=== PATIENT | female | born 1960 | race Caucasian/White ===

== ENCOUNTER → 2019-07-04 15:53 | Outpatient (BNVA) | payer BC, SELFPAY | PROVIDERS: PCP Family Medicine; Referring Provider Obstetrics & Gynecology; Visit Provider Obstetrics & Gynecology | DX: Z12.11 Encounter for screening for malignant neoplasm of colon (principal) | CPT/HCPCS: G0328 ==

== ENCOUNTER 2019-07-22 11:56 | Outpatient (CLI) | payer BC, SELFPAY ==
[2019-07-22 12:54] LABS: Basophils % 0.6 %; Eosinophils % 0.6 %; Hematocrit 42.5 % (37.0-47.0); Hemoglobin 13.7 g/dL (11.5-15.3); Lymphocytes # 1.5 10^3/uL (0.8-4.8); Lymphocytes % 23.2 %; Mean Corpuscular HGB Conc 32.2 g/dL (30.0-36.0); Mean Corpuscular Hemoglobin 32.9 pg (28.0-34.0); Mean Corpuscular Volume 102.2 fL (81-99); Mean Platelet Volume 10.7 fL (7.4-10.4); Monocytes # 0.6 10^3/uL (0.2-0.9); Monocytes % 9.8 %; Neutrophils # 4.1 10^3/uL (1.8-7.7); Neutrophils % 65.3 %; Nucleated Red Blood Cells % 0 %; Platelet Count 252 10^3/cmm (130-400); Red Blood Count 4.16 10^6/uL (4.1-5.3); Red Cell Distribution Width 13.6 % (12.1-15.1); White Blood Count 6.2 10^3/uL (4.0-10.0)
[2019-07-22 13:00] LABS: Albumin Level 4.6 g/dL (3.5-5.2); Anion Gap 19.2 (5-19); Blood Urea Nitrogen 20 mg/dL (6-20); Calcium 10.4 mg/dL (8.5-10.5); Carbon Dioxide 26 mmol/L (22-29); Chloride 102 mmol/L (98-107); Glomerular Filtration Rate 33.2 mL/min (90-130); Glucose 101 mg/dL (65-115); Phosphorus 3.5 mg/dL (2.5-4.5); Potassium 4.2 mmol/L (3.5-5.1); Sodium 143 mmol/L (136-145)
[2019-07-22 13:18] LABS: Urine Creatinine 296 mg/dL (28-217); Urine Protein Random 18 mg/dL
[2019-07-22 13:19] LABS: 25 Hydroxy Vitamin D 50 ng/mL (30-100)
[2019-07-22 13:24] LABS: UPRO/UCREAT Ratio 0.06 mg/mg CR
[2019-07-22 13:29] LABS: Calcium 10.1 mg/dL (8.5-10.5); Parathyroid Hormone 39.1 pg/mL (15-65)
== END 2019-07-22 11:57 | disposition home or self-care (01) ==
LOC: LAB 12:07
PROVIDERS: PCP Family Medicine; Visit Provider Internal Medicine Nephrology
DX: N18.3 Chronic kidney disease, stage 3 (moderate) (principal)
CPT/HCPCS: 80069; 82306; 82310; 82570; 83970; 84156; 85025

== ENCOUNTER 2019-11-29 16:26 | Outpatient (CLI) | payer BC, SELFPAY ==
[2019-11-29 17:04] LABS: Basophils # 0.1 10^3/uL (0.0-0.1); Basophils % 0.7 %; Eosinophils # 0.1 10^3/uL (0.0-0.8); Eosinophils % 1.3 %; Hematocrit 41.2 % (37.0-47.0); Hemoglobin 13.5 g/dL (11.5-15.3); Lymphocytes # 3.2 10^3/uL (0.8-4.8); Lymphocytes % 42.2 %; Mean Corpuscular HGB Conc 32.8 g/dL (30.0-36.0); Mean Corpuscular Hemoglobin 34.8 pg (28.0-34.0); Mean Corpuscular Volume 106.2 fL (81-99); Mean Platelet Volume 10.4 fL (7.4-10.4); Monocytes # 0.7 10^3/uL (0.2-0.9); Monocytes % 9.3 %; Neutrophils # 3.48 10^3/uL (1.8-7.7); Neutrophils % 45.8 %; Nucleated Red Blood Cells % 0 %; Platelet Count 252 10^3/cmm (130-400); Red Blood Count 3.88 10^6/uL (4.1-5.3); Red Cell Distribution Width 12.9 % (12.1-15.1); White Blood Count 7.6 10^3/uL (4.0-10.0)
[2019-11-29 17:47] LABS: Calcium 9.5 mg/dL (8.5-10.5); Parathyroid Hormone 76.7 pg/mL (15-65)
[2019-11-29 17:50] LABS: 25 Hydroxy Vitamin D 52 ng/mL (30-100); Albumin Level 4.7 g/dL (3.5-5.2); Anion Gap 14.9 (5-19); Blood Urea Nitrogen 28 mg/dL (6-20); Calcium 8.9 mg/dL (8.5-10.5); Carbon Dioxide 27 mmol/L (22-29); Chloride 103 mmol/L (98-107); Glomerular Filtration Rate 33.2 mL/min (90-130); Glucose 123 mg/dL (65-115); Phosphorus 3.9 mg/dL (2.5-4.5); Potassium 3.9 mmol/L (3.5-5.1); Sodium 141 mmol/L (136-145)
[2019-11-29 17:56] LABS: Urine Creatinine 292 mg/dL (28-217); Urine Protein Random 18 mg/dL
[2019-11-29 17:57] LABS: UPRO/UCREAT Ratio 0.06 mg/mg CR
== END 2019-11-29 16:27 | disposition home or self-care (01) ==
PROVIDERS: PCP Family Medicine; Visit Provider Nurse Practitioner
DX: N18.3 Chronic kidney disease, stage 3 (moderate) (principal)
CPT/HCPCS: 36415; 80069; 82306; 82310; 82570; 83970; 84156; 85025

== ENCOUNTER 2020-02-24 09:55 | Outpatient (CLI) | payer BC, SELFPAY ==
--- NOTE | 2020-02-24 10:02 | MM_ITS ---
WS: [id number] Exam: [place] [id number] Date/Time of Exam: 02/24/2020 10:25 AM Reason For Exam: SCREENING VIEWS: MLO and CC views both breasts. Comparison made with prior exam of 01/01/2015. Findings: There was no sign of mass, architectural distortion or suspicious calcification in either breast. He terogeneously dense MM/[id number] Impression: BI-RADS: 2-Benign FOLLOW-UP: 1 Year Follow-up This mammogram was also analyzed by the Computer Aided Detection System R2 Imag e Sap Consultant.
== END 2020-02-24 09:56 | disposition home or self-care (01) ==
LOC: RADSHAW 10:00
PROVIDERS: PCP Family Medicine; Visit Provider Obstetrics & Gynecology
DX: M31.6 Other giant cell arteritis (principal); Z12.31 Encounter for screening mammogram for malignant neoplasm of breast; Z79.899 Other long term (current) drug therapy; Z11.59 Encounter for screening for other viral diseases; Z11.1 Encounter for screening for respiratory tuberculosis; M32.9 Systemic lupus erythematosus, unspecified; D86.9 Sarcoidosis, unspecified; H53.9 Unspecified visual disturbance; Z79.52 Long term (current) use of systemic steroids
CPT/HCPCS: 36415; 77067; 80053; 85025; 85651; 86140; 86431; 86480; 86704; 86803; 87340; 99214

== ENCOUNTER 2020-05-17 09:59 | Inpatient (IN) | payer BC, SELFPAY ==
[2020-05-17] VITALS (24 sets, daily range): BP systolic 102–162; BP diastolic 60–105; PULSE 70–120; RESP 15–21; TEMP 36.5–37; O2SAT 88–99; BMI 38.2; BMI 17.4
--- NOTE | 2020-05-17 | CTR_ITS ---
PROCEDURE INFORMATION: Exam: CT Head Without Contrast Exam date and time: 05/17/2020 10:35 PM Age: 60 years old Clinical indication: Speech disturbance and weakness, extremity; Left; Patient HX: Sudden onset aphasia and lue weakness; Additional info: Stroke alert TECHNIQUE: Imaging protocol: Computed tomography of the head without contrast. Radiation optimization: All CT scans at this facility use at least one of these dose optimization techniques: automated exposure control; mA and/or kV adjustment per patient size (includes targeted exams where dose is matched to clinical indication); or iterative reconstruction. Other technique: STROKE PROTOCOL was implemented. COMPARISON: CT head wo con* [id number] 11/16/2017 3:53 PM RADIATION DOSE METRICS: Total DLP (mGy-cm): 769.39 FINDINGS: Brain: Normal. No hemorrhage. Unremarkable white matter. No mass effect. Cerebral ventricles: No ventriculomegaly. Bones/joints: Unremarkable. No acute fracture. Paranasal sinuses: Visualized sinuses are unremarkable. No fluid levels. Mastoid air cells: Visualized mastoid air cells are well aerated. Soft tissues: Unremarkable. CT/CT head wo con* [id number] IMPRESSION: No acute intracranial abnormality. Stable head CT compared with 11/16/2017. ASSESSMENT: ASPECTS ([place] Stroke Program Early CT Score) is 10. Radiation Dose CTDIVOL = (mGy): DLP = 769.39 (mGy-cm)
--- NOTE | 2020-05-17 | SCC_ITS ---
Procedure Done: 1. Cystoscopy with right ureteral stent placement 9.1 seconds of fluoroscopic guidance, for a cumulative dose of 2.8 mGy, was provided to Dr. Elder by the radiology department. C-arm images of the abdomen were saved for the patient's permanent record. [facility]
--- NOTE | 2020-05-17 10:58 | W.ED.FEMALGU ---
HPI - Female Genitourinary General: Chief complaint: Urogenital-Female Stated complaint: Sick/Back pain Time Seen by Provider: 05/17/20 10:39 History of Present Illness: HPI Narrative: The patient is a 60-year-old female with past medical history of left nephrectomy, chronic kidney disease, and hypertension. She comes to the ER complaining of right flank pain wrapping to her right groin and nausea vomiting since she woke this morning. She has not had this before but says she feels like it is a stone or an infection or something. Denies urinary symptoms. Admits mild diarrhea. MD elicited complaint: flank pain Onset (ago): hour(s) (5) Severity: moderate Severity scale (1-10): 10 Quality of pain: sharp Consistency: constant Associated symptoms: Reports abdominal pain and nausea; Deny headache(s) Review of Systems General: Reports: 10 or more systems reviewed and unremarkable except in HPI and below Const: Denies: fatigue Eyes: Denies: change in vision, blurry vision or eye redness ENMT: Denies: throat pain, swelling of lips/tongue, ear or mastoid pain or nasal congestion Card: Denies: chest pain, palpitations, irregular heart rhythm, edema, dyspnea on exertion or orthopnea Resp: Denies: dyspnea, productive cough or non-productive cough GI: Reports: abdominal pain, nausea, vomiting and diarrhea : Reports: flank pain; Denies: difficulty voiding, urinary frequency or urinary urgency Musc: Denies: neck pain, back pain, extremity pain, joint pain, joint redness, limited range of motion or muscle weakness Skin/Breast: Denies: rash, pruritus, erythema, skin pain or skin tenderness Neuro: Denies: headache(s), numbness in extremities, weakness in extremities, sensory changes, difficulty walking, dizziness, confusion or Slurred speech present Psych: Denies: anxiety or depression Endo: Denies: polyuria All/Imm: Denies: urticaria, throat swelling or tongue swelling PFSH ED PFSH: Medical History (Updated 05/17/20 @ 14:37 by Link Ramírez MD) Asthma Chronic kidney disease, stage 3 Current chronic use of systemic steroids Depression Dermatitis Gastroesophageal reflux History of melanoma Right arm - removed 11/2013. Right forearm - removed 08/2011. 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 08/2011: Removed from right forearm. H/O oral surgery (~2013) Remove growth from mouth - benign. H/O: hysterectomy (12/11/07) LAVH/BSO. Dx: Uterine fibroids, Menorrhagia, Dysmenorrhea. Performed by Dr. Kelly at [facility] in [place], [place]. History of colonoscopy (~03/2015) Dr. Stewart [place] teeth extracted (~2004) Family History Grandfather Stroke Maternal grandfather Mother Hyperlipidemia Hypertension Father Heart disease Grandmother Heart disease Paternal grandmother Diabetes Paternal grandmother Hypertension Maternal grandmother Denies family history of Anesthesia complication Bleeding disorder Social History Smoking and tobacco status: former smoker Quit status (tobacco): has quit using tobacco Year quit tobacco: 1990 Alcohol intake: current Alcohol intake frequency: holidays/special occasions only History of recent travel: No Physical Exam Const: COMMON NORMALS: no acute distress, average body habitus, patient oriented x3, no limitations, healthy appearing, alert and well nourished GENERAL APPEARANCE: cooperative, comfortable, well kempt and well developed ORIENTATION/CONSCIOUSNESS: Yes awake, Yes oriented to person, Yes oriented to place and Yes oriented to time HENMT: COMMON NORMALS: normocephalic, external ears normal and Normal external nose present HEAD & SCALP: normal to inspection and normocephalic NOSE: Normal external nose present EXTERNAL EAR: Yes external ears normal MOUTH: Normal oral and palatal mucosa present THROAT: posterior oropharynx normal Eye: COMMON NORMALS: Equal, round and reactive pupils present and EOMs intact bilaterally GENERAL EYE: appearance normal, both eyes and all related structures PUPIL: Yes Equal, round and reactive pupils present Neck/C-Spine: COMMON NORMALS: full ROM, no lymphadenopathy, no meningeal signs and no JVD GENERAL: Yes normal visual inspection Lymph: LYMPHATIC: no lymphadenopathy noted Chest: COMMONS NORMALS: normal inspection of the chest and normal palpation of entire chest wall Resp: COMMON NORMALS: normal respiratory effort, No retractions, No use of accessory muscles, clear to auscultation bilaterally and percussion normal EFFORT & INSPECTION: Yes able to speak in complete sentences AUSCULTATION: clear to auscultation bilaterally PERCUSSION: percussion normal Cardio: COMMON NORMALS: no JVD, regular rate, regular rhythm, S1 normal heart sound present, S2 normal heart sound present and Peripheral pulses 2+ throughout RATE: regular rate RHYTHM: regular rhythm HEART SOUNDS: S1 normal heart sound present and S2 normal heart sound present PERIPHERAL PULSES: Peripheral pulses 2+ throughout GI: COMMON NORMALS: Normal to inspection, nondistended, normoactive bowel sounds present, Soft to palpation, non-tender and no masses INSPECTION: Yes normal to inspection PALPATION: Yes Soft to palpation OTHER: Positive right flank pain : OTHER: Positive right flank pain Back/Pelvis: COMMON NORMALS: thoracic and lumbar spine normal to inspection, no thoracic nor lumbar tenderness and thoraco-lumbar ROM normal Extremity: COMMON NORMALS: normal to inspection, full ROM, capillary refill normal, no joint enlargement and no pedal edema GENERAL: Yes normal exam except as noted Neuro: COMMON NORMALS: patient oriented x3, CN's II-XII intact bilaterally, moves all extremities, no focal motor deficits, no sensory deficits noted and gait normal SENSORIUM/ORIENTATION: Yes alert, Yes oriented to person, Yes oriented to place and Yes oriented to time MENINGEAL SIGNS: Yes no meningeal signs Psych: COMMON NORMALS: mental status grossly normal, Normal thought process present, cooperative, normal affect and speech normal APPEARANCE: Yes well kempt ATTITUDE: Yes calm SPEECH: Yes normal speech THOUGHT PROCESS: Normal thought process present Skin: COMMON NORMALS: no rashes or lesions noted GENERAL SKIN EXAM: no rashes or lesions noted Course Vital Signs: Vital signs: Vital Signs Temperature 97.7 F 05/17/20 10:02 Pulse Rate 83 05/17/20 10:02 Respiratory Rate 16 05/17/20 10:02 Blood Pressure 159/80 05/17/20 13:23 Pulse Oximetry 99 05/17/20 13:23 MDM - Female MDM Narrative: Medical decision making narrative: The patient has a 7 mm ureteropelvic junction stone. And a UTI. Started on levofloxacin IV. Discussed with Dr. Elder who will admit her and we are calling in the surgical team for a procedure. Lab Data: Labs: Lab Results 05/17/20 05/17/20 05/17/20 Range/Units 10:55 10:55 10:55 WBC 11.3 H (4.0-10.0) 10^3/ uL RBC 3.96 L (4.1-5.3) 10^6/u L Hgb 13.3 (11.5-15.3) g/dL Hct 40.0 (37.0-47.0) % MCV 101.0 H (81-99) fL MCH 33.6 (28.0-34.0) pg MCHC 33.3 (30.0-36.0) g/dL RDW 12.7 (12.1-15.1) % Plt Count 231 (130-400) 10^3/c mm MPV 10.3 (7.4-10.4) fL Neut % (Auto) 77.8 % Lymph % (Auto) 14.1 % Davidson % (Auto) 6.6 % Eos % (Auto) 0.8 % Baso % (Auto) 0.3 % Neut # (Auto) 8.79 H (1.8-7.7) 10^3/u L Lymph # (Auto) 1.6 (0.8-4.8) 10^3/u L Davidson # (Auto) 0.8 (0.2-0.9) 10^3/u L Eos # (Auto) 0.1 (0.0-0.8) 10^3/u L Baso # (Auto) 0.0 (0.0-0.1) 10^3/u L Nucleated RBC % (a uto) 0 % Nucleated RBCs # 0.0 /100WBC Sodium 141 (136-145) mmol/L Potassium 4.2 (3.5-5.1) mmol/L Chloride 104 (98-107) mmol/L Carbon Dioxide 24 (22-29) mmol/L Anion Gap 17.2 (5-19) BUN 23 H (6-20) mg/dL Creatinine 1.7 H (0.5-0.9) mg/dL GFR Calculation 30.9 L (90-130) mL/min Glucose 100 (65-115) mg/dL Calculated Osmolal ity 296 H (285-295) mOsm/k g Lactate 2.0 (0.5-2.2) mmol/L Calcium 9.5 (8.5-10.5) mg/dL Total Bilirubin 0.3 (0.15-1.2) mg/dL AST 25 (0-32) U/L ALT 24 (0-33) U/L Alkaline Phosphata se 76 (35-105) IU/L Total Protein 7.2 (6.6-8.7) g/dL Albumin 4.2 (3.5-5.2) g/dL Globulin 3.0 (1.3-4.6) g/dL Lipase 30 (13-60) U/L Urine Color (Yellow) Urine Appearance (CLEAR) Urine pH (5-7) Ur Specific Gravit y (1.005-1.030) Urine Protein (Negative) Urine Glucose (UA) (Normal) Urine Ketones (Negative) Urine Blood (Negative) Urine Nitrate (Negative) Urine Bilirubin (Negative) Urine Urobilinogen (Negative) mg/dL Ur Leukocyte [place] (Negative) Urine RBC (0-2) /hpf Urine WBC (0-5) /hpf Ur Squamous Epith Cells (0-5) /hpf Amorphous Sediment Urine Bacteria (NONE) /hpf 05/17/20 Range/Units 11:57 WBC (4.0-10.0) 10^3/ uL RBC (4.1-5.3) 10^6/u L Hgb (11.5-15.3) g/dL Hct (37.0-47.0) % MCV (81-99) fL MCH (28.0-34.0) pg MCHC (30.0-36.0) g/dL RDW (12.1-15.1) % Plt Count (130-400) 10^3/c mm MPV (7.4-10.4) fL Neut % (Auto) % Lymph % (Auto) % Davidson % (Auto) % Eos % (Auto) % Baso % (Auto) % Neut # (Auto) (1.8-7.7) 10^3/u L Lymph # (Auto) (0.8-4.8) 10^3/u L Davidson # (Auto) (0.2-0.9) 10^3/u L Eos # (Auto) (0.0-0.8) 10^3/u L Baso # (Auto) (0.0-0.1) 10^3/u L Nucleated RBC % (a uto) % Nucleated RBCs # /100WBC Sodium (136-145) mmol/L Potassium (3.5-5.1) mmol/L Chloride (98-107) mmol/L Carbon Dioxide (22-29) mmol/L Anion Gap (5-19) BUN (6-20) mg/dL Creatinine (0.5-0.9) mg/dL GFR Calculation (90-130) mL/min Glucose (65-115) mg/dL Calculated Osmolal ity (285-295) mOsm/k g Lactate (0.5-2.2) mmol/L Calcium (8.5-10.5) mg/dL Total Bilirubin (0.15-1.2) mg/dL AST (0-32) U/L ALT (0-33) U/L Alkaline Phosphata se (35-105) IU/L Total Protein (6.6-8.7) g/dL Albumin (3.5-5.2) g/dL Globulin (1.3-4.6) g/dL Lipase (13-60) U/L Urine Color Yellow (Yellow) Urine Appearance Cloudy (CLEAR) Urine pH 7 (5-7) Ur Specific Gravit y 1.015 (1.005-1.030) Urine Protein 3+ H (Negative) Urine Glucose (UA) Norm (Normal) Urine Ketones Negative (Negative) Urine Blood 3+ H (Negative) Urine Nitrate Negative (Negative) Urine Bilirubin Neg (Negative) Urine Urobilinogen Norm (Negative) mg/dL Ur Leukocyte [place] 2+ H (Negative) Urine RBC 5-10 H (0-2) /hpf Urine WBC Too numerous to c nt H (0-5) /hpf Ur Squamous Epith Cells None (0-5) /hpf Amorphous Sediment Not Reportable Urine Bacteria 2+ H (NONE) /hpf Discharge Plan Discharge Patient Disposition: Admitted As Inpatient Clinical Impression: Ureterolithiasis, UTI (urinary tract infection), Acute kidney injury Condition: Stable Coding Level of Care Code ED Diamond Sorter for g Fwd Exam Comprehensive
[2020-05-17 11:04] LABS: Basophils % 0.3 %; Eosinophils # 0.1 10^3/uL (0.0-0.8); Eosinophils % 0.8 %; Hemoglobin 13.3 g/dL (11.5-15.3); Lymphocytes # 1.6 10^3/uL (0.8-4.8); Lymphocytes % 14.1 %; Mean Corpuscular HGB Conc 33.3 g/dL (30.0-36.0); Mean Corpuscular Hemoglobin 33.6 pg (28.0-34.0); Mean Platelet Volume 10.3 fL (7.4-10.4); Monocytes # 0.8 10^3/uL (0.2-0.9); Monocytes % 6.6 %; Neutrophils # 8.79 10^3/uL (1.8-7.7); Neutrophils % 77.8 %; Nucleated Red Blood Cells % 0 %; Platelet Count 231 10^3/cmm (130-400); Red Blood Count 3.96 10^6/uL (4.1-5.3); Red Cell Distribution Width 12.7 % (12.1-15.1); White Blood Count 11.3 10^3/uL (4.0-10.0)
[2020-05-17] MEDS: sodium chloride 0.9% 1,000 ML 999 ML IV ×2 (11:04→12:48)
[2020-05-17] MEDS: ketorolac 30 mg/mL INJ 15 MG IVP (11:05)
[2020-05-17] MEDS: ondansetron 2 mg/ML SDV 2 mL 4 MG IVP ×2 (11:05→16:02)
[2020-05-17 11:23] LABS: Alanine Aminotransferase 24 U/L (0-33); Albumin Level 4.2 g/dL (3.5-5.2); Alkaline Phosphatase 76 IU/L (35-105); Anion Gap 17.2 (5-19); Aspartate Amino Transferase 25 U/L (0-32); Blood Urea Nitrogen 23 mg/dL (6-20); Calcium 9.5 mg/dL (8.5-10.5); Carbon Dioxide 24 mmol/L (22-29); Chloride 104 mmol/L (98-107); Glomerular Filtration Rate 30.9 mL/min (90-130); Glucose 100 mg/dL (65-115); Lipase 30 U/L (13-60); Osmolality Calculated 296 mOsm/kg (285-295); Potassium 4.2 mmol/L (3.5-5.1); Sodium 141 mmol/L (136-145); Total Bilirubin 0.3 mg/dL (0.15-1.2); Total Protein 7.2 g/dL (6.6-8.7)
--- NOTE | 2020-05-17 12:39 | CTR_ITS ---
PROCEDURE INFORMATION: Exam: CT Abdomen And Pelvis Without Contrast Exam date and time: 05/17/2020 1:26 PM Age: 60 years old Clinical indication: Abdominal pain; Right; Prior surgery; Surgery date: 6+ months; Surgery type: Hyst, R neph(donation); Patient HX: C/O R flank pain TECHNIQUE: Imaging protocol: Computed tomography of the abdomen and pelvis without contrast. Radiation optimization: All CT scans at this facility use at least one of these dose optimization techniques: automated exposure control; mA and/or kV adjustment per patient size (includes targeted exams where dose is matched to clinical indication); or iterative reconstruction. COMPARISON: CT Abdomen/Pelvis Renal [id number] 12/02/2013 3:44 PM RADIATION DOSE METRICS: Total DLP (mGy-cm): 1741.29 FINDINGS: Lungs: There is bilateral dependent atelectasis. Mediastinal space: A moderate size hiatal hernia is present. Liver: There is heterogeneous low attenuation of the liver, suggestive of fatty infiltration. In segment IVb, there is a new hypodense lesion with irregular margin measuring 2.8 x 2.2 x 4.4 cm. Gallbladder and bile ducts: Normal. No calcified stones. No ductal dilation. Pancreas: Normal. No ductal dilation. Spleen: A small accessory splenule is noted in the left upper quadrant. The spleen is unremarkable. Adrenal glands: Normal. No mass. Kidneys and ureters: The left kidney is absent. There is a 0.7 cm obstructing stone in the left UPJ/proximal ureter, resulting in mild hydronephrosis and stranding of the perirenal fat. Additional nonobstructing stones measuring 1.4 cm and 0.2 cm are noted in the right lower kidney. Stomach and bowel: Unremarkable. No obstruction. No mucosal thickening. Appendix: No evidence of appendicitis. Intraperitoneal space: Unremarkable. No free air. No significant fluid collection. Vasculature: Unremarkable. No abdominal aortic aneurysm. Lymph nodes: Unchanged prominent lymph node measuring 2.0 cm in the right pericardiophrenic fat/angle. Urinary bladder: Unremarkable as visualized. Reproductive: Unremarkable as visualized. Bones/joints: Unremarkable. No acute fracture. Soft tissues: Unremarkable. CT/CT kidney stone [id number] IMPRESSION: 1. Obstructing stone in the right UPJ/proximal ureter, resulting in mild hydronephrosis. Additional nonobstructing stones in the right lower kidney. 2. New hypodense lesion in segment IVb of the liver. Further evaluation with contrast enhanced abdomen MRI in a non emergent basis is recommended. Radiation Dose CTDIVOL = (mGy): DLP = 1741.29 (mGy-cm)
[2020-05-17 13:13] LABS: Bilirubin Urine Neg (Negative); Blood Urine 3+ (Negative); Glucose Urine UA Norm (Normal); Ketones Urine Negative (Negative); Leukocyte Esterase Urine 2+ (Negative); Nitrate Urine Negative (Negative); Protein Urine 3+ (Negative); Specific Gravity, Urine 1.015 (1.005-1.030); Urine Appearance Cloudy (CLEAR); Urine Color Yellow (Yellow); Urobilinogen Urine Norm (Negative); pH Urine 7 (5-7)
[2020-05-17] MEDS: levofloxacin-dextrose 5% 250 MG/50 ML PREMIX 50 MG IV ×2 (13:13→16:25)
[2020-05-17 13:14] LABS: Add Urine Culture? Yes; Add Urine Microscopic? YES; Bacteria Urine 2+ /hpf; WBC Urine TOO NUMEROUS TO CNT /hpf (0-5)
--- NOTE | 2020-05-17 15:10 | PM.HP ---
Providers/Chief Complaint Primary Care Provider: Maira Gilbert MD Chief Complaint: Sick/Back pain History of Present Illness Zeina Sawant is a 60 year old female who presented to the emergency department today with evidence of right flank pain suspicious for renal calculus. No prior history of stones. Work-up: 1. Urinalysis showed too numerous to count white cells, 2+ bacteria, nitrite negative. 2. White count was elevated 11,000. 3. Creatinine was 1.[address] scan showed a 7 mm right proximal ureteral stone with significant obstructive changes. She denies any significant UTI preceding symptoms but does admit to a chronic history of urgency and frequency. Denies fever or chills. Has had nausea and vomiting. In addition she is on chronic steroids for temporal artery arteritis. No contraindications to surgical intervention. I reviewed with her the risks associated with infection and obstruction. I have recommended emergency right ureteral stent placement. Also reviewed the possibility of ureteroscopy if the wire is not easily able to pass the stone. Discussed percutaneous nephrostomy if inability to gain access in a retrograde fashion. She has been treated with antibiotics. Informed consent was obtained. Review of Systems Const: Denies: fever(s), chills or body aches Eyes: Denies: change in vision or blurry vision ENMT: Denies: throat pain or hoarseness Card: Denies: chest pain or palpitations Resp: Denies: dyspnea, productive cough or wheezing GI: Reports: abdominal pain, nausea and vomiting : Reports: flank pain, urinary frequency and urinary urgency; Denies: difficulty voiding or dysuria Musc: Denies: joint swelling, joint redness or joint warmth Skin/Breast: Denies: rash or changing lesions Neuro: Denies: headache(s), confusion, Slurred speech present or seizure-like activity Psych: Denies: anxiety or memory loss Endo: Denies: polyuria or flushing Devon/Lymph: Denies: easy bruising or easy bleeding All/Imm: Denies: urticaria or acute wheezing Medications/Allergies Home Medications Medication Instructions Recorded Confirmed Last Taken Type albuterol sulfate 90 mcg/actuation 1 puff INHALATION Q4H PRN gm 04/09/19 05/17/20 Unknown History aerosol inhaler cetirizine 10 mg capsule 10 mg PO DAILY@0600 cap 04/09/19 05/17/20 05/16/20 History fluticasone propionate 110 2 puff INHALATION DAILY PRN gm 04/09/19 05/17/20 Unknown History mcg/actuation HFA aerosol inhaler fluticasone propionate 50 2 spray INTRANASAL DAILY@0600 ml 04/09/19 05/17/20 05/16/20 History mcg/actuation nasal spray,suspension cholecalciferol (vitamin D3) 100 2,000 unit PO BID@0600,2300 cap 06/24/19 05/17/20 05/16/20 History mcg (4,000 unit) capsule lisinopril 5 mg tablet 10 mg PO DAILY@0600 tab 09/03/19 05/17/20 05/16/20 History Pepcid 20 mg PO BID@0600,2300 05/17/20 05/17/20 05/16/20 History Zoloft 150 mg PO DAILY@0600 05/17/20 05/17/20 05/16/20 History estradiol 0.5 mg PO BID@0600,2300 05/17/20 05/17/20 05/16/20 History afyxjfkcwhfl-hbqhrxbr-tsmjle 1 tab PO DAILY@0600 05/17/20 05/17/20 05/16/20 History [Multivitamin 50 Plus] prednisone 2 mg PO BID@0600,2300 05/17/20 05/17/20 05/16/20 History tocilizumab [Actemra] 162 mg SUBCUT Q7D 05/17/20 05/17/20 05/11/20 History Allergies Allergy/AdvReac Type Severity Reaction Status Date / Time No Known Allergies Allergy Verified 02/24/20 11:33 PFSH Acute PFSH: Medical History (Updated 05/17/20 @ 15:19 by Carlton Elder MD) Asthma Chronic kidney disease, stage 3 Current chronic use of systemic steroids Depression Dermatitis Gastroesophageal reflux History of melanoma Right arm - removed 11/2013. Right forearm - removed 08/2011. 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 08/2011: Removed from right forearm. H/O oral surgery (~2013) Remove growth from mouth - benign. H/O: hysterectomy (12/11/07) LAVH/BSO. Dx: Uterine fibroids, Menorrhagia, Dysmenorrhea. Performed by Dr. Kelly at [facility] in [place], [place]. History of colonoscopy (~03/2015) Dr. Stewart [place] teeth extracted (~2004) Family History Grandfather Stroke Maternal grandfather Mother Hyperlipidemia Hypertension Father Heart disease Grandmother Heart disease Paternal grandmother Diabetes Paternal grandmother Hypertension Maternal grandmother Denies family history of Anesthesia complication Bleeding disorder Social History Smoking and tobacco status: former smoker Quit status (tobacco): has quit using tobacco Year quit tobacco: 1990 Alcohol intake: current Alcohol intake frequency: holidays/special occasions only History of recent travel: No Vitals/I&O/Wt Last Vital Signs Temp 97.7 F 05/17/20 10:02 Pulse 83 05/17/20 10:02 Resp 16 05/17/20 10:02 BP 159/80 05/17/20 13:23 Pulse Ox 99 05/17/20 13:23 05/17/20 05/17/20 05/17/20 06:59 14:59 22:59 Intake Total 2049 Balance 2049 Weight last 48 hrs Weight 230 lb Physical Exam Const: COMMON NORMALS: no acute distress, alert and well nourished GENERAL APPEARANCE: well kempt and well developed ORIENTATION/CONSCIOUSNESS: not confused HENMT: HEAD & SCALP: normocephalic and atraumatic Eye: COMMON NORMALS: conjunctivae normal and no scleral icterus Neck/C-Spine: COMMON NORMALS: full ROM GENERAL: Yes normal visual inspection Lymph: LYMPHATIC: no lymphadenopathy noted and no lymphedema noted Resp: COMMON NORMALS: normal respiratory effort EFFORT & INSPECTION: No labored and No Actively coughing AUSCULTATION: clear to auscultation bilaterally Cardio: COMMON NORMALS: regular rate, regular rhythm and No murmurs present (Cardio) RATE: regular rate RHYTHM: regular rhythm BRUITS: no carotid bruits GI: COMMON NORMALS: Soft to palpation INSPECTION: Yes normal to inspection PALPATION: Yes Tenderness to palpation present (GI) Details: RLQ and RUQ : COMMON NORMALS: No no CVA tenderness and Yes normal external appearance BLADDER/KIDNEY EXAM: Yes bladder normal to palpation EXTERNAL FEMALE EXAM: Yes normal appearance of the urethra Back/Pelvis: GENERAL BACK: Yes CVA tenderness CVA tenderness: right Extremity: COMMON NORMALS: no clubbing, cyanosis or edema Neuro: COMMON NORMALS: no focal motor deficits SENSORIUM/ORIENTATION: Yes alert Psych: COMMON NORMALS: mental status grossly normal APPEARANCE: Yes grossly normal and Yes well kempt ATTITUDE: Yes calm and Yes engaged Skin: COMMON NORMALS: no rashes or lesions noted and no jaundice GENERAL SKIN EXAM: no rashes or lesions noted, turgor normal and no mottling Data : 05/17/20 10:55 05/17/20 10:55 A&P Assessment and plan (1) Ureterolithiasis: 7 mm right UPJ stone with obstruction, complicated by UTI Status: Acute (2) UTI (urinary tract infection): Too numerous to count white blood cells. Elevated white count. No clear evidence of sepsis. Status: Acute Qualifiers: Urinary tract infection type: site unspecified (3) Acute kidney injury: Creatinine 1.7. Status: Acute (4) Temporal giant cell arteritis: On chronic steroids Status: Acute (5) Chronic kidney disease, stage 3: Status: Acute (6) Current chronic use of systemic steroids: Status: Acute Attestations Medical Necessity Statement*: Evidence of obstructive pyelonephritis. Plan for emergency stent placement, IV antibiotics, delayed treatment of the stone until infection improved. Coding Level of Care Code Acute Traffic Sign Supervisor for [facility] Fwd Exam Comprehensive Diagnoses Ureterolithiasis N20.1 UTI (urinary tract infection) N39.0 Urinary tract infection type: site unspecified Acute kidney injury N17.9 Temporal giant cell arteritis M31.6 Chronic kidney disease, stage 3 N18.3 Current chronic use of systemic steroids Z79.52
--- NOTE | 2020-05-17 15:40 | SC_ITS ---
WS: [id number] INTRAOPERATIVE TECHNIQUE: 2 Spot fluoroscopic images for intraoperative purposes. FLUOROSCOPY TIME: 9.1 seconds CLINICAL INFORMATION: ureter stone COMPARISON: None. FINDINGS: Partially visualized right ureteral stent SC/C-arm [place] for Urology IMPRESSION: Images obtained for intraoperative purposes.
--- NOTE | 2020-05-17 15:57 | P.ANESASSM_ITS ---
Pre-Anesthetic Assessment Pre-Anesthetic Assessment: Height/Weight: Height 1.65 m Weight 104.326 kg Temp Pulse Resp BP Pulse Ox 97.7 F 83 16 159/80 99 05/17/20 10:02 05/17/20 10:02 05/17/20 10:02 05/17/20 13:23 05/17/20 13:23 Preop Diagnosis: Ureteral stone Proposed Procedure: Operation Date: 05/17/20 15:35 Proposed Procedures p Cystoscopy(Not Applicable) - Carlton Elder MD s Ureteral Stent Placement(Not Applicable) - Carlton Elder MD Familial anesthetic complications: None Was Beta Ronn taken within 24 hours: N/A Last intake: NPO > 8 hrs Social: Comment: former smoker Exam: Pre-Anes Outpt Exam: alert, oriented x 3, clear to auscultation b ilaterally and regular rate & rhythm Airway: Cervical ROM: WNL MP: 3 Dentition: Other (1 missing tooth) Pulmonary: Pulmonary: Asthma CV/HEM: CV/HEM: HTN : : Chronic renal Insufficiency (Donated L kidney) Musc/skel: Comments: giant cell arteritis on steroids Anesthetic Plan: ASA status: 3E Anesthesia: General Risk of > 500 ml blood loss (7ml/kg in children): No PFSH Anesthesia PFSH: Medical History (Updated 05/17/20 @ 15:19 by Carlton Elder MD) Asthma Chronic kidney disease, stage 3 Current chronic use of systemic steroids Depression Dermatitis Gastroesophageal reflux History of melanoma Right arm - removed 11/2013. Right forearm - removed 08/2011. 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 08/2011: Removed from right forearm. H/O oral surgery (~2013) Remove growth from mouth - benign. H/O: hysterectomy (12/11/07) LAVH/BSO. Dx: Uterine fibroids, Menorrhagia, Dysmenorrhea. Performed by Dr. Kelly at [facility] in [place], [place]. History of colonoscopy (~03/2015) Dr. Giurgius Harrod teeth extracted (~2004) Family History Grandfather Stroke Maternal grandfather Mother Hyperlipidemia Hypertension Father Heart disease Grandmother Heart disease Paternal grandmother Diabetes Paternal grandmother Hypertension Maternal grandmother Denies family history of Anesthesia complication Bleeding disorder Social History Smoking and tobacco status: former smoker Quit status (tobacco): has quit using tobacco Year quit tobacco: 1990 Alcohol intake: current Alcohol intake frequency: holidays/special occasions only History of recent travel: No Data Anesthesia CBC & Chem 7: 05/17/20 10:55 05/17/20 10:55 Other Labs: Laboratory Results - last 48 hr 05/17/20 05/17/20 05/17/20 10:55 10:55 10:55 WBC 11.3 H RBC 3.96 L Hgb 13.3 Hct 40.0 MCV 101.0 H MCH 33.6 MCHC 33.3 RDW 12.7 Plt Count 231 MPV 10.3 Neut % (Auto) 77.8 Lymph % (Auto) 14.1 Kershaw % (Auto) 6.6 Eos % (Auto) 0.8 Baso % (Auto) 0.3 Neut # (Auto) 8.79 H Lymph # (Auto) 1.6 Kershaw # (Auto) 0.8 Eos # (Auto) 0.1 Baso # (Auto) 0.0 Nucleated RBC % (auto) 0 Nucleated RBCs # 0.0 Sodium 141 Potassium 4.2 Chloride 104 Carbon Dioxide 24 Anion Gap 17.2 BUN 23 H Creatinine 1.7 H GFR Calculation 30.9 L Glucose 100 Calculated Osmolality 296 H Lactate 2.0 Calcium 9.5 Total Bilirubin 0.3 AST 25 ALT 24 Alkaline Phosphatase 76 Total Protein 7.2 Albumin 4.2 Globulin 3.0 Lipase 30 Urine Color Urine Appearance Urine pH Ur Specific Kinsley Urine Protein Urine Glucose (UA) Urine Ketones Urine Blood Urine Nitrate Urine Bilirubin Urine Urobilinogen Ur Leukocyte Esterase Urine RBC Urine WBC Ur Squamous Epith Cells Amorphous Sediment Urine Bacteria 05/17/20 11:57 WBC RBC Hgb Hct MCV MCH MCHC RDW Plt Count MPV Neut % (Auto) Lymph % (Auto) Kershaw % (Auto) Eos % (Auto) Baso % (Auto) Neut # (Auto) Lymph # (Auto) Kershaw # (Auto) Eos # (Auto) Baso # (Auto) Nucleated RBC % (auto) Nucleated RBCs # Sodium Potassium Chloride Carbon Dioxide Anion Gap BUN Creatinine GFR Calculation Glucose Calculated Osmolality Lactate Calcium Total Bilirubin AST ALT Alkaline Phosphatase Total Protein Albumin Globulin Lipase Urine Color Yellow Urine Appearance Cloudy Urine pH 7 Ur Specific Kinsley 1.015 Urine Protein 3+ H Urine Glucose (UA) Norm Urine Ketones Negative Urine Blood 3+ H Urine Nitrate Negative Urine Bilirubin Neg Urine Urobilinogen Norm Ur Leukocyte Esterase 2+ H Urine RBC 5-10 H Urine WBC Too numerous to cnt H Ur Squamous Epith Cells None Amorphous Sediment Not Reportable Urine Bacteria 2+ H Cardiac Studies: No Data to Display
[2020-05-17] MEDS: morphine 4 mg/mL SDV 1 mL 2 MG IVP (16:01)
[2020-05-17] MEDS: sodium chloride 0.9% 1,000 ML 30 ML IV (16:12)
[2020-05-17] MEDS: scopolamine 1.5 Patch 1 PATCH TRANSDERMA (16:15)
--- NOTE | 2020-05-17 16:16 | PM.OP ---
Operative Report Date of procedure: May 17, 2020 Pre-op Diagnosis: Obstructive pyelonephritis, right proximal ureteral stone Post-op diagnosis: same Procedure Done: 1. Cystoscopy with right ureteral stent placement Implants: 7 Fr by 26 cm double-pigtail stent no string Pathology: none sent Surgeon: Jael Anesthesia: General Estimated blood loss: Minimal Urine output: Not measured Complications: None Findings: Stent placed without difficulty. Condition: stable Disposition: PACU Brief History: Mrs. Sawant is a 60-year-old white female who I evaluated for the first time tonight at the request of the emergency department for evidence of obstructive pyelonephritis related to a 7 mm proximal ureteral stone, pyuria, elevated white count, and history of lower urinary tract symptoms suspicious for possible chronic cystitis. It was recommended based on these findings to take her to the operating room for ureteral stent placement with anticipation of antibiotic therapy to clear the infection before dealing with the stone definitively Procedure: After emergent evaluation examination and obtaining of informed consent she was taken to the operating suite on 05/17/2020 where general anesthesia was administered without difficulty after appropriate timeout was performed, SCDs confirmed to be functioning, preoperative antibiotics administered, beta-bo protocol confirmed, preoperative steroids bolused. Prepped and draped in usual sterile fashion in dorsolithotomy position paying careful attention to avoiding pressure points. 21 Albanian cystoscope with 30 degree lens was introduced into the urethral meatus and advanced into the bladder under videoscopy. The bladder was systematically examined with 30 and 70 degree lenses. No stones were seen. The bladder showed evidence of infection. The urine was cloudy. A flexible tip guidewire was then advanced up the right ureter bypassing the stone curling in the area of the upper pole calyx. A significant amount of high-pressure urine drained which was cloudy. A seven Albanian by 26 cm double-pigtail stent was advanced over the guidewire through the cystoscope into appropriate position as confirmed via fluoroscopy and cystoscopy. Bladder was drained. Procedure completed. She tolerated the procedure well without complications and was awakened in the operating room and returned to the recovery in stable condition.
--- NOTE | 2020-05-17 17:01 | P.PCN_ITS ---
PACU note PACU note: VSS, Good respiratory effort, report to PEDIATRICIAN Post-Anesthesia Exam: awake
--- NOTE | 2020-05-17 17:01 | PM.PACU ---
PACU note PACU note: VSS, Good respiratory effort, report to AUTOMOTIVE TECHNICIAN Post-Anesthesia Exam: awake
--- NOTE | 2020-05-17 17:05 | SUR.PHASEI ---
1710- ORAL AIRWAY REMOVED, SIMPLE MASK IN PLACE AT 6LPM SAT 97%
--- NOTE | 2020-05-17 19:00 | ANE.PACU2 ---
Inpatient post-anesthesia follow up: Airway intact: Yes Vital signs: Temperature 98.6 F Pulse Rate [Monito r] 83 Pulse Rate 101 Respiratory Rate 16 Blood Pressure [Le ft Arm] 162/105 Blood Pressure 148/71 Pulse Oximetry 90 Oxygen Delivery Me thod Nasal Cannula Oxygen Flow Rate 1.5 Fraction of Inspir ed Oxygen Hydration adequate: Yes Nausea and vomiting: No Pain level: 3 Mental status: Baseline
[2020-05-17] MEDS: estradiol 1 mg Tablet 0.5 MG PO (22:07)
[2020-05-17] MEDS: predniSONE 1 mg Tablet 2 MG PO (22:08)
[2020-05-17] MEDS: famotidine 20 mg Tablet PO (22:11)
[2020-05-17 22:32] LABS: Glucose Point of Care 159 mg/dL (70-110)
--- NOTE | 2020-05-17 22:33 | PC.RESP ---
Stroke Alert called on pt. Rt went to pt's room to assess any change in the pt's respiratory or oxygenation status. Pt's o2 saturation was 88% on 3lpm. Rt increased pt's o2 to 4lpm to achieve an o2 saturation of 93-94%. Pt is being transported to CT STAT. Rt will continue to monitor the pt's oxygenation.
--- NOTE | 2020-05-17 23:37 | P.CONIM_ITS ---
Providers/Reason For Consult Consulting Physican/Specialty*: Hospitalist Reason for Consult*: Acute CVA Attending Physician: Carlton Elder MD Primary Care Provider: Maira Gilbert MD History of Present Illness History of Present Illness Zeina Sawant is a 60 year old female admitted under urology service for right ureteral obstruction. Patient underwent cystoscopy and placement of right ureteral stent today around 4 PM and then transferred to the floor. Nurse report patient was last seen normal at 8:30 pm. Nursing staff called and informed me patient has developed left facial droop. Stroke alert was called, patient was seen and examined and noted to have left sided hemiparesis and mild dysarthria. Her NIH scale noted to be 8. [facility] neurology was contacted, and stat head CT obtained. Head CT was reported as no acute infarct. Upon further discussion with Dr. Reese, he recommended TPA as patient still falls within the window. Multiple attempts was made for Dr. Reese to conduct a Neuro Tele examinations but he could not be connected. Patient transferred to the ICU and TPA initiated for stroke protocol. Review of Systems Narrative: Except as documented, all other systems reviewed and negative. Meds/Allergies Home Medications and Allergies Home Medications Medication Instructions Recorded Confirmed Last Taken Type albuterol sulfate 90 mcg/actuation 1 puff INHALATION Q4H PRN gm 04/09/19 05/17/20 Unknown History aerosol inhaler cetirizine 10 mg capsule 10 mg PO DAILY@0600 cap 04/09/19 05/17/20 05/16/20 History fluticasone propionate 110 2 puff INHALATION DAILY PRN gm 04/09/19 05/17/20 Unknown History mcg/actuation HFA aerosol inhaler fluticasone propionate 50 2 spray INTRANASAL DAILY@0600 ml 04/09/19 05/17/20 05/16/20 History mcg/actuation nasal spray,suspension cholecalciferol (vitamin D3) 100 2,000 unit PO BID@0600,2300 cap 06/24/19 05/17/20 05/16/20 History mcg (4,000 unit) capsule lisinopril 5 mg tablet 10 mg PO DAILY@0600 tab 09/03/19 05/17/20 05/16/20 History Pepcid 20 mg PO BID@0600,2300 05/17/20 05/17/20 05/16/20 History Zoloft 150 mg PO DAILY@0600 05/17/20 05/17/20 05/16/20 History estradiol 0.5 mg PO BID@0600,2300 05/17/20 05/17/20 05/16/20 History urzjoetxnblk-dxvlxzmy-qzxadc 1 tab PO DAILY@0600 05/17/20 05/17/20 05/16/20 History [Multivitamin 50 Plus] prednisone 2 mg PO BID@0600,2300 05/17/20 05/17/20 05/16/20 History tocilizumab [Actemra] 162 mg SUBCUT Q7D 05/17/20 05/17/20 05/11/20 History Allergies Allergy/AdvReac Type Severity Reaction Status Date / Time No Known Allergies Allergy Verified 02/24/20 11:33 Current Medications Current Medications Generic Name Dose Route Start Last Admin Trade Name Freq PRN Reason Stop Dose Admin Estradiol 0.5 mg 05/17/20 23:00 05/17/20 22:07 Estradiol 1 Mg Tablet PO 0.5 mg BID@0600,2300 FRANCISCO Administration Famotidine 20 mg 05/17/20 23:00 05/17/20 22:11 Famotidine 20 Mg Tablet PO 20 mg BID@0600,2300 FRANCISCO Administration Non-Formulary Medication 162 mg 05/17/20 17:39 05/17/20 17:53 Tocilizumab [Actemra] SUBCUT Not Given Q7D FRANCISCO Prednisone 2 mg 05/17/20 23:00 05/17/20 22:08 Prednisone 1 Mg Tablet PO 2 mg BID@0600,2300 FRANCISCO Administration PFSH Acute PFSH: Medical History (Updated 05/18/20 @ 07:25 by Von Wells MD) Asthma Chronic kidney disease, stage 3 Current chronic use of systemic steroids Depression Dermatitis Gastroesophageal reflux History of melanoma Right arm - removed 11/2013. Right forearm - removed 08/2011. 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 08/2011: Removed from right forearm. H/O oral surgery (~2013) Remove growth from mouth - benign. H/O: hysterectomy (12/11/07) LAVH/BSO. Dx: Uterine fibroids, Menorrhagia, Dysmenorrhea. Performed [place] Dr. Kelly at [facility] [place], [place]. History of colonoscopy (~03/2015) Dr. Stewart Ephraim teeth extracted (~2004) Family History Grandfather Stroke Maternal grandfather Mother Hyperlipidemia Hypertension Father Heart disease Grandmother Heart disease Paternal grandmother Diabetes Paternal grandmother Hypertension Maternal grandmother Denies family history of Anesthesia complication Bleeding disorder Social History Smoking and tobacco status: former smoker Quit status (tobacco): has quit using tobacco Year quit tobacco: 1990 Alcohol intake: current Alcohol intake frequency: holidays/special occasions only History of recent travel: No Vitals/I&O/Wt Last Vital Signs Temp 98.6 F 05/17/20 19:35 Pulse 100 05/17/20 22:35 Resp 17 05/17/20 22:35 BP 126/80 05/17/20 19:35 Pulse Ox 88 L 05/17/20 22:35 05/17/20 05/17/20 05/18/20 14:59 22:59 06:59 Intake Total 2049 1050 / 3100 Output Total 0 / 0 Balance 2049 1050 / 3100 Weight last 48 hrs Weight 104.326 kg Physical Exam Const: COMMON NORMALS: no acute distress and patient oriented x3 NUTRITIONAL APPEARANCE: obese HENMT: COMMON NORMALS: normocephalic and moist oral mucous membranes HEAD & SCALP: normocephalic Eye: COMMON NORMALS: Equal, round and reactive pupils present, EOMs intact bilaterally, conjunctivae normal and no scleral icterus CONJUNCTIVA: Yes conjunctivae normal PUPIL: Yes Equal, round and reactive pupils present Neck/C-Spine: COMMON NORMALS: no lymphadenopathy, supple, no meningeal signs, no JVD, Thyroid normal and No carotid bruits THYROID: Thyroid normal Lymph: LYMPHATIC: no lymphadenopathy noted Chest: COMMONS NORMALS: normal inspection of the chest and normal palpation of entire chest wall Resp: COMMON NORMALS: normal respiratory effort, No retractions, No use of accessory muscles and clear to auscultation bilaterally AUSCULTATION: clear to auscultation bilaterally Cardio: COMMON NORMALS: no JVD, regular rate, regular rhythm, S1 normal heart sound present, S2 normal heart sound present and No murmurs present (Cardio) RATE: regular rate RHYTHM: regular rhythm HEART SOUNDS: S1 normal heart sound present and S2 normal heart sound present GI: COMMON NORMALS: Normal to inspection, nondistended, normoactive bowel sounds present, Soft to palpation, non-tender, No hepatosplenomegaly present and no bruits PALPATION: Yes Soft to palpation and Yes No hepatosplenomegaly present : COMMON NORMALS: Yes no CVA tenderness BLADDER/KIDNEY EXAM: Yes no CVA tenderness Back/Pelvis: COMMON NORMALS: no CVA tenderness and thoraco-lumbar ROM normal Extremity: COMMON NORMALS: full ROM, capillary refill normal, no clubbing, cyanosis or edema and no pedal edema Neuro: COMMON NORMALS: patient oriented x3 and CN's II-XII intact bilaterally (Left facial paralysis) MENINGEAL SIGNS: Yes no meningeal signs SPEECH: abnormal speech Details: slurred MOTOR EXAM: Abnormal motor strength present (Power 3/5 in both left upper and left lower extremities) and Pronator motor function present pronator drift of left upper extremity Psych: COMMON NORMALS: mental status grossly normal, cooperative and normal affect Skin: COMMON NORMALS: no rashes or lesions noted, turgor normal and no jaundice GENERAL SKIN EXAM: no rashes or lesions noted and turgor normal A&P Assessment and plan (1) Acute CVA (cerebrovascular accident): Status: Acute (2) UTI (urinary tract infection): Status: Acute Qualifiers: Urinary tract infection type: site unspecified (3) Ureterolithiasis: Status: Acute (4) Status post cystoscopy with ureteral stent placement: Status: Acute (5) Sepsis: Status: Acute (6) Acute on chronic renal failure: Status: Acute Additional A&P Information Patient admitted to the ICU. She started on TPA protocol. Hemodynamic monitoring, blood chemistry, CBC and coagulation profile monitoring. tPA protocol. MRA of head and neck, MRI of the brain ordered to assess for major artery t hrombosis in which case patient will need thrombectomy. Consult to neurology-Dr. Durand. Discontinue oral Levaquin. Treat UTI with sepsis with IV cefepime and vancomycin. Aggressive IV hydration Monitor renal function Obtain blood cultures. Follow urine culture. Monitor CBC. Swallow evaluation. Speech therapy consult. PT consult. Consult Attestations Medical Necessity Statement: Patient with acute CVA but is post TPA. She will need continued hospitalization for further monitoring and management. She is expected to spend more than 2 midnights. Time Spent in Patient Care: 85 Critical Care Time: Critical care time spent managing acute CVA with TPA was about 54 minutes. Critical Care Time (min): 54 Coding Level of Care Code Acute Director Regulatory Compliance for g Fwd Exam Comprehensive Diagnoses Acute CVA (cerebrovascular accident) I63.9 UTI (urinary tract infection) N39.0 Urinary tract infection type: site unspecified Ureterolithiasis N20.1 Status post cystoscopy with ureteral stent placement Z96.0 Sepsis A41.9 Acute on chronic renal failure N17.9; N18.9
[2020-05-17 23:53] LABS: INR 1.03 (0.8-1.2)
--- NOTE | 2020-05-17 23:57 | MRR_ITS ---
PROCEDURE INFORMATION: Exam: MR Angiogram Head Without Contrast, Arteries Exam date and time: 05/17/2020 3:18 AM Age: 60 years old Clinical indication: Patient HX: Left side weakness with left sided facial drooping; Additional info: Acute CVA TECHNIQUE: Imaging protocol: MR angiogram head without contrast. Exam focused on the arteries. COMPARISON: CT head wo con* [id number] 05/17/2020 10:41 PM FINDINGS: ANTERIOR CIRCULATION: Right internal carotid artery: Intracranial segment is patent with no significant stenosis. No aneurysm. Right middle cerebral artery: No occlusion or significant stenosis. No aneurysm. Right anterior cerebral artery: No occlusion or significant stenosis. No aneurysm. Left internal carotid artery: Intracranial segment is patent with no significant stenosis. No aneurysm. Left middle cerebral artery: No occlusion or significant stenosis. No aneurysm. Left anterior cerebral artery: No occlusion or significant stenosis. No aneurysm. POSTERIOR CIRCULATION: Right vertebral artery: No occlusion or significant stenosis. No aneurysm. Left vertebral artery: No occlusion or significant stenosis. No aneurysm. Basilar artery: No occlusion or significant stenosis. No aneurysm. Right posterior cerebral artery: No occlusion or significant stenosis. No aneurysm. Left posterior cerebral artery: No occlusion or significant stenosis. No aneurysm. MR/MR angio head wo con [id number] IMPRESSION: No stenosis or occlusion.
[2020-05-18] VITALS (142 sets, daily range): BP systolic 64–196; BP diastolic 39–95; PULSE 78–115; RESP 14–96; TEMP 36.8–37.4; O2SAT 73–99
[2020-05-18] MEDS: atorvastatin 40 mg Tablet 20 MG PO (00:23)
[2020-05-18 00:53] LABS: Basophils # 0.1 10^3/uL (0.0-0.1); Basophils % 0.3 %; Hematocrit 37.1 % (37.0-47.0); Hemoglobin 12.1 g/dL (11.5-15.3); Lymphocytes # 0.3 10^3/uL (0.8-4.8); Mean Corpuscular HGB Conc 32.6 g/dL (30.0-36.0); Mean Corpuscular Hemoglobin 34.2 pg (28.0-34.0); Mean Corpuscular Volume 104.8 fL (81-99); Mean Platelet Volume 10.3 fL (7.4-10.4); Monocytes # 0.3 10^3/uL (0.2-0.9); Monocytes % 1.1 %; Neutrophils # 29.17 10^3/uL (1.8-7.7); Neutrophils % 96.9 %; Nucleated Red Blood Cells % 0 %; Platelet Count 201 10^3/cmm (130-400); Red Blood Count 3.54 10^6/uL (4.1-5.3); Red Cell Distribution Width 13.2 % (12.1-15.1); White Blood Count 30.1 10^3/uL (4.0-10.0)
[2020-05-18 01:08] LABS: Anion Gap 16.8 (5-19); Blood Urea Nitrogen 26 mg/dL (6-20); Calcium 8.4 mg/dL (8.5-10.5); Carbon Dioxide 21 mmol/L (22-29); Chloride 108 mmol/L (98-107); Glomerular Filtration Rate 20.7 mL/min (90-130); Glucose 164 mg/dL (65-115); LDL Cholesterol Direct 182 mg/dL (0-100); Osmolality Calculated 300 mOsm/kg (285-295); Potassium 4.8 mmol/L (3.5-5.1); Sodium 141 mmol/L (136-145)
--- NOTE | 2020-05-18 02:00 | PC.NURSE ---
Stroke symptoms Nurse arrived to patients room at approximately 2214 for assessment and rounding. While patient was answering health assessment questions, nurse noted left sided facial drooping. Patient denied having a history of facial asymmetry. She states, It feels funny when I talk. CAESAR, Vital signs as follows: Temp 97.9 BP 127/73 HR 120 O2 92% on 4L NC Neuro assessment performed. Upper extremity trucker hand equal, but drifting present in LUE. Unable to perform hbzzxz-am-[id number] test with left arm. Able to perform LLE heel to mora maneuver, but cannot hold LLE up against gravity. A&O x 3, speech slurred. Last known well time 2034. Notified Dr. Wells of change in patient condition at 2222. Stroke alert called at 2222. Patient taken to CT per stroke alert protocol.
[2020-05-18] MEDS: cefepime 1,000 MG in sodium chloride 0.9% (plus) 50 ML 100 MG IV ×2 (02:47→13:54)
[2020-05-18] MEDS: sodium chloride 0.9% 1,000 ML 999 ML IV (02:48)
[2020-05-18] MEDS: sodium chloride 0.9% 1,000 ML 125 ML IV ×3 (02:48→21:57)
[2020-05-18] MEDS: vancomycin 1,000 MG in sodium chloride 0.9% 250 ML 250 MG IV (02:49)
--- NOTE | 2020-05-18 04:26 | PC.NURSE ---
0300 Pt taken by ambulance to MRI Dr. Wells aware VS stable prior to MRI 0355 Pt c/o SOB unable to remain in MRI tube. Reassured Pt offered support Pt declined with to return to ICU. Refused to continue testing. 0400 Pt taken by ambulance back to room ICU 9 placed on bedside monitor VSS no changes in conditon
[2020-05-18 04:46] LABS: Basophils # 0.1 10^3/uL (0.0-0.1); Basophils % 0.3 %; Hematocrit 37.8 % (37.0-47.0); Hemoglobin 12.1 g/dL (11.5-15.3); Lymphocytes # 0.4 10^3/uL (0.8-4.8); Lymphocytes % 1.2 %; Mean Corpuscular Hemoglobin 34.1 pg (28.0-34.0); Mean Corpuscular Volume 106.5 fL (81-99); Mean Platelet Volume 10.4 fL (7.4-10.4); Monocytes # 0.6 10^3/uL (0.2-0.9); Monocytes % 1.8 %; Neutrophils % 96.1 %; Nucleated Red Blood Cells % 0 %; Platelet Count 200 10^3/cmm (130-400); Red Blood Count 3.55 10^6/uL (4.1-5.3); Red Cell Distribution Width 13.2 % (12.1-15.1)
[2020-05-18 05:17] LABS: Anion Gap 18.7 (5-19); Blood Urea Nitrogen 28 mg/dL (6-20); Carbon Dioxide 21 mmol/L (22-29); Chloride 107 mmol/L (98-107); Glomerular Filtration Rate 21.8 mL/min (90-130); Potassium 4.7 mmol/L (3.5-5.1); Sodium 142 mmol/L (136-145)
[2020-05-18 05:18] LABS: Calcium 8.6 mg/dL (8.5-10.5); Chol HDL Ratio 3.79 mg/dL (0.0-4.40); Cholesterol 265 mg/dL (0-200); Glucose 150 mg/dL (65-115); HDL Cholesterol 70 mg/dL (60-100); LDL Cholesterol Calculated 123 mg/dL (50-129); LDL HDL Ratio 1.76 RATIO (0.00-3.22); Osmolality Calculated 302 mOsm/kg (285-295); Triglycerides 362 mg/dL (0-150)
--- NOTE | 2020-05-18 06:00 | USCV_ITS ---
Zeina Sawnat Age: 60 Gender: F : 1960 Exam Date: 05/18/2020 07:26 Ordering Phys: Von Wells MD Technologist: Alivia Ayala Exam Location: [facility] [place] Indication: CVA BP: 150 / 71 HR: 80 Rhythm: Sinus Technical Quality: Adequate MEASUREMENTS (Male / Female) Normal Values 2D ECHO LV Diastolic Diameter PLAX 4.6 cm 4.2 - 5.9 / 3.9 - 5.3 cm LV Systolic Diameter PLAX 2.7 cm LV Chamber Size 3.0 cm IVS Diastolic Thickness 1.2 cm 0.6 - 1.0 / 0.6 - 0.9 cm IVS Systolic Thickness 1.9 cm LVPW Diastolic Thickness 1.5 cm 0.6 - 1.0 / 0.6 - 0.9 cm LVPW Systolic Thickness 1.3 cm RV Chamber Size 2.7 cm LVOT Diameter 2.1 cm LV Ejection Fraction 2D Teich 72.9 % LV Ejection Fraction MOD 2C 54.6 % LV Ejection Fraction 2C AL 56.7 % LA Diameter 3.2 cm LA Width 3.5 cm LA Height 4.5 cm RA Width 3.3 cm RA Height 4.2 cm Aorta at Sinotubular Diameter 2.9 cm M-MODE LV Diastolic Diameter MM 4.4 cm 4.2 - 5.9 / 3.9 - 5.3 cm LV Systolic Diameter MM 2.8 cm LV Ejection Fraction MM Teich 65.3 % IVS Diastolic Thickness MM 1.0 cm 0.6 - 1.0 / 0.6 - 0.9 cm IVS Systolic Thickness MM 1.6 cm LVPW Diastolic Thickness MM 1.1 cm 0.6 - 1.0 / 0.6 - 0.9 cm LVPW Systolic Thickness MM 1.7 cm RV Diastolic Diameter MM 1.4 cm Aortic Annulus Diameter 3.2 cm LA Ao Ratio MM 1.2 MV E Point Septal Separation 0.5 cm DOPPLER AV Peak Velocity 176.0 cm/s LVOT Peak Velocity 89.0 cm/s AV Area Cont Eq vti 1.9 cm squared AV Area Cont Eq pk 1.7 cm squared MV Area PHT 6.5 cm squared Mitral E to A Ratio 1.3 MV E' Velocity 56.5 cm/s Mitral E to MV E' Ratio 8.7 Mitral E to LV E' Lateral Ratio 8.2 Mitral E to LV E' Septal Ratio 9.2 TR Peak Velocity 247.9 cm/s TR Peak Gradient 24.6 mmHg TR Mean Velocity 185.9 cm/s TR Mean Gradient 15.9 mmHg TR Velocity Time Integral 81.5 cm TV Peak E Velocity 75.0 cm/s Right Atrial Pressure 3.0 mmHg Pulmonary Artery Systolic Pressu 27.6 mmHg PV Peak Velocity 72.0 cm/s RV Acceleration Time 0.2 s RV Ejection Time 0.4 s RV AcT/ET 0.5 FINDINGS Left Ventricle Normal left ventricular size and systolic function, EF 57 %. No regional wall motion abnormalities. Right Ventricle The right ventricle is normal in size and function. Right Atrium The right atrium is normal in size. Left Atrium The left atrium is normal in size. Mitral Valve Trace mitral valve regurgitation. Aortic Valve No gross abnormalities noted. Tricuspid Valve Moderate tricuspid valve regurgitation. Pulmonic Valve No gross abnormalities noted Pericardium Normal pericardium without effusion. Aorta Normal ascending aorta dimension. CONCLUSIONS Normal left ventricular size and systolic function, EF 57 %. No regional wall motion abnormalities. Moderate tricuspid valve regurgitation. Trace mitral valve regurgitation. There is no pericardial effusion. There are no intracardiac masses. No previous study is available for comparison. Dr Vinicisu Diaz MD FAC (Electronically Signed) Final Date: 18 May 2020 19:16 S
--- NOTE | 2020-05-18 06:00 | USCV_ITS ---
Zeina Sawant Age: 60 Gender: F : 1960 Exam Date: 05/18/2020 07:03 Ordering Phys: Von Wells MD Technologist: Alivia Ayala [place] [facility] [place]: ACUTE CVA Risk Factors: Unknown Previous Vascular Surgery: None Right Brachial BP: / Left Brachial BP: / Right Left Velocity (cm/s) Spectral Plaque Velocity (cm/s) Spectral Plaque Syst/Diast Broadening Syst/Diast Broadening 90.40/ 22.10 Prox CCA 91.00 / 26.80 42.10/ 13.40 Mid CCA 89.90 / 31.00 85.50/ 23.00 Distal CCA 92.10 / 32.10 100.60/30.00 Prox ICA 87.80 / 27.80 91.00/ 25.70 Mid ICA 88.85 / 30.00 123.10/43.90 Distal ICA 82.40 / 36.40 64.40 ECA 63.20 2.92 ICA/CCA 0.98 Antegrade Vertebral Antegrade 66.40/ 25.70 cm/s 61.00/ 18.20 cm/s Tri Subclavian Bi 109.2 174.6 0 0 CONCLUSIONS Right ICA stenosis <50%. Mild atheromatous plaque right carotid bulb/ICA. Left ICA stenosis <50%. Mild atheromatous plaque left carotid bulb/ICA. Normal antegrade Doppler flow noted in the right vertebral artery. Normal antegrade Doppler flow noted in the left vertebral artery. Kodi Arredondo MD (Electronically Signed) Final Date: 18 May 2020 09:47 S
[2020-05-18 06:14] LABS: White Blood Count 31.2 10^3/uL (4.0-10.0)
[2020-05-18 06:53] LABS: Estmated Average Glucose 114; Hemoglobin A1C 5.6 % (4.0-6.0)
--- NOTE | 2020-05-18 07:03 | PM.PN ---
Subjective Subjective: Interval history: Postoperative day #1 emergency stent placement for obstructive pyelonephritis Events of the night reviewed. Clinical evidence of acute CVA. Received TPA. Doing better this morning. Alert and oriented. Reviewed findings intraoperatively with her this morning. She expressed good understanding. Neurology consultation pending. Abdomen soft. This morning: WBC 31.2. Severe spike following admission white count 11.3 yesterday. Creatinine 2.3. Increased from 1.7 yesterday. We will need to watch creatinine closely. Would expect significant decline after stent placement and solitary kidney. Most likely represents acute kidney injury. We will consider follow-up ultrasound to confirm adequate drainage of the right kidney with stent placed yesterday if continues to rise. Vitals/I&O/Wt Last Vital Signs Temp 98.8 F 05/18/20 02:58 Pulse 89 05/18/20 06:00 Resp 16 05/18/20 06:00 BP 138/71 05/18/20 06:00 Pulse Ox 97 05/18/20 06:00 05/17/20 05/18/20 05/18/20 22:59 06:59 14:59 Intake Total 1050 / 3100 1382.35 / 4482.35 Output Total 0 / 0 625 / 625 Balance 1050 / 3100 757.35 / 3857.35 Weight last 48 hrs Weight 105 lb Weight 230 lb Physical Exam Const: COMMON NORMALS: no acute distress and alert GENERAL APPEARANCE: well kempt and well developed Resp: COMMON NORMALS: normal respiratory effort EFFORT & INSPECTION: No labored and No Actively coughing Neuro: SENSORIUM/ORIENTATION: Yes alert OTHER: Still with some facial droop. Improved though per nursing staff Psych: COMMON NORMALS: mental status grossly normal, Normal thought process present and cooperative APPEARANCE: Yes well kempt ATTITUDE: Yes calm and Yes engaged THOUGHT PROCESS: Normal thought process present Data : 05/18/20 04:13 05/18/20 04:13 A&P Assessment and plan (1) Status post cystoscopy with ureteral stent placement: Went well. Surprising creatinine has increased. May be reflective of acute kidney injury associated with obstructive pyelonephritis. We will need to watch closely. Consider repeat ultrasound if continues to increase to confirm adequate drainage via stent. Status: Acute (2) Acute CVA (cerebrovascular accident): Status: Acute (3) Sepsis: Large spike in white count postoperatively. Status: Acute (4) Current chronic use of systemic steroids: Status: Acute Attestations Medical Necessity Statement*: Critically ill in ICU Coding Level of Care Code Acute Horizontal Boring Mill Operator for [facility] Nyla Diagnoses Status post cystoscopy with ureteral stent placement Z96.0 Acute CVA (cerebrovascular accident) I63.9 Sepsis A41.9 Current chronic use of systemic steroids Z79.52
--- NOTE | 2020-05-18 07:14 | PM.MISC ---
Miscellaneous Note Purpose of Documentation: Patient reassessed after TPA administration. No loss of consciousness. Patient denies any headache, no visual disturbance, no nausea or vomiting. Patient stable her left arm weakness is improving. MRA of head and neck and MRI of the brain ordered. Patient only do the MRA of the head. She could not complete MRI of the brain because of claustrophobia. Patient has elevated creatinine. She has only one kidney and considered not a candidate for CTA head and neck due to risk of worsening renal insufficiency. MRA of head shows no significant arterial occlusion. NIH score: 6/10. Vitals stable Pupils equal and reactive to light. EOMI Left facial droop. Plan: Neurology consult placed. Continue cardiac monitoring. Will need MRI of the brain with some sedation.
--- NOTE | 2020-05-18 07:26 | PC.OT ---
OT EVALUATION ORDERS RECEIVED. HOLD UNTIL 05/19 SECONDARY TO TPA ADMINISTRATION.
--- NOTE | 2020-05-18 09:13 | P.PN_ITS ---
Subjective Subjective: Interval history: Hospital course, labs and vitals noted. Postoperative day #1 emergency stent placement for obstructive pyelonephritis Events of the night reviewed with clinical evidence of acute CVA, post TPA. Today morning examination lying comfortably in bed, AO x3, no slurred speech, able to drink well with full liquid diet. Blood pressures have remained stable. NIH score 4 Vitals/I&O/Wt Last Vital Signs Temp 98.2 F 05/18/20 08:00 Pulse 89 05/18/20 08:00 Resp 19 H 05/18/20 08:00 BP 132/93 05/18/20 08:00 Pulse Ox 97 05/18/20 08:00 05/17/20 05/18/20 05/18/20 22:59 06:59 14:59 Intake Total 1050 / 3100 1382.35 / 4482.35 Output Total 0 / 0 625 / 625 Balance 1050 / 3100 757.35 / 3857.35 Weight last 48 hrs Weight 47.627 kg Weight 104.326 kg Physical Exam Narrative: EXAM NARRATIVE: General: No acute distress, AO x3, no pallor no icterus HEENT: PERRLA, pupils bilaterally equal and reactive, 4 x 5 in left Chest: Normal vesicular breath sounds, no added sounds, equal good air entry elida aterally CVS: S1-S2 regular, no murmurs, no tachycardia, no gallops, no rubs Abdomen: Soft, nontender, no organomegaly, bowel sounds present Neuro: No focal deficits, no facial deformity, AO x3, power upper limb and lower limb, dysarthria present, NIH 4 Data : 05/18/20 04:13 05/18/20 04:13 Micro: Microbiology 05/17/20 11:57 Urine Culture - Preliminary Urine,Clean Catch Gram Negative Rods A&P Assessment and plan (1) Acute CVA (cerebrovascular accident): Status: Acute (2) UTI (urinary tract infection): Status: Acute Qualifiers: Urinary tract infection type: site unspecified (3) Ureterolithiasis: Status: Acute (4) Status post cystoscopy with ureteral stent placement: Status: Acute (5) Sepsis: Status: Acute (6) Acute on chronic renal failure: Status: Acute Additional A&P Information Acute CVA post TPA: Episode of rapid rate. Physical therapy, Occupational Therapy. Advance diet. Check lipid panel, A1c. Start patient on full dose high intensity statin, aspirin 81 mg daily. MRI results appreciated. Carotid Doppler results appreciated. CT head and neck could not be done because of ERIC on single kidney. Goal blood pressures between systolic 140 to 160 mmHg. Sepsis secondary to UTI/urolithiasis post cystoscopy and ureteral stent placement: Postoperative day 1. Patient has persistent leukocytosis with worsening of creatinine today. Case discussed with Dr. Elder will do abdominal ultrasound to confirm stent placement. Monitor urine output. Check blood culture, procalcitonin. Continue patient on vancomycin and cefepime both renally dosed. Continue other chronic medications including prednisone 2 mg twice daily, sertraline. Full code. Soft mechanical cardiac diet. Hold off on any pharmacological DVT prophylaxis because of TPA last night. Patient continues to do well and remained stable with plan to transfer to floor tomorrow. Attestations Medical Necessity Statement*: Patient requires further hospitalization for management of acute CVA post TPA, sepsis secondary to complicated UTI and post ureteral stent replacement Time Spent in Patient Care: Greater than 35 minutes (>than 50% of time spent in counselling and/or direct pt care on unit) . Coding Level of Care Code Acute Red Hat Linux Administrator for Chg Fwd Diagnoses Acute CVA (cerebrovascular accident) I63.9 UTI (urinary tract infection) N39.0 Urinary tract infection type: site unspecified Ureterolithiasis N20.1 Status post cystoscopy with ureteral stent placement Z96.0 Sepsis A41.9 Acute on chronic renal failure N17.9; N18.9
--- NOTE | 2020-05-18 09:25 | PC.CHAP ---
Pastoral Care Encounter/Spiritual Assessment Type of Contact [] Declined manager android visit [] Patient/Family/Request visit [] Outpatient visit [] Follow-up visit [] Physician referral [] Code/Alert [x] Routine visit [] Staff referral [] Actively dying [] Patient sleeping [] Family support [] [] Out of room [] Palliative care [] [] Receiving care in room [] Pre-surgical visit [] Trauma [] Long length of stay [x] ICU visit [] Other: Relational/Emotional Strength [] Patient feels connected with others/family/visitors/staff [] Distress [] Loneliness/isolation [] Abandonment Spirituality of Patient [] Person of Gisell [] Attends Mu-Ism of their Gisell [] Believes in Prayer [] Reads Bible or Buddhist materials [] There are Spiritual issues to be addressed Quarantine Inspector Interventions [x] Prayer [] Active listening [] Non-anxious presence [] Spiritual/emotional support [] Crisis/trauma care [] Spiritual counseling [] Bereavement support [] Provided bereavement packet [] Provided Bible/devotional materials [] Provided toy/stuffed animal, coloring book to patient or family member [] Provided Communion [] Anointing/[place] [] Salvation [x] Completed spiritual assessment [] Other: Impact on Illness or Injury [] Angry [] Fearful [] Anxious [] Often cries [] Exhaustion [] Unable to work [] Unable to attend zoroastrian [] Unable to walk/stand [] Unable to read [] Unable to drive [] Unable to eat/drink [] Unable to sleep [] Unable to be with family [] Patient intubated [] Other: Summary Time spent with patient
--- NOTE | 2020-05-18 09:25 | PM.PN ---
Subjective Subjective: Interval history: 60-year-old woman with hypertension came with a kidney stone. She was last known normal around 8:30 PM. She received TPA for an NIH stroke scale score of 8. Presumably there is a note from [facility] neurology, it may be pending. This morning the patient is aware that something is wrong because her tongue feels thick. Vitals/I&O/Wt Last Vital Signs Temp 98.2 F 05/18/20 08:00 Pulse 89 05/18/20 08:00 Resp 19 H 05/18/20 08:00 BP 132/93 05/18/20 08:00 Pulse Ox 97 05/18/20 08:00 05/17/20 05/18/20 05/18/20 22:59 06:59 14:59 Intake Total 1050 / 3100 1382.35 / 4482.35 Output Total 0 / 0 625 / 625 Balance 1050 / 3100 757.35 / 3857.35 Weight last 48 hrs Weight 105 lb Weight 230 lb Physical Exam Narrative: EXAM NARRATIVE: LEVEL OF CONCIOUSNESS 0 0 = alert 1= drowsy 2 = stuporous 3 = coma LOC Questions, what is the Month? What is your age? 0 0 = both correct 1 = 1 correct 2 = neither correct] LOC Commands Close Eyes, Make Fist 0 0 = both correct 1 = one correct 2 = neither correct GAZE 0 0 = normal 1 = partial horizontal gaze paresis 2 = forced horizontal gaze deviation VISUAL HILL 0 0 = Normal 1 = partial hemianopia 2 = complete hemianopia 3 = bilateral hemianopia 4 = mind from stroke FACE 1 0 = normal 1 = minor 2 = partial upper motor neuron 3 = complete MOTOR ARM RUE 0 0 = no drift 1 = drift 2 = some effort against gravity 3 = no effort against gravity 4 = no movement LUE 1 0 = no drift] 1 = drift 2 = some effort against gravity 3 = no effort against gravity 4 = no movement MOTOR LEG RLE 0 0 = no drift 1 = drift 2 = some effort against gravity 3 = no effort against gravity 4 = no movement LLE 1 0 = no drift 1 = drift 2 = some effort against gravity 3 = no effort against gravity 4 = no movement LIMB ATAXIA 0 0 = absent 1 = unilateral in one limb 2 = unilateral in 2 limbs bilateral SENSORY 0 0= Normal 1=Mild to mod 3= severe APHASIA 0 0 = normal 1 = mild/moderate aphasia 2 = Severe Aphasia 3 = mute; global aphasia DYSARTHRIA 1 0 = normal 1 = mild to moderate 2 = near unintelligible NEGLECT 1 (visual) 0 = normal 1 = one modality 2 = sensory and visual TOTAL = 4 Data : 05/18/20 04:13 05/18/20 04:13 Micro: Microbiology 05/17/20 11:57 Urine Culture - Preliminary Urine,Clean Catch Gram Negative Rods CT Head: My impression: CT head was normal. MR angiogram shows no large vessel stenosis or occlusion A&P Assessment and plan (1) Temporal giant cell arteritis: She is on chronic steroid therapy with a diagnosis of temporal arteritis. She went to see Dr. Barba in November 2017 complaining of a new headache in the left parieto-occipital region with scalp tenderness. ESR was 102. He started her on prednisone and ordered a temporal artery biopsy. A month later she was seen by Dr. Madison who was concerned that she had been on prednisone 60 mg a day for a month and he doubted that a biopsy would be productive.. She has been on gradual steroid taper for the last 2-1/2 years. Status: Acute (2) Acute right arterial ischemic stroke, middle cerebral artery (MCA): 60-year-old woman with risk factors including hypertension and chronic immunosuppression who presented with a right middle cerebral artery stroke complicating stent for nephrolithiasis. She has only one kidney and is experiencing some acute kidney injury. She received TPA in a timely fashion after onset of symptoms and her prognosis is good. She still has mild left-sided weakness and will need evaluation by physical therapy determine whether she can walk. Bedside swallowing evaluation was done by sitting the patient up to 90 degrees and administering 10 mL of water which she managed well without aspiration. Formal swallowing evaluation may be done by speech later but I told Dr. Avila I think it is okay to feed her breakfast. Plan on discharging her on aspirin and Lipitor and she should be seen in neurology within 2 weeks. Status: Acute Attestations Medical Necessity Statement*: Acute stroke in the right middle cerebral artery distribution with persistent left hemiparesis Time Spent in Patient Care: 16 - 35 minutes Coding Level of Care Code Acute Etl Manager for [facility] Nyla Diagnoses Temporal giant cell arteritis M31.6 Acute right arterial ischemic stroke, middle cerebral artery (MCA) I63.511
[2020-05-18 11:59] LABS: Procalcitonin 6.07 ng/mL (0-0.5)
[2020-05-18 12:19] LABS: Iron 32 ug/dL (37-145); Percent Saturation 10.6 % (20-50); Total Iron Binding Capacity 301 mcg/dl; Unsaturated Iron Binding 269 ug/dL (112-347)
[2020-05-18 12:38] LABS: Thyroid Stimulating Hormone 0.76 uIU/mL (0.27-4.20)
--- NOTE | 2020-05-18 14:00 | US_ITS ---
NOTE: Report was unsigned for reason: Order was edited. Original Signature date and time was: 05/18/20 @ 1624 WS: [id number] ULTRASOUND RENAL TECHNIQUE: Ultrasound examination of both kidneys. CLINICAL INFORMATION: post uretral stent, ? stent placement COMPARISON: None. FINDINGS: RIGHT: Right kidney is normal in size and appearance. Echogenicity: Normal. Cortical thickness: 1.4 cm; Normal. Hydronephrosis: None. Perinephric fluid: None. Right kidney measures: 12.3 cm x 4.4 cm x 5.5 cm. LEFT: Left nephrectomy Normal visualized aorta. Patient voided just prior to procedure. [facility] renal BI with PV bladder IMPRESSION: 1. No hydronephrosis within the right kidney. 2. Left kidney has been removed. 3. Patient voided just prior to procedure. Bladder is decompressed.
--- NOTE | 2020-05-18 20:31 | PC.NURSE ---
Received report from off going nurse. Pt's plan of care reviewed. Pt is resting in bed. Respirations are even and unlabored. No s/sx of distress noted. Pt is alert and oriented and able to make her own decisions. Pt denies any pains or concerns at this time. Left facial droop noted with left side weakness. Pt denies any changes in her mental or physical status. Bed in lowest and locked position, call light and water within reach, x's 2 rails up. Will continue to monitor pt.
[2020-05-18] MEDS: atorvastatin 40 mg Tablet PO (21:21)
[2020-05-18] MEDS: estradiol 1 mg Tablet 0.5 MG PO (21:56)
[2020-05-18] MEDS: famotidine 20 mg Tablet PO (22:00)
[2020-05-19] VITALS (51 sets, daily range): BP systolic 133–203; BP diastolic 74–107; PULSE 72–107; RESP 13–90; TEMP 36.4–37.1; O2SAT 87–96
[2020-05-19] MEDS: cefepime 1,000 MG in sodium chloride 0.9% (plus) 50 ML 100 MG IV (01:47)
[2020-05-19] MEDS: vancomycin 1,000 MG in sodium chloride 0.9% 250 ML 250 MG IV (02:37)
[2020-05-19 03:58] LABS: Basophils % 0.2 %; Eosinophils # 0.1 10^3/uL (0.0-0.8); Eosinophils % 0.7 %; Hematocrit 33.4 % (37.0-47.0); Hemoglobin 10.5 g/dL (11.5-15.3); Lymphocytes # 1.7 10^3/uL (0.8-4.8); Lymphocytes % 12.6 %; Mean Corpuscular HGB Conc 31.4 g/dL (30.0-36.0); Mean Corpuscular Hemoglobin 33.3 pg (28.0-34.0); Mean Platelet Volume 10.6 fL (7.4-10.4); Monocytes # 0.8 10^3/uL (0.2-0.9); Monocytes % 6.3 %; Neutrophils # 10.48 10^3/uL (1.8-7.7); Neutrophils % 79.9 %; Nucleated Red Blood Cells % 0 %; Platelet Count 166 10^3/cmm (130-400); Red Blood Count 3.15 10^6/uL (4.1-5.3); Red Cell Distribution Width 13.4 % (12.1-15.1); White Blood Count 13.1 10^3/uL (4.0-10.0)
[2020-05-19 04:27] LABS: Alanine Aminotransferase 17 U/L (0-33); Albumin Level 3.4 g/dL (3.5-5.2); Alkaline Phosphatase 69 IU/L (35-105); Anion Gap 12.2 (5-19); Aspartate Amino Transferase 21 U/L (0-32); Blood Urea Nitrogen 22 mg/dL (6-20); Calcium 8.1 mg/dL (8.5-10.5); Carbon Dioxide 23 mmol/L (22-29); Chloride 112 mmol/L (98-107); Globulin 2.5 g/dL (1.3-4.6); Glomerular Filtration Rate 38.6 mL/min (90-130); Glucose 105 mg/dL (65-115); Osmolality Calculated 300 mOsm/kg (285-295); Potassium 4.2 mmol/L (3.5-5.1); Sodium 143 mmol/L (136-145); Total Bilirubin 0.2 mg/dL (0.15-1.2); Total Protein 5.9 g/dL (6.6-8.7)
[2020-05-19] MEDS: estradiol 1 mg Tablet 0.5 MG PO ×2 (06:30→23:30)
[2020-05-19] MEDS: predniSONE 1 mg Tablet 2 MG PO ×3 (06:31→23:30)
[2020-05-19] MEDS: fluticasone nasal spray 16gm Btl 2 SPRAY INTRANASAL (06:31)
[2020-05-19] MEDS: cetirizine 10 mg Tablet PO (06:31)
[2020-05-19] MEDS: famotidine 20 mg Tablet PO ×2 (06:32→23:30)
[2020-05-19] MEDS: sertraline 100 mg Tablet 150 MG PO (06:33)
[2020-05-19] MEDS: ondansetron 2 mg/ML SDV 2 mL 4 MG IVP (08:12)
[2020-05-19] MEDS: sodium chloride 0.9% 1,000 ML 125 ML IV (08:13)
[2020-05-19] MEDS: amlodipine 10 mg Tablet PO (08:57)
[2020-05-19] MEDS: metoprolol tartrate 25 mg Tablet PO ×2 (08:57→21:53)
[2020-05-19] MEDS: aspirin 81 mg EC Tablet PO (08:57)
--- NOTE | 2020-05-19 08:58 | PC.OT ---
OT EVALUATION ORDERS RECEIVED. OT SCREEN COMPLETED. PATIENT DEMONSTRATES NO DEFICITS IN ADL/MRADL, UB MX STRENGTH IS 4/5 B. NO FURTHER SKILLED OT REQUIRED.
--- NOTE | 2020-05-19 09:35 | PC.CHAP ---
Pastoral Care Encounter/Spiritual Assessment Type of Contact [] Declined sap bw developer visit [] Patient/Family/Request visit [] Outpatient visit [] Follow-up visit [] Physician referral [] Code/Alert [x] Routine visit [] Staff referral [] Actively dying [] Patient sleeping [] Family support [] [] Out of room [] Palliative care [] [] Receiving care in room [] Pre-surgical visit [] Trauma [] Long length of stay [x] ICU visit [x] Other: patient of the JW gisell... prayer not needed Relational/Emotional Strength [] Patient feels connected with others/family/visitors/staff [] Distress [] Loneliness/isolation [] Abandonment Spirituality of Patient [] Person of Gisell [] Attends Uatsdin of their [place] [] Believes in Prayer [] Reads Bible or Catholic materials [] There are Spiritual issues to be addressed Supervisor Typesetting Interventions [] Prayer [] Active listening [] Non-anxious presence [] Spiritual/emotional support [] Crisis/trauma care [] Spiritual counseling [] Bereavement support [] Provided bereavement packet [] Provided Bible/devotional materials [] Provided toy/stuffed animal, coloring book to patient or family member [] Provided Communion [] Anointing/[place] [] Salvation [x] Completed spiritual assessment [] Other: Impact on Illness or Injury [] Angry [] Fearful [] Anxious [] Often cries [] Exhaustion [] Unable to work [] Unable to attend hindu [] Unable to walk/stand [] Unable to read [] Unable to drive [] Unable to eat/drink [] Unable to sleep [] Unable to be with family [] Patient intubated [] Other: Summary Time spent with patient
--- NOTE | 2020-05-19 10:48 | PC.NURSE ---
Report called to DWAYNE Saavedra on [facility]. Pt to be transferred by wheelchair to [facility].
--- NOTE | 2020-05-19 12:46 | PM.PN ---
Subjective Subjective: Interval history: Urology follow-up: Postoperative day #2 emergency right ureteral stent placement and solitary kidney with obstructing stone and evidence of UTI. Ultrasound yesterday in the face of rising creatinine showed no evidence of hydronephrosis implying stent appropriately positioned. Creatinine this morning has responded as well with 1.4 down from 2.3. White count has dramatically reduced to 13.1. No additional complaints. She is feeling better. Reviewed and consider the above information for this visit Dr. Durand's information regarding stroke. Vitals/I&O/Wt Last Vital Signs Temp 98.3 F 05/19/20 09:15 Pulse 88 05/19/20 11:00 Resp 16 05/19/20 11:00 BP 170/94 05/19/20 09:15 Pulse Ox 94 05/19/20 09:41 05/18/20 05/19/20 05/19/20 22:59 06:59 14:59 Intake Total 1290 / 2890 1300 / 4190 340 / 340 Output Total 300 / 550 1250 / 1800 Balance 990 / 2340 50 / 2390 340 / 340 Weight last 48 hrs Weight 105 lb Physical Exam Const: COMMON NORMALS: no acute distress, alert and well nourished GENERAL APPEARANCE: well kempt and well developed ORIENTATION/CONSCIOUSNESS: not confused HENMT: COMMON NORMALS: normocephalic and atraumatic HEAD & SCALP: normocephalic and atraumatic Eye: COMMON NORMALS: conjunctivae normal and no scleral icterus CONJUNCTIVA: Yes conjunctivae normal Resp: COMMON NORMALS: normal respiratory effort EFFORT & INSPECTION: No labored and No Actively coughing Neuro: SENSORIUM/ORIENTATION: Yes alert Psych: COMMON NORMALS: mental status grossly normal APPEARANCE: Yes grossly normal and Yes well kempt ATTITUDE: Yes calm and Yes engaged Data : 05/19/20 03:22 05/19/20 03:22 Micro: Microbiology 05/17/20 11:57 Urine Culture - Final Urine,Clean Catch Proteus mirabilis 05/18/20 12:41 Blood Culture - Preliminary Blood SPECIMEN COLLECTED 05/18/20 12:37 Blood Culture - Preliminary Blood SPECIMEN COLLECTED A&P Assessment and plan (1) UTI (urinary tract infection): Status: Acute Qualifiers: Urinary tract infection type: site unspecified (2) Ureterolithiasis: Status: Acute Attestations Medical Necessity Statement*: see attending Coding Level of Care Code Acute Catapult And Arresting Gear Officer for Chg Fwd Diagnoses UTI (urinary tract infection) N39.0 Urinary tract infection type: site unspecified Ureterolithiasis N20.1
--- NOTE | 2020-05-19 14:20 | PM.PN ---
Subjective Subjective: Interval history: No complaints overnight. Today morning patient seen sitting in chair having her breakfast. Patient has remained hemodynamically stable afebrile overnight. Urine output documented 2200. Patient states she was up most of the night and she had to urinate every 45 minutes. Denies any dysuria. Working well with physical therapy. CVA continues to improve. As per the nurse patient seemed depressed yesterday and was tearful. On review of most today patient seems a lot more jovial though has mild flat affect. She denies any depression, homicidal or suicidal ideations. Vitals/I&O/Wt Last Vital Signs Temp 98.1 F 05/19/20 12:00 Pulse 80 05/19/20 12:00 Resp 18 05/19/20 12:00 BP 158/87 05/19/20 12:00 Pulse Ox 90 05/19/20 12:00 05/18/20 05/19/20 05/19/20 22:59 06:59 14:59 Intake Total 1290 / 2890 1300 / 4190 340 / 340 Output Total 300 / 550 1250 / 1800 Balance 990 / 2340 50 / 2390 340 / 340 Weight last 48 hrs Weight 47.627 kg Physical Exam Narrative: EXAM NARRATIVE: General: No acute distress, AO x3, no pallor no icterus HEENT: PERRLA, pupils bilaterally equal and reactive, 4 x 5 in left Chest: Normal vesicular breath sounds, no added sounds, equal good air entry bilaterally CVS: S1-S2 regular, no murmurs, no tachycardia, no gallops, no rubs Abdomen: Soft, nontender, no organomegaly, bowel sounds present Neuro: No focal deficits, no facial deformity, AO x3, power upper limb and lower limb, dysarthria present, NIH 4 Data : 05/19/20 03:22 05/19/20 03:22 Micro: Microbiology 05/18/20 12:41 Blood Culture - Preliminary Blood NEGATIVE TO DATE 05/18/20 12:37 Blood Culture - Preliminary Blood NEGATIVE TO DATE 05/17/20 11:57 Urine Culture - Final Urine,Clean Catch Proteus mirabilis A&P Assessment and plan (1) Acute CVA (cerebrovascular accident): Status: Acute (2) UTI (urinary tract infection): Status: Acute Qualifiers: Urinary tract infection type: site unspecified (3) Ureterolithiasis: Status: Acute (4) Status post cystoscopy with ureteral stent placement: Status: Acute (5) Sepsis: Status: Acute (6) Acute on chronic renal failure: Status: Acute Additional A&P Information Acute CVA post TPA: Episode of rapid rate. Physical therapy, Occupational Therapy. Continue with statin, aspirin. MRI, carotid Doppler, echocardiogram results appreciated. Patient to follow-up with Dr. Durand in her office in 2 weeks post discharge. Sepsis secondary to UTI/urolithiasis post cystoscopy and ureteral stent placement: Postoperative day 2. Leukocytosis and creatinine improving. Renal ultrasound results appreciated. Urine cultures growing Proteus mirabilis. Stop vancomycin and cefepime and changed to oral ciprofloxacin 500 twice daily as per the culture sensitivities. Patient will most likely need a treatment for overall 10 days. Hypertension: Goal blood pressure of less than 140/90 mmHg. Stop lisinopril. Start patient on amlodipine 10 mg and metoprolol 25 twice daily. Given the solitary kidney it would be best if COLETTE inhibitors are avoided in the patient. Continue other chronic medications including prednisone 2 mg twice daily, sertraline. Full code. Soft mechanical cardiac diet. Hold off on any pharmacological DVT prophylaxis because of TPA last night. Transfer to floor. Discharge planning: If patient continues to improve can plan to discharge tomorrow on oral antibiotics for 10 days. Will await physical therapy evaluation. Most likely patient will require home health. Case management informed. Attestations Medical Necessity Statement*: Patient requires further hospitalization for management of sepsis secondary to complicated UTI, post cystoscopy and ureteral stent placement, acute CVA post TPA. Time Spent in Patient Care: Greater than 35 minutes (>than 50% of time spent in counselling and/or direct pt care on unit). Coding Level of Care Code Acute Reflexologist for [facility] Fwd Diagnoses Acute CVA (cerebrovascular accident) I63.9 UTI (urinary tract infection) N39.0 Urinary tract infection type: site unspecified Ureterolithiasis N20.1 Status post cystoscopy with ureteral stent placement Z96.0 Sepsis A41.9 Acute on chronic renal failure N17.9; N18.9
[2020-05-19] MEDS: ciprofloxacin 500 mg Tablet PO (21:52)
[2020-05-19] MEDS: atorvastatin 40 mg Tablet PO (21:53)
[2020-05-20] VITALS (10 sets, daily range): BP systolic 138–170; BP diastolic 80–90; PULSE 72–78; RESP 16–18; TEMP 36.8–36.9; O2SAT 91–95
[2020-05-20 01:50] LABS: Vancomycin Trough 9.2 ug/mL (10-15)
[2020-05-20] MEDS: fluticasone nasal spray 16gm Btl 2 SPRAY INTRANASAL (07:04)
[2020-05-20] MEDS: estradiol 1 mg Tablet 0.5 MG PO (07:05)
[2020-05-20] MEDS: cetirizine 10 mg Tablet PO (07:05)
[2020-05-20] MEDS: sertraline 100 mg Tablet 150 MG PO (07:05)
[2020-05-20] MEDS: predniSONE 1 mg Tablet 2 MG PO (07:05)
[2020-05-20] MEDS: famotidine 20 mg Tablet PO (07:06)
[2020-05-20] MEDS: ciprofloxacin 500 mg Tablet PO (08:20)
[2020-05-20] MEDS: amlodipine 10 mg Tablet PO (08:20)
[2020-05-20] MEDS: aspirin 81 mg EC Tablet PO (08:20)
[2020-05-20] MEDS: metoprolol tartrate 25 mg Tablet PO (08:20)
--- NOTE | 2020-05-20 09:56 | PM.PN ---
Subjective Subjective: Interval history: No events overnight. Patient seen today morning. During examination patient was lying down in bed, in jovial mood. Denies any nausea vomiting, headache. Working well with physical therapy. Has been hemodynamically stable in last 24 hours. Vitals/I&O/Wt Last Vital Signs Temp 98.3 F 05/20/20 08:00 Pulse 72 05/20/20 08:00 Resp 18 05/20/20 08:00 BP 141/83 05/20/20 08:00 Pulse Ox 95 05/20/20 08:00 05/19/20 05/20/20 05/20/20 22:59 06:59 14:59 Intake Total 120 / 580 400 / 980 120 / 120 Output Total 480 / 480 Balance -360 / 100 400 / 500 120 / 120 Physical Exam Narrative: EXAM NARRATIVE: General: No acute distress, AO x3, no pallor no icterus HEENT: PERRLA, pupils bilaterally equal and reactive, 4 x 5 in left Chest: Normal vesicular breath sounds, no added sounds, equal good air entry bilaterally CVS: S1-S2 regular, no murmurs, no tachycardia, no gallops, no rubs Abdomen: Soft, nontender, no organomegaly, bowel sounds present Neuro: No focal deficits, no facial deformity, AO x3, power upper limb and lower limb, dysarthria present, NIH 4 Data : 05/19/20 03:22 05/19/20 03:22 Micro: Microbiology 05/18/20 12:41 Blood Culture - Preliminary Blood NEGATIVE TO DATE 05/18/20 12:37 Blood Culture - Preliminary Blood NEGATIVE TO DATE 05/17/20 11:57 Urine Culture - Final Urine,Clean Catch Proteus mirabilis A&P Assessment and plan (1) Acute CVA (cerebrovascular accident): Status: Acute (2) UTI (urinary tract infection): Status: Acute Qualifiers: Urinary tract infection type: site unspecified (3) Ureterolithiasis: Status: Acute (4) Status post cystoscopy with ureteral stent placement: Status: Acute (5) Sepsis: Status: Acute (6) Acute on chronic renal failure: Status: Acute Additional A&P Information Acute CVA post TPA: Episode of rapid rate. Physical therapy, Occupational Therapy. Continue with statin, aspirin. MRI, carotid Doppler, echocardiogram results appreciated. Patient to follow-up with Dr. Durand in her office in 2 weeks post discharge. Sepsis secondary to UTI/urolithiasis post cystoscopy and ureteral stent placement: Postoperative day 2. Leukocytosis and creatinine improving. Renal ultrasound results appreciated. Urine cultures growing Proteus mirabilis. Stop vancomycin and cefepime and changed to oral ciprofloxacin 500 twice daily as per the culture sensitivities. Patient will most likely need a treatment for overall 10 days. Hypertension: Goal blood pressure of less than 140/90 mmHg. Stop lisinopril. Start patient on amlodipine 10 mg and metoprolol 25 twice daily. Given the solitary kidney it would be best if COLETTE inhibitors are avoided in the patient. Continue other chronic medications including prednisone 2 mg twice daily, sertraline. Full code. Soft mechanical cardiac diet. Hold off on any pharmacological DVT prophylaxis because of TPA last night. Discharge planning: Case discussed with Dr. Elder. Patient stable enough from medical point of view to be discharged home today. Patient to be discharged on ciprofloxacin 500 mg twice daily as per culture sensitivity for 10 more days to finish a 14-day course of antibiotics post stent placement. Her antihypertensives have been changed from lisinopril to amlodipine 10 mg and metoprolol succinate 25 mg daily. Patient to avoid COLETTE inhibitors going forward given solitary kidney. Patient to take aspirin, statin for CVA. Patient to follow-up with Dr. Durand in [address] Elder as per set appointments. Patient to advance diet to regular cardiac diet as tolerated. Continue other chronic oral medications. Attestations Medical Necessity Statement*: As per primary team. Time Spent in Patient Care: Greater than 35 minutes (>than 50% of time spent in counselling and/or direct pt care on unit). Coding Level of Care Code Acute Briefcase Sewer for [facility] Diagnoses Acute CVA (cerebrovascular accident) I63.9 UTI (urinary tract infection) N39.0 Urinary tract infection type: site unspecified Ureterolithiasis N20.1 Status post cystoscopy with ureteral stent placement Z96.0 Sepsis A41.9 Acute on chronic renal failure N17.9; N18.9
--- NOTE | 2020-06-05 11:25 | PM.DCS ---
Discharge Providers Date of Admission: 05/17/20 17:39 Date of Discharge: June 05, 2020 Attending Provider at Admission: Carlton Elder MD Attending Provider at Discharge: Carlton Elder MD Primary Care Provider: Maira Gilbert MD Diagnoses at Discharge Discharge Diagnosis (1) Ureterolithiasis: Status: Acute Permanent problem details: Obstructing left proximal ureteral stone May 2020 leftComplication of associated pyelonephritis. Emergency stenting. (2) UTI (urinary tract infection): Status: Acute Qualifiers: Urinary tract infection type: acute pyelonephritis Qualified Code(s): N10 - Acute pyelonephritis (3) Acute right arterial ischemic stroke, middle cerebral artery (MCA): Status: Acute Permanent problem details: Recurred on evening of emergency stent placement for obstructive pyelonephritis. Treated with TPA with good recovery. Reason for Visit Reason for Visit: Sick/Back pain Hospital Course Hospital Course Admitted on 05/17/2020 with obstructive pyelonephritis. Emergency right ureteral stenting which went well. On the evening of her surgery she acutely developed symptoms of left facial droop and stroke alert was called. Was transferred to the ICU and TPA initiated per stroke protocol. She did very well from that perspective. Was seen by Dr. Durand the following day for the acute right arterial ischemic stroke, middle cerebral artery. Was felt to have a good long-term prognosis. After appropriate interval surveillance she was felt to be a good candidate for further convalescence at home and was discharged on 05/20/2020. Stent was left indwelling in discharge and she was planned for endoscopic treatment of the stone on follow-up. Physical Exam Const: COMMON NORMALS: no acute distress, alert and well nourished GENERAL APPEARANCE: well kempt and well developed ORIENTATION/CONSCIOUSNESS: not confused HENMT: COMMON NORMALS: normocephalic and atraumatic HEAD & SCALP: normocephalic and atraumatic Eye: COMMON NORMALS: conjunctivae normal CONJUNCTIVA: Yes conjunctivae normal Neck/C-Spine: COMMON NORMALS: full ROM GENERAL: Yes normal visual inspection Resp: COMMON NORMALS: normal respiratory effort EFFORT & INSPECTION: No labored and No Actively coughing Neuro: SENSORIUM/ORIENTATION: Yes alert Psych: COMMON NORMALS: mental status grossly normal APPEARANCE: Yes grossly normal and Yes well kempt ATTITUDE: Yes calm and Yes engaged Skin: COMMON NORMALS: no rashes or lesions noted and no jaundice GENERAL SKIN EXAM: no rashes or lesions noted Discharge Data Data Completed and Pending: Completed Studies During Hospitalization Category Date Time Status CT head wo con* 7 0450 Stat Cat Scan 05/17/[address] kidney stone 7 5596 Stat Cat Scan 05/17/20 12:39 Completed MR angio head wo con [id number] Stat MRI 05/17/20 23:57 Completed CV carotid duplex BI* [id number] Routine Ultrasound 05/18/20 06:00 Completed CV echo complete* [id number] Routine Ultrasound 05/18/20 06:00 Completed US renal BI* [id number] 0 Routine Ultrasound 05/18/20 14:00 Completed Vitals: Last Vital Signs Temp 98.3 F 05/20/20 14:09 Pulse 73 05/20/20 14:09 Resp 18 05/20/20 14:09 BP 170/90 05/20/20 14:09 Pulse Ox 91 05/20/20 12:00 Discharge Plan Discharge Patient Disposition: Home Condition: Stable Prescriptions: New atorvastatin 40 mg Tablet 40 mg PO BEDTIME Qty: 30 RF: 0 aspirin 81 mg Tablet,Delayed Release (Dr/Ec) 81 mg PO DAILY Qty: 30 RF: 0 amlodipine 10 mg Tablet 10 mg PO DAILY 30 Days Qty: 30 RF: 0 Continued albuterol sulfate [ProAir HFA] 90 mcg/actuation HFA aerosol inhaler 1 puff INHALATION Q4H PRN (Reason: Shortness Of Breath) RF: 0 Flovent HFA 110 mcg/actuation HFA aerosol inhaler 2 puff INHALATION DAILY PRN (Reason: Shortness Of Breath) RF: 0 fluticasone propionate [Allergy Relief (fluticasone)] 50 mcg/actuation spray,suspension 2 spray INTRANASAL DAILY RF: 0 Zyrtec 10 mg capsule 10 mg PO DAILY RF: 0 cholecalciferol (vitamin D3) 4,000 unit capsule 2,000 unit PO BID RF: 0 Multivitamin 50 Plus Tablet 1 tab PO DAILY RF: 0 famotidine [Pepcid] 20 mg tablet 20 mg PO BID RF: 0 estradiol 1 mg tablet 0.5 mg PO BID RF: 0 Discontinued lisinopril 5 mg tablet 10 mg PO DAILY@0600 RF: 0 No Action ciprofloxacin HCl 500 mg tablet 500 mg PO BID Qty: 60 RF: 1 Actemra 162 mg/0.9 mL syringe 162 mg SUBCUT Q7D Qty: 3.6 RF: 5 Zoloft 100 mg tablet 150 mg PO DAILY RF: 0 prednisone 1 mg tablet 2 mg PO BID RF: 0 metoprolol succinate 25 mg tablet extended release 24 hr 25 mg PO BEDTIME RF: 0 Discharge Orders: Discharge Order (Routine); Ordered 05/20/20 Ordered By: Carlton Elder Referrals: Chloe Durand MD [Physician] - 06/03/20 9:30 am Carlton Elder MD [Physician] - 06/03/20 7:00 am (kub 1st APPOINTMENT AT [facility] [place] [facility]UB THEN TO [place] [facility]) Maira Gilbert MD [Primary Care Provider] - 05/25/20 11:00 am Discharge Diet: Usual diet Discharge Activity: Resume usual activity Patient Instructions: Ciprofloxacin (By mouth), Metoprolol (By mouth), Aspirin (By mouth), Amlodipine (By mouth), Atorvastatin (By mouth), Ischemic Stroke (GEN), Self Care Measures After a Stroke (DC), Ureteral Stent Placement (DC), Stroke Stoplight Discharge Attestations Time Spent in Discharge Care*: greater than 30 min Quality Metrics Clinical Quality Measures During this hospital stay, did patient experience: Stroke Contraindication to Antithrombotic: Antithrombotic prescribed Contraindication to Anticoagulation: Anticoagulation prescribed Contraindication to Statin: Statin prescribed Coding Level of Care Code Acute Political Science Chair for g Fwd Exam Detailed Diagnoses Ureterolithiasis N20.1 UTI (urinary tract infection) N10 Urinary tract infection type: acute pyelonephritis Acute right arterial ischemic stroke, middle cerebral artery (MCA) I63.511
== END 2020-05-20 13:45 | disposition home or self-care (01) | DRG 853 ==
LOC: ER 14:37 → OR 15:07 → ICU 05-18 06:38 → MEDSURG 05-18 06:38 → ICU 05-19 09:02 → MEDSURG 05-19 11:07
PROVIDERS: Internal Medicine; Student in an Organized Health Care Education/Training Program; Admitting Provider Urology; Emergency Provider Family Medicine; PCP Family Medicine; Visit Provider Urology
PROC: 0TJB8ZZ Inspection of Bladder, Via Natural or Artificial Opening Endoscopic (ICD-10-PCS; CPT 52000; principal; 2020-05-17 15:35)
PROC: (CPT 50605; 2020-05-17 15:35)
DX: A41.9 Sepsis, unspecified organism (principal); I60.11 Nontraumatic subarachnoid hemorrhage from right middle cerebral artery; N13.2 Hydronephrosis with renal and ureteral calculous obstruction; N39.0 Urinary tract infection, site not specified; N17.9 Acute kidney failure, unspecified; N10 Acute pyelonephritis; G81.94 Hemiplegia, unspecified affecting left nondominant side; Z90.5 Acquired absence of kidney; Z79.52 Long term (current) use of systemic steroids; M31.6 Other giant cell arteritis; J45.909 Unspecified asthma, uncomplicated; I12.9 Hypertensive chronic kidney disease with stage 1 through stage 4 chronic kidney disease, or unspecified chronic kidney disease; N18.30 Chronic kidney disease, stage 3 unspecified; F32.9 Major depressive disorder, single episode, unspecified; K21.9 Gastro-esophageal reflux disease without esophagitis; Z85.820 Personal history of malignant melanoma of skin; Z87.891 Personal history of nicotine dependence; R29.810 Facial weakness; R47.1 Dysarthria and anarthria; R29.708 NIHSS score 8; F40.240 Claustrophobia; B96.4 Proteus (mirabilis) (morganii) as the cause of diseases classified elsewhere
CPT/HCPCS: 12345; 36415; 36416; 70450; 70544; 74176; 76000; 76770; 76857; 80048; 80053; 80061; 80202; 81001; 82962; 83036; 83540; 83550; 83605; 83690; 83721; 84145; 84443; 85025; 85610; 87040; 87077; 87086; 87186; 92507; 92523; 92610; 93306; 93880; 97110; 97116; 97162; 99282; C2625; J0330; J0692; J1885; J1956; J2270; J2370; J2405; J2704; J2710; J2930; J2997; J3010; J3370; J3490; J3535; J7030; J7050; J7512; J8499

== ENCOUNTER 2020-06-03 07:06 | Outpatient (CLI) | payer BC, SELFPAY ==
--- NOTE | 2020-06-03 07:23 | XR_ITS ---
WS: [id number] Exam: XR KUB [id number] Date/Time of Exam: 06/03/2020 7:23 AM Reason For Exam: stones A right-sided pigtail ureteral catheter is in place appearing to be in appropriate location without c hange since previous study 05/17/2020. No bowel obstruction or free air. Surgical clips seen in the lef t abdomen. Visualized organ margins are intact. Small nonspecific pelvic calcifications are noted. Sm all calcifications along the left paraspinal region at the level of the L2-3 disc which are nonspecif ic. XR/XR KUB [id number] IMPRESSION: 1. Right-sided ureteral catheter appearing to be in appropriate location. 2. No acute abdominal finding. 3. Surgical clips in the left abdomen apparently secondary to left nephrectomy.
[2020-06-03 12:02] LABS: Basophils # 0.1 10^3/uL (0.0-0.1); Eosinophils # 0.1 10^3/uL (0.0-0.8); Hematocrit 40.4 % (37.0-47.0); Hemoglobin 13.1 g/dL (11.5-15.3); Lymphocytes # 1.5 10^3/uL (0.8-4.8); Lymphocytes % 21.2 %; Mean Corpuscular HGB Conc 32.4 g/dL (30.0-36.0); Mean Corpuscular Hemoglobin 32.7 pg (28.0-34.0); Mean Corpuscular Volume 100.7 fL (81-99); Mean Platelet Volume 10.3 fL (7.4-10.4); Monocytes # 0.5 10^3/uL (0.2-0.9); Monocytes % 7.3 %; Neutrophils # 4.74 10^3/uL (1.8-7.7); Neutrophils % 68.9 %; Nucleated Red Blood Cells % 0 %; Platelet Count 344 10^3/cmm (130-400); Red Blood Count 4.01 10^6/uL (4.1-5.3); Red Cell Distribution Width 12.7 % (12.1-15.1); White Blood Count 6.9 10^3/uL (4.0-10.0)
[2020-06-03 12:34] LABS: UPRO/UCREAT Ratio 0.55 mg/mg CR; Urine Creatinine 186 mg/dL (28-217); Urine Protein Random 102 mg/dL
[2020-06-03 12:38] LABS: 25 Hydroxy Vitamin D 65 ng/mL (30-100); Albumin Level 4.5 g/dL (3.5-5.2); Anion Gap 13.7 (5-19); Blood Urea Nitrogen 19 mg/dL (6-20); Calcium 9.4 mg/dL (8.5-10.5); Carbon Dioxide 27 mmol/L (22-29); Chloride 103 mmol/L (98-107); Glomerular Filtration Rate 46.1 mL/min (90-130); Glucose 102 mg/dL (65-115); Phosphorus 3.7 mg/dL (2.5-4.5); Potassium 3.7 mmol/L (3.5-5.1); Sodium 140 mmol/L (136-145)
[2020-06-03 12:40] LABS: Calcium 9.7 mg/dL (8.5-10.5); Parathyroid Hormone 54.2 pg/mL (15-65)
== END 2020-06-03 07:07 | disposition home or self-care (01) ==
PROVIDERS: PCP Family Medicine; Referring Provider Nurse Practitioner; Visit Provider Urology
DX: N20.1 Calculus of ureter (principal); R00.2 Palpitations; G47.30 Sleep apnea, unspecified; Z86.73 Personal history of transient ischemic attack (TIA), and cerebral infarction without residual deficits; Z87.891 Personal history of nicotine dependence; Z20.822 Contact with and (suspected) exposure to COVID-19
CPT/HCPCS: 36415; 74018; 80069; 81003; 82306; 82310; 82570; 83970; 84156; 85025; 87635; 99205

== ENCOUNTER → 2020-06-05 08:59 | Outpatient (BNVA) | payer BC, SELFPAY | PROVIDERS: PCP Family Medicine; Visit Provider Internal Medicine | DX: M31.6 Other giant cell arteritis (principal); H53.9 Unspecified visual disturbance; R51.9 Headache, unspecified; Z86.73 Personal history of transient ischemic attack (TIA), and cerebral infarction without residual deficits; Z87.891 Personal history of nicotine dependence | CPT/HCPCS: 99213 ==

== ENCOUNTER 2020-06-08 13:56 | Day surgery (SDC) | payer BC, SELFPAY ==
[2020-06-05 11:01] VITALS: BMI 36.8
--- NOTE | 2020-06-05 11:32 | P.ANESASSM_ITS ---
Pre-Anesthetic Assessment Pre-Anesthetic Assessment: Height/Weight: Height 1.65 m Weight 100.244 kg Preop Diagnosis: Right proximal ureteral calculus Proposed Procedure: Operation Date: 06/08/20 15:55 Proposed Procedures p Cystoscopy 22851 [id number] 73976 N20.1(Right) - MD dinesh Lopez Retrograde Pyelogram(Right) - MD dinesh Lopez Ureteroscopy(Right) - MD dinesh Lopez Laser Lithotripsy(Not Applicable) - MD dinesh Lopez Ureteral Stent Exchange(Not Applicable) - Carlton Elder MD Was Beta Ronn taken within 24 hours: Yes Social: Social History: No alcohol and No tobacco Exam: Pre-Anes Outpt Exam: alert, oriented x 3, clear to auscultation bilaterally and regular rate & rhythm Airway: Submandibular: WNL Cervical ROM: WNL MP: 2 Dentition: Full Pulmonary: Pulmonary: Asthma : Comments: kidney stones GI: GI: GERD Neuropsych: Neuropsych: CVA and Deficit (Left sided facial droop and weakness) Comments: CVA happened after last surgery...?related to temporal arteritis Anesthetic Plan: ASA status: 3 Anesthesia: General Other: Denominational Risk of > 500 ml blood loss (7ml/kg in children): No PFSH Anesthesia PFSH: Medical History Acute CVA (cerebrovascular accident) Asthma Chronic kidney disease, stage 3 Current chronic use of systemic steroids Depression Dermatitis Gastroesophageal reflux History of melanoma Right arm - removed 11/2013. Right forearm - removed 08/2011. 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 08/2011: Removed from right forearm. H/O oral surgery (~2013) Remove growth from mouth - benign. H/O: hysterectomy (12/11/07) LAVH/BSO. Dx: Uterine fibroids, Menorrhagia, Dysmenorrhea. Performed by Dr. Kelly at [facility] in [place], [place]. History of colonoscopy (~03/2015) Dr. Stewart Status post cystoscopy with ureteral stent placement Fenton teeth extracted (~2004) Family History Grandfather Stroke Maternal grandfather Mother Hyperlipidemia Hypertension Father Heart disease Grandmother Heart disease Paternal grandmother Diabetes Paternal grandmother Hypertension Maternal grandmother Denies family history of Anesthesia complication Bleeding disorder Social History Smoking and tobacco status: former smoker Quit status (tobacco): has quit using tobacco Year quit tobacco: 1990 Alcohol intake: current Alcohol intake frequency: holidays/special occasions only History of recent travel: No Data Anesthesia Cardiac Studies: No Data to Display
[2020-06-08] VITALS (7 sets, daily range): BP systolic 128–145; BP diastolic 70–81; PULSE 74–95; RESP 16–18; TEMP 36.3–36.8; O2SAT 92–98
--- NOTE | 2020-06-08 13:33 | SCC_ITS ---
Procedure Done: 1. Cystoscopy, removal of right ureteral stent 2. Right flexible ureterorenoscopy with laser lithotripsy 3. Right ureteral stent placement 41.5 seconds of fluoroscopic guidance, for a cumulative dose of 6.08 mGy, was provided to Dr. Elder by the radiology department. C-arm images of the abdomen were saved for the patient's permanent record. [facility]
--- NOTE | 2020-06-08 13:59 | FLR_ITS ---
PROCEDURE INFORMATION: Exam: KUB Exam date and time: 06/08/2020 2:10 PM Age: 60 years old Clinical indication: Screening exam; Prior surgery; Surgery type: RT stent, left nephrectomy, hyst; Additional info: Preop right ureteroscopy TECHNIQUE: Imaging protocol: KUB. COMPARISON: CR XR KUB [id number] 06/03/2020 7:29 AM FINDINGS: The bowel gas pattern is within normal limits. A double-J ureteral stent is in place on the right side in good position. A there is an 8 mm caliceal stone in the lower pole collecting system of the right kidney metallic malcolm are seen in the left upper quadrant and left lower quadrant comparison to prior examination similar findings are seen XR/XR KUB [id number] IMPRESSION: 1. Negative for acute abnormality. 2. Stable double-J ureteral stent right side. 3. Caliceal stone lower pole right kidney. 4. Metallic surgical clips in the left abdomen
--- NOTE | 2020-06-08 13:59 | SC_ITS ---
WS: [id number] C-ARM RADIOGRAPHS ABDOMEN; 2 IMAGES HISTORY: Right ureteroscopy COMPARISON: None available. Intraoperative imaging during RIGHT ureteroscopy. Single image demonstrates the proximal pigtail cath eter. SC/C-arm FL for Urology IMPRESSION: Intraoperative imaging during RIGHT ureteroscopy.
--- NOTE | 2020-06-08 16:22 | P.ANESUD_ITS ---
Pre-Anesthetic Update Pre-Anesthetic Assessment: Date of Surgery/Procedure: 06/08/20 Preop Darcy gnosis: Right proximal ureteral calculus Proposed Procedure: Operation Date: 06/08/20 15:55 Proposed Procedures p Cystoscopy 55016 [id number] 89661 N20.1(Right) - MD dinesh Lopez Retrograde Pyelogram(Right) - MD dinesh Lopez Ureteroscopy(Right) - MD dinesh Lopez Laser Lithotripsy(Not Applicable) - MD dinesh Lopez Ureteral Stent Exchange(Not Applicable) - Carlton Elder MD Any changes to Pre-Anesthetic Assessment?: No Last Intake: Intake Last Liquid Date 06/07/20 Last Solid Date 06/07/20 Vitals: Temperature 97.4 F L 06/08/20 14:24 Temperature Source Temporal Artery S can 06/08/20 14:24 Pulse Rate 74 06/08/20 14:24 Pulse Rhythm 06/08/20 15:41 Pulse Strength 3+ Normal 06/08/20 15:41 Respiratory Rate 18 06/08/20 14:24 Blood Pressure 145/80 06/08/20 14:24 Blood Pressure Nancy n 101 06/08/20 14:24 Pulse Oximetry 98 06/08/20 14:24 Oxygen Delivery Me thod 06/08/20 15:41 Exam: Pre-Anes Outpt Exam: alert, oriented x 3, clear to auscultation bilaterally and regular rate & rhythm Other Pertinent Information: Other Pertinent Information: Patient has guardian who can monitor her for development of any stroke symptoms, she continues to use her aspirin that was perscribed afterwards Cardiac Studies: No Data to Display
--- NOTE | 2020-06-08 17:53 | P.HPUD_ITS ---
Surgery/Procedure H&P Update DATE OF PROCEDURE: June 08, 2020 DATE H&P PERFORMED: 06/03/20 H&P UPDATE INFORMATION: I have reviewed H&P completed within last 30 days, I have examined patient prior to procedure, No changes to prior documentation and H&P is in [facility] EMR on date indicated PREOP DIAGNOSIS: Right proximal ureteral calculus PLANNED PROCEDURE: Operation Date: 06/08/20 15:55 Proposed Procedures p Cystoscopy 54912 [id number] 73091 N20.1(Right) - Carlton Elder MD s Retrograde Pyelogram(Right) - MD dinesh Lopez Ureteroscopy(Right) - MD dinesh Lopez Laser Lithotripsy(Not Applicable) - MD dinesh Lopez Ureteral Stent Exchange(Not Applicable) - Carlton Elder MD
--- NOTE | 2020-06-08 17:54 | P.OP_ITS ---
Operative Report Date of procedure: June 08, 2020 Pre-op Diagnosis: Right proximal ureteral calculus Procedure Done: 1. Cystoscopy, removal of right ureteral stent 2. Right flexible ureterorenoscopy with laser lithotripsy 3. Right ureteral stent placement Implants: Right ureteral stent Pathology: Stone fragments Surgeon: Jael Anesthesia: General Estimated blood loss: Minimal Urine output: Not measured Complications: None Condition: stable Disposition: PACU Brief History: Ms. Sawant is a very pleasant 60-year-old white female who I first evaluated in May for obstructive pyelonephritis secondary to what appeared to be a stone in the right proximal ureter with proximal dilation. She also is known to have another stone in the right lower pole infundibulum. The right lower pole stone could be easily seen on the topography images but the ureteral stone could not. She underwent emergency stenting for septic complications related to this process. Her postoperative course was further complicated by CVA but she recovered well with TPA administered by the hospitalist service with neurology consultation. She was seen in follow-up in the clinic and KUB failed to show the ureteral stone but did show easily the right lower pole stone. Since she had recovered well from the infection perspective she is being admitted now for attempt at definitive therapy for the stones via endoscopic approach retrograde fashion. Procedure: After routine preoperative evaluation examination and obtaining of informed consent she was taken to the operating suite on 06/08/2020 where general anesthesia was administered without difficulty after appropriate timeout was performed, SCDs confirmed to be functioning, preoperative antibiotics administered, beta-bo protocol confirmed. Prepped and draped in the usual sterile fashion in dorsolithotomy position paying careful attention to avoiding pressure points. 21 Armenian cystoscope with 30 degree lens was introduced into the urethra meatus and advanced into the bladder under videoscopy. The bladder was systematically examined. The stent was in the expected position. A flexible stent was then passed without difficulty next to the stent up into the renal pelvis. The stent was grasped with grasping forceps and withdrawn under fluoroscopic monitoring with easy uncurling of the proximal end. Prior to complete withdrawal a second guidewire was passed up the stent and then the stent was removed. The flexible ureteroscope was then advanced over the second wire (the first wire was secured to the drapes as a safety wire) up the ureter to the kidney. The ureter was carefully inspected both as it was being advanced and then again after the wire was removed. There was no stone or sediment within the ureter. All calyces were carefully inspected with easy access. There was only 1 stone and that was the larger stone seen on the CT scan and the follow-up KUBs. No other stone could be identified. The stone was treated with a 365 ?m thulium superpulse laser fiber. Had the consistency of the stone plus matrix and was easily broken up. The scope was removed after placing another guidewire and a 38 cm ureteral access sheath was advanced up the second guidewire into the renal pelvis without difficulty. The wire was removed and the flexible ureteroscope was then again advanced up to the kidney through this sheath this time and a 2.2 Armenian X catch basket was utilized to remove the bulk of the stone fragments. On final inspection there were no large stone fragments. There was some small ketan type material and the bulk of the matrix type material was removed as well. Multiple passages were utilized to remove this material. The ureteral access sheath was removed and then the cystoscope was backloaded over the safety wire and a 7 Armenian by 26 cm double-pigtail stent was advanced over the guidewire through the cystoscope into appropriate position as confirmed via fluoroscopy and cystoscopy The bladder was drained and the procedure was completed. She tolerated the procedure well without complications and was awakened in the operating room and returned to recovery in stable condition. PLANS: 1. Anticipate discharge from outpatient surgery 2. Follow-up in roughly 1 week with KUB and likely cystoscopy with stent removal.
[2020-06-08] MEDS: sodium chloride 0.9% 1,000 ML 30 ML IV (17:56)
[2020-06-08] MEDS: levofloxacin-dextrose 5 % 500 MG/100 ML PREMIX 100 MG IV (18:30)
[2020-06-08] MEDS: iohexol 300 mg/mL 50 mL Btl (OR ONLY) XX (18:53)
--- NOTE | 2020-06-08 19:50 | ANE.PACU2 ---
Inpatient post-anesthesia follow up: Airway intact: Yes Vital signs: Temperature 98.3 F Pulse Rate 76 Respiratory Rate 18 Blood Pressure 132/72 Pulse Oximetry 93 Oxygen Delivery Me thod Room Air Oxygen Flow Rate 3 Fraction of Inspir ed Oxygen Hydration adequate: Yes Nausea and vomiting: No Pain level: 1 Mental status: Baseline
--- NOTE | 2020-06-08 20:05 | SUR.PHASEI ---
1999 PT AWAKE ALERT VERBALIZED APPROPRIATELY BUT SLOWLY SOME DEFICIT TO LEFT SIDE OF FACE , PT RECENTLY HAD A STROKE AND HAS LEFT SIDED WEAKNESS, PT SPEECH IS CLEAR BUT SLOW, PT TAKING OCC ICE CHIPS WITHOUT DIFFICULTY AND PT DENIES PAIN OR NAUSEA PT REQUESTED APPLE JUICE TO SIP ON. PT TO OPS HANDOFF TO NURSE AT BEDSIDE WITH PT SISTER AT BEDSIDE WELL.
== END 2020-06-08 20:36 | disposition home or self-care (01) ==
PROVIDERS: PCP Family Medicine; Visit Provider Urology
PROC: 0TJB8ZZ Inspection of Bladder, Via Natural or Artificial Opening Endoscopic (ICD-10-PCS; CPT 52000; principal; 2020-06-08 15:55)
PROC: (CPT 74420; 2020-06-08 15:55)
PROC: 0TJ98ZZ Inspection of Ureter, Via Natural or Artificial Opening Endoscopic (ICD-10-PCS; CPT 52351; 2020-06-08 15:55)
PROC: (CPT 52356; 2020-06-08 15:55)
PROC: (CPT 52356; 2020-06-08 15:55)
DX: N20.1 Calculus of ureter (principal); J45.909 Unspecified asthma, uncomplicated; K21.9 Gastro-esophageal reflux disease without esophagitis; I69.992 Facial weakness following unspecified cerebrovascular disease; N18.30 Chronic kidney disease, stage 3 unspecified; Z87.891 Personal history of nicotine dependence
CPT/HCPCS: 52356; 74018; 76000; 82365; 88300; C2625; J1100; J1956; J2250; J2405; J2704; J2710; J3010; J3490; J7030

== ENCOUNTER 2020-06-17 09:54 | Outpatient (CLI) | payer BC, SELFPAY ==
--- NOTE | 2020-06-17 09:30 | XR_ITS ---
WS: [id number] KUB, AP view, 06/17/2020 Clinical Data: STONE Comparison: KUB, 06/08/2020. Findings: No abnormal intraabdominal masses or calcifications are seen. There is no dilatated small bowel or ev idence of obstruction. The calcification that was noted on the lower pole right kidney is not seen. A right ureteral stent r emains in good position. There are surgical clips on the left side of the abdomen. XR/XR KUB [id number] Impression: 1. No change in right ureteral stent. 2. Inferior pole right renal calculus not seen.
== END 2020-06-17 09:55 | disposition home or self-care (01) ==
PROVIDERS: PCP Family Medicine; Visit Provider Urology
DX: N20.1 Calculus of ureter (principal); Z96.0 Presence of urogenital implants
CPT/HCPCS: 74018; 81003

== ENCOUNTER 2020-06-25 20:00 | Outpatient (CLI) | payer BC, SELFPAY | END 2020-06-25 20:01 | disposition home or self-care (01) | LOC: SLEEP 06-26 09:37 | PROVIDERS: PCP Family Medicine; Visit Provider Nurse Practitioner | DX: G47.30 Sleep apnea, unspecified (principal) | CPT/HCPCS: 95810 ==

== ENCOUNTER 2020-07-01 06:57 | Outpatient (CLI) | payer BC, SELFPAY ==
--- NOTE | 2020-07-01 07:15 | MR_ITS ---
WS: [id number] MRI BRAIN WITHOUT CONTRAST HISTORY: I63.9 - Cerebral infarction, unspecified COMPARISON: CT head 05/17/2020 TECHNIQUE: Diffusion imaging, multiplanar T1, T2 and FLAIR imaging obtained. There is a small acute infarct in the RIGHT louie radiata that extends inferiorly along the white ma tter tracts of the posterior limb internal capsule. This infarct is bright on T2 and the diffusion-we ighted images but normal intensity on the ADC mapping suggesting this is at least 7 days old but les s than 30 days. Very mild chronic microvascular ischemic disease otherwise. Ventricles and extra-axial spaces are normal. No inferior displacement of cerebellar tonsils. The sella turcica and pituitary gland are unremarkabl e. Posterior fossa is also unremarkable. Dural venous sinuses and [place] of [place] demonstrate no abnormality on this unenhanced studies. Paranasal sinuses: Clear. Mastoid air cells: Normal. Calvarium and scalp: Intact. MR/MR head wo con* [id number] IMPRESSION: 1. Subacute infarct in the RIGHT louie radiata with extension along the white matter tract of the internal capsule. Infarct is probably greater than 7 days old but less than 30 days old. 2. Mild microvascular ischemic disease otherwise.
== END 2020-07-01 06:58 | disposition home or self-care (01) ==
PROVIDERS: PCP Family Medicine; Visit Provider Nurse Practitioner
DX: I63.9 Cerebral infarction, unspecified (principal); I67.82 Cerebral ischemia
CPT/HCPCS: 70551

== ENCOUNTER → 2020-10-08 13:07 | Outpatient (BNVA) | payer OTHER, SELFPAY | PROVIDERS: PCP Internal Medicine; Visit Provider Internal Medicine | DX: H53.9 Unspecified visual disturbance (principal); M31.6 Other giant cell arteritis; Z79.899 Other long term (current) drug therapy | CPT/HCPCS: 36415; 80053; 85025; 85651; 86140 ==

== ENCOUNTER → 2020-10-13 13:06 | Outpatient (BNVA) | payer OTHER, SELFPAY | PROVIDERS: PCP Internal Medicine; Visit Provider Internal Medicine | DX: M31.6 Other giant cell arteritis (principal); N18.9 Chronic kidney disease, unspecified; Z90.5 Acquired absence of kidney; Z79.52 Long term (current) use of systemic steroids | CPT/HCPCS: 99214 ==

== ENCOUNTER 2020-10-13 14:34 | Outpatient (CLI) | payer OTHER, SELFPAY ==
--- NOTE | 2020-10-13 14:47 | XRR_ITS ---
PROCEDURE INFORMATION: Exam: XR Bilateral Hips Exam date and time: 10/13/2020 2:47 PM Age: 60 years old Clinical indication: Hip pain and pelvic pain; Bilateral; Additional info: M31.6 - other giant cell arteritis, include pelvis TECHNIQUE: Imaging protocol: XR bilateral hips. Views: 2 views of hips with pelvis when performed. COMPARISON: CT kidney stone [id number] 05/17/2020 1:32 PM FINDINGS: Tubes, catheters and devices: Surgical clips noted in the lower abdomen just left of midline. Bones/joints: No evidence of fracture. No radiographic evidence of AVN of the hips. Mild periarticular sclerosis/DJD at the pubic symphysis. 1 cm bone island at the superior left acetabulum. Soft tissues: Unremarkable. XR/XR hip BI m 5V wo/w pel* [id number] IMPRESSION: No acute osseous abnormalities of the hips/pelvis.
--- NOTE | 2020-10-13 14:47 | XRR_ITS ---
PROCEDURE INFORMATION: Exam: XR Left Foot Exam date and time: 10/13/2020 2:47 PM Age: 60 years old Clinical indication: Pain; Foot; Left; Additional info: M25.50 - pain in unspecified joint TECHNIQUE: Imaging protocol: XR Left foot. Views: 1 or 2 views. COMPARISON: No relevant prior studies available. FINDINGS: Bones/joints: Normal. Soft tissues: Normal. Vasculature: Vascular calcifications within the distal ankle and foot noted. XR/XR foot LT 2V [id number] IMPRESSION: No acute osseous abnormalities of the left foot.
[2020-10-13 15:50] LABS: Add Urine Microscopic? NO; Charge for UA Resulting for Rev
[2020-10-13 16:05] LABS: C Reactive Protein 46.3 mg/L (0.0-4.9); Creatine Phosphokinase 62 U/L (26-192)
[2020-10-13 16:27] LABS: Bilirubin Urine Neg (Negative); Blood Urine Neg (Negative); Glucose Urine UA Norm (Normal); Ketones Urine Negative (Negative); Leukocyte Esterase Urine Negative (Negative); Nitrate Urine Negative (Negative); Protein Urine Neg (Negative); Urine Appearance Clear (CLEAR); Urine Color Yellow (Yellow); Urobilinogen Urine Norm (Negative); pH Urine 5 (5-7)
[2020-10-13 16:53] LABS: Erythrocyte Sedimentation Rate 85 mm/hr (0-15)
[2020-10-15 09:22] LABS: ANA SCREEN, IFA NEGATIVE (NEGATIVE); CENTROMERE B ANTIBODY <1.0 NEG AI (<1.0 NEG); COMPLEMENT COMPONENT C3C 186 mg/dL (83-193); COMPLEMENT COMPONENT C4C 42 mg/dL (15-57); COMPLEMENT, TOTAL (CH50) >60 U/mL (31-60); Cyclic Citrullinated Peptide <16 UNITS; JO-1 ANTIBODY <1.0 NEG AI (<1.0 NEG); RNP ANTIBODY <1.0 NEG AI (<1.0 NEG); SCL-70 ANTIBODY <1.0 NEG AI (<1.0 NEG); SJOGREN'S ANTIBODY (SS-A) <1.0 NEG AI (<1.0 NEG); SM ANTIBODY <1.0 NEG AI (<1.0 NEG); SS-B <1.0 NEG AI (<1.0 NEG); THYROID PEROXIDASE ANTIBODIES 1 IU/mL (<9)
[2020-10-16 12:04] LABS: ANCA Interp Negative (Negative)
[2020-10-18 23:37] LABS: DNA AB (DS) CRITHIDIA,IFA NEGATIVE (NEGATIVE)
== END 2020-10-13 14:35 | disposition home or self-care (01) ==
LOC: RAD 14:45
PROVIDERS: PCP Internal Medicine; Visit Provider Internal Medicine
DX: M31.6 Other giant cell arteritis (principal); E78.2 Mixed hyperlipidemia; K21.9 Gastro-esophageal reflux disease without esophagitis; M25.50 Pain in unspecified joint; N20.9 Urinary calculus, unspecified
CPT/HCPCS: 36415; 73523; 73620; 81003; 82550; 83516; 85651; 86140; 86160; 86162; 86235; 86255; 86376

== ENCOUNTER → 2020-11-25 13:21 | Outpatient (BNVA) | payer OTHER, SELFPAY | PROVIDERS: PCP Internal Medicine; Visit Provider Internal Medicine | DX: M31.6 Other giant cell arteritis (principal); N18.9 Chronic kidney disease, unspecified; Z79.52 Long term (current) use of systemic steroids; Z87.891 Personal history of nicotine dependence | CPT/HCPCS: 99213; 99214 ==

== ENCOUNTER → 2021-01-13 10:49 | Outpatient (BNVA) | payer OTHER, SELFPAY | PROVIDERS: PCP Internal Medicine; Visit Provider Family Medicine | DX: E78.2 Mixed hyperlipidemia (principal); I10 Essential (primary) hypertension; K21.9 Gastro-esophageal reflux disease without esophagitis; Z23 Encounter for immunization | CPT/HCPCS: 80053; 80061; 84443; 85025 ==

== ENCOUNTER → 2021-02-23 14:41 | Outpatient (BNVA) | payer OTHER, SELFPAY | PROVIDERS: PCP Family Medicine; Visit Provider Internal Medicine | DX: M31.6 Other giant cell arteritis (principal); Z79.899 Other long term (current) drug therapy; Z79.52 Long term (current) use of systemic steroids; N18.9 Chronic kidney disease, unspecified; Z90.5 Acquired absence of kidney; Z87.891 Personal history of nicotine dependence | CPT/HCPCS: 36415; 80053; 85025; 85651; 86140; 99214 ==

== ENCOUNTER 2021-02-24 13:08 | Outpatient (CLI) | payer OTHER, SELFPAY ==
--- NOTE | 2021-02-24 13:00 | XR_ITS ---
WS: [id number] Exam: XR KUB [id number] Date/Time of Exam: 02/24/2021 1:17 PM Reason For Exam: UROLITHIASIS Comparison 06/17/2020. No bowel obstruction or free air. Previously noted right ureteral stent catheter has been removed. Nu merous surgical clips and sutures in the left abdomen. Several tiny calcification superimpose right r enal silhouette. The left kidney is surgically absent as per prior imaging studies. Nonspecific small pelvic calcifications. No sign of organ enlargement. Moderate amount retained stool in the colon. XR/XR KUB [id number] IMPRESSION: 1. Several tiny calcifications superimposing the right kidney that may represen t renal stones. Status post left nephrectomy. 2. No acute finding. Other minor findings as above.
== END 2021-02-24 13:09 | disposition home or self-care (01) ==
LOC: RAD 13:10
PROVIDERS: PCP Family Medicine; Visit Provider Urology
DX: N20.9 Urinary calculus, unspecified (principal); Z90.5 Acquired absence of kidney
CPT/HCPCS: 74018; 81003

== ENCOUNTER 2021-03-25 13:49 | Outpatient (CLI) | payer OTHER, SELFPAY ==
--- NOTE | 2021-03-25 13:52 | CT_ITS ---
WS: [id number] CT ABDOMEN AND PELVIS NONCONTRAST HISTORY: UROLITHIASIS TECHNIQUE: Imaging performed through the abdomen and pelvis. Coronal and sagittal reformats are submi tted. All CT scans at [facility] use at least one of these dose optimization techniques: auto mated exposure control; mA and/or kV adjustment per patient size (includes targeted exams where dose is matched to clinical indication); or iterative reconstruction. DLP: 1873.38 mGy.cm COMPARISON: 05/17/2020 Lower thorax: Subsegmental areas of atelectasis in the lingula and in the lower lung chan. No pneum onia. Heart is normal. Small hiatal hernia. Liver: Normal size liver. No bile duct dilatation. There is an exophytic well-circumscribed nodule wi th low attenuation and low Hounsfield units extending into the pericardiac fat from the LEFT lobe of the liver. This nodule measures 15 mm and is unchanged in size since 05/17/2020 but slightly increased since 12/01/2013. Probably representing a small exophytic hepatic cyst. Gallbladder: Normal gallbladder. Pancreas: Normal size and attenuation. Normal pancreatic duct. No pancreatitis or mass. Spleen: Normal. Adrenal glands: Calcifications associated with the LEFT adrenal gland may be from prior granulomatous disease or hemorrhage. No change. Right kidney: Resolved renal enlargement and perinephric hemorrhage and hydronephrosis. No residual r enal calcifications or ureteral calcifications are identified. Left kidney: Prior nephrectomy. No recurrent mass at the renal bed. Aorta: Normal abdominal aorta, no aneurysm or atherosclerosis. No free fluid, intraperitoneal air or significant lymphadenopathy. GI tract: The appendix is not definitely visualized. No inflammatory changes in the RIGHT lower quadr ant. No obstructive pattern. Abdominal wall: Small umbilical hernia contains fat only. Pelvis: Prior hysterectomy. Neither uterus or ovaries are identified. Osseous structures: Unremarkable. CT/CT kidney stone [id number] IMPRESSION: 1. Resolved RIGHT hydronephrosis. No residual renal calcifications. 2. Stable exophytic cyst from the LEFT lobe of the liver extending into the pe ricardial fat. 3. No acute abdominal or pelvic abnormalities.
== END 2021-03-25 13:50 | disposition home or self-care (01) ==
LOC: RAD 13:51
PROVIDERS: PCP Family Medicine; Visit Provider Urology
DX: N20.9 Urinary calculus, unspecified (principal); N18.9 Chronic kidney disease, unspecified
CPT/HCPCS: 74176; 81003

== ENCOUNTER 2021-05-11 20:00 | Outpatient (CLI) | payer OTHER, SELFPAY | END 2021-05-11 20:01 | disposition home or self-care (01) | LOC: SLEEP 05-12 07:38 | PROVIDERS: PCP Family Medicine; Visit Provider Family Medicine | DX: G47.33 Obstructive sleep apnea (adult) (pediatric) (principal) | CPT/HCPCS: 95811 ==

== ENCOUNTER 2021-06-16 15:51 | Outpatient (CLI) | payer OTHER, SELFPAY ==
[2021-06-16 17:12] LABS: Erythrocyte Sedimentation Rate 19 mm/hr (0-15)
[2021-06-16 17:54] LABS: Alanine Aminotransferase 18 U/L (0-33); Alkaline Phosphatase 98 IU/L (35-105); Anion Gap 15.9 (5-19); Aspartate Amino Transferase 18 U/L (0-32); Blood Urea Nitrogen 20 mg/dL (6-20); C Reactive Protein 7.7 mg/L (0.0-4.9); Calcium 9.5 mg/dL (8.5-10.5); Carbon Dioxide 25 mmol/L (22-29); Chloride 99 mmol/L (98-107); Globulin 3.5 g/dL (1.3-4.6); Glomerular Filtration Rate 56.7 mL/min (90-130); Glucose 88 mg/dL (65-115); Osmolality Calculated 284 mOsm/kg (285-295); Potassium 3.9 mmol/L (3.5-5.1); Sodium 136 mmol/L (136-145); Total Bilirubin 0.3 mg/dL (0.15-1.2); Total Protein 7.5 g/dL (6.6-8.7)
== END 2021-06-16 15:52 | disposition home or self-care (01) ==
LOC: LAB 15:55
PROVIDERS: PCP Family Medicine; Visit Provider Internal Medicine
DX: M31.6 Other giant cell arteritis (principal); Z79.899 Other long term (current) drug therapy
CPT/HCPCS: 80053; 85651; 86140

== ENCOUNTER 2021-09-20 12:55 | Outpatient (CLI) | payer OTHER, SELFPAY ==
[2021-09-20 14:11] LABS: Basophils # 0.1 10^3/uL (0.0-0.1); Basophils % 0.6 %; Eosinophils # 0.1 10^3/uL (0.0-0.8); Eosinophils % 0.8 %; Hematocrit 35.5 % (37.0-47.0); Hemoglobin 11.6 g/dL (11.5-15.3); Lymphocytes % 25.5 %; Mean Corpuscular HGB Conc 32.7 g/dL (30.0-36.0); Mean Corpuscular Hemoglobin 32.8 pg (28.0-34.0); Mean Corpuscular Volume 100.3 fl (81-99); Mean Platelet Volume 11.3 fL (7.4-10.4); Monocytes # 0.6 10^3/uL (0.2-0.9); Monocytes % 6.9 %; Neutrophils # 5.23 10^3/uL (1.8-7.7); Neutrophils % 65.4 %; Nucleated Red Blood Cells % 0 %; Platelet Count 371 10^3/cmm (130-400); Red Blood Count 3.54 10^6/uL (4.1-5.3)
[2021-09-20 14:31] LABS: Alanine Aminotransferase 15 U/L (0-33); Albumin Level 3.9 g/dL (3.5-5.2); Alkaline Phosphatase 80 IU/L (35-105); Aspartate Amino Transferase 18 U/L (0-32); Blood Urea Nitrogen 24 mg/dL (6-20); Calcium 9.1 mg/dL (8.5-10.5); Carbon Dioxide 25 mmol/L (22-29); Chloride 105 mmol/L (98-107); Globulin 3.2 g/dL (1.3-4.6); Glomerular Filtration Rate 50.8 mL/min (90-130); Glucose 82 mg/dL (65-115); Osmolality Calculated 295 mOsm/kg (285-295); Sodium 141 mmol/L (136-145); Total Bilirubin 0.2 mg/dL (0.15-1.2); Total Protein 7.1 g/dL (6.6-8.7)
[2021-09-20 14:37] LABS: Anion Gap 15.9 (5-19); Potassium 4.9 mmol/L (3.5-5.1)
[2021-09-20 15:47] LABS: Erythrocyte Sedimentation Rate 22 mm/hr (0-15)
== END 2021-09-20 12:56 | disposition home or self-care (01) ==
PROVIDERS: PCP Family Medicine; Visit Provider Internal Medicine
DX: M31.6 Other giant cell arteritis (principal); Z79.899 Other long term (current) drug therapy
CPT/HCPCS: 36415; 80053; 85025; 85651; 86140

== ENCOUNTER → 2021-09-21 14:53 | Outpatient (BNVA) | payer OTHER, SELFPAY | PROVIDERS: PCP Family Medicine; Visit Provider Internal Medicine | DX: M25.552 Pain in left hip (principal) | CPT/HCPCS: 73502 ==

== ENCOUNTER 2021-12-20 14:06 | Outpatient (CLI) | payer OTHER, SELFPAY ==
[2021-12-20 15:16] LABS: Basophils % 0.5 %; Eosinophils # 0.1 10^3/uL (0.0-0.8); Eosinophils % 1.8 %; Hematocrit 39.3 % (37.0-47.0); Hemoglobin 12.7 g/dL (11.5-15.3); Lymphocytes # 2.3 10^3/uL (0.8-4.8); Lymphocytes % 29.2 %; Mean Corpuscular HGB Conc 32.3 g/dL (30.0-36.0); Mean Corpuscular Hemoglobin 33.2 pg (28.0-34.0); Mean Corpuscular Volume 102.6 fl (81-99); Mean Platelet Volume 10.5 fL (7.4-10.4); Monocytes # 0.7 10^3/uL (0.2-0.9); Monocytes % 8.5 %; Neutrophils # 4.66 10^3/uL (1.8-7.7); Neutrophils % 59.2 %; Nucleated Red Blood Cells % 0 %; Platelet Count 364 10^3/cmm (130-400); Red Blood Count 3.83 10^6/uL (4.1-5.3); Red Cell Distribution Width 15.9 % (12.1-15.1); White Blood Count 7.9 10^3/uL (4.0-10.0)
[2021-12-20 15:31] LABS: Albumin Level 3.8 g/dL (3.5-5.2); Alkaline Phosphatase 100 U/L (35-105); Blood Urea Nitrogen 22 mg/dL (6-20); C Reactive Protein 20.4 mg/L (0.0-4.9); Carbon Dioxide 27 mmol/L (22-29); Chloride 103 mmol/L (98-107); Creatine Phosphokinase 41 U/L (26-192); Glucose 85 mg/dL (65-115); Osmolality Calculated 297 mOsm/kg (285-295); Sodium 142 mmol/L (136-145); Total Bilirubin 0.2 mg/dL (0.15-1.2); Total Protein 7.8 g/dL (6.6-8.7)
[2021-12-20 15:34] LABS: Anion Gap 16.8 (5-19); Aspartate Amino Transferase 25 U/L (0-32); Potassium 4.8 mmol/L (3.5-5.1)
[2021-12-20 15:35] LABS: Alanine Aminotransferase 20 U/L (0-33)
[2021-12-20 15:38] LABS: Add Urine Microscopic? YES; Bilirubin Urine Neg (Negative); Blood Urine 2+ (Negative); Glucose Urine UA Norm (Normal); Ketones Urine Negative (Negative); Leukocyte Esterase Urine 2+ (Negative); Nitrate Urine Negative (Negative); Protein Urine Trace (Negative); Specific Gravity, Urine 1.025 (1.005-1.030); Urine Appearance SL Hazy (CLEAR); Urine Color Yellow (Yellow); Urobilinogen Urine Norm (Negative); pH Urine 5 (5-7)
[2021-12-20 15:39] LABS: Add Urine Culture? Yes; Bacteria Urine 1+ /hpf; WBC Urine 25-40 /hpf (0-5)
[2021-12-20 15:54] LABS: Erythrocyte Sedimentation Rate 21 mm/hr (0-15)
[2021-12-21 15:03] LABS: Cyclic Citrullinated Peptide <16 UNITS
[2021-12-23 15:19] LABS: ANCA Screen NEGATIVE (NEGATIVE)
== END 2021-12-20 14:07 | disposition home or self-care (01) ==
PROVIDERS: PCP Family Medicine; Visit Provider Internal Medicine
DX: M25.559 Pain in unspecified hip (principal); M31.6 Other giant cell arteritis
CPT/HCPCS: 80053; 81001; 82550; 85025; 85651; 86036; 86140; 86200; 87077; 87086; 87186

== ENCOUNTER → 2022-01-05 10:04 | Outpatient (BNVA) | payer OTHER, SELFPAY | PROVIDERS: PCP Family Medicine; Visit Provider Family Medicine | DX: D64.9 Anemia, unspecified (principal); E78.2 Mixed hyperlipidemia; I10 Essential (primary) hypertension; Z79.890 Hormone replacement therapy | CPT/HCPCS: 80061; 82607; 84443 ==

== ENCOUNTER 2022-04-07 12:18 | Outpatient (CLI) | payer OTHER, SELFPAY ==
--- NOTE | 2022-04-07 13:03 | MM_ITS ---
WS: [id number] Bilateral screening 3D tomosynthesis digital mammogram, 04/07/2022 Clinical Data: screen Comparison: 02/24/2020, 07/02/2018, 01/01/2015, 03/04/2013, 02/29/2012, 12/05/2006. Findings: The breast parenchymal pattern shows heterogeneous density. No spiculated masses or clustered calcifi cations are seen. There are no secondary signs of carcinoma. There are calcifications in the [place] of small vessels. There are mole markers on both breasts. MM/[place] [id number] Impression: 1. Negative bilateral mammogram unchanged. 2. Recommend annual screening mammograms. BIRADS: 1-Negative FOLLOW UP: 1 Year Follow-up The CAD box car checker was used.
== END 2022-04-07 12:19 | disposition home or self-care (01) ==
LOC: RAD 12:18
PROVIDERS: PCP Family Medicine; Visit Provider Family Medicine
DX: Z12.31 Encounter for screening mammogram for malignant neoplasm of breast (principal)
CPT/HCPCS: 77063; 77067

== ENCOUNTER → 2022-05-02 11:30 | Outpatient (BNVA) | payer OTHER, SELFPAY | PROVIDERS: PCP Family Medicine; Visit Provider Internal Medicine | DX: M31.6 Other giant cell arteritis (principal); R32 Unspecified urinary incontinence; N18.9 Chronic kidney disease, unspecified; M79.641 Pain in right hand | CPT/HCPCS: 36415; 73120; 80053; 81001; 85025; 85651; 86140 ==

== ENCOUNTER → 2022-05-26 11:37 | Outpatient (BNVA) | payer OTHER, SELFPAY | PROVIDERS: PCP Family Medicine; Visit Provider Family Medicine | DX: E78.2 Mixed hyperlipidemia (principal); K21.9 Gastro-esophageal reflux disease without esophagitis; I10 Essential (primary) hypertension; E55.9 Vitamin D deficiency, unspecified; E53.8 Deficiency of other specified B group vitamins | CPT/HCPCS: 80053; 80061; 82306; 82607; 84443; 85025 ==

== ENCOUNTER → 2022-08-17 10:21 | Outpatient (BNVA) | payer OTHER, SELFPAY | PROVIDERS: PCP Family Medicine; Visit Provider Internal Medicine | DX: M25.50 Pain in unspecified joint (principal); M31.6 Other giant cell arteritis | CPT/HCPCS: 73620; 80053; 85025; 85651; 86140 ==

== ENCOUNTER 2022-09-21 18:55 | Inpatient (IN) | payer OTHER, SELFPAY ==
[2022-09-21] VITALS (11 sets, daily range): BP systolic 128–164; BP diastolic 76–91; PULSE 70–78; RESP 12–24; TEMP 36.7–36.8; O2SAT 92–96; BMI 38.2
--- NOTE | 2022-09-21 19:11 | W.ED.ABDPA2 ---
HPI - Abdominal Pain General: Chief Complaint: Abdominal Pain Stated Complaint: ABD Pain Time Seen by Provider: 09/21/22 19:10 History of Present Illness: 62-year-old female comes in today for complaints of right flank pain radiating to the right inguinal area. Patient reports having some diarrhea this morning and then this afternoon started having increasing pain and nausea and vomiting. Patient has a history of renal stones and this is similar to that pain. Patient has had a kidney removed in the past for donation. Patient denies any fever. Patient has a history of hypertension, asthma, depression and arthritis. Associated Symptoms: Reports diarrhea, nausea and vomiting Review of Systems General: Reports: 10 or more systems reviewed and unremarkable except in HPI and below Card: Denies: chest pain GI: Reports: abdominal pain, nausea, vomiting and diarrhea : Reports: flank pain Musc: Denies: neck pain or back pain PFSH ED PFSH: Medical History Acute CVA (cerebrovascular accident) Asthma Chronic kidney disease, stage 3 Current chronic use of systemic steroids Depression Dermatitis Gastroesophageal reflux History of melanoma Right arm - removed 11/2013. Right forearm - removed 08/2011. Temporal giant cell arteritis Ureterolithiasis Obstructing left proximal ureteral stone May 2020 leftComplication of associated pyelonephritis. Emergency stenting. 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 08/2011: Removed from right forearm. H/O oral surgery (~2013) Remove growth from mouth - benign. H/O: hysterectomy (12/11/07) LAVH/BSO. Dx: Uterine fibroids, Menorrhagia, Dysmenorrhea. Performed by Dr. Kelly at [facility] in [place], [place]. History of colonoscopy (~03/2015) Dr. Stewart Status post cystoscopy with ureteral stent placement [place] teeth extracted (~2004) Family History Grandfather Stroke Maternal grandfather Mother Hyperlipidemia Hypertension Father Heart disease Grandmother Heart disease Paternal grandmother Diabetes Paternal grandmother Hypertension Maternal grandmother Denies family history of Anesthesia complication Bleeding disorder Social History Smoking and tobacco status: never smoked Quit status (tobacco): has quit using tobacco Year quit tobacco: 1990 Second hand smoke exposure: No Alcohol intake: current Alcohol intake frequency: holidays/special occasions only Alcohol type: wine Substance/Drug Use: never Caregiver/support person: Yes Lives independently: Yes Marital status: service: No Current occupational status: employed Current gender identity: Female Special carmen needs: No Physical Exam Const: COMMON NORMALS: alert HENMT: COMMON NORMALS: normocephalic HEAD & SCALP: normocephalic MOUTH: Normal oral and palatal mucosa present Neck/C-Spine: COMMON NORMALS: full ROM Resp: COMMON NORMALS: normal respiratory effort and clear to auscultation bilaterally AUSCULTATION: clear to auscultation bilaterally Cardio: COMMON NORMALS: regular rate and regular rhythm RATE: regular rate RHYTHM: regular rhythm GI: COMMON NORMALS: Soft to palpation PALPATION: Yes Soft to palpation and Yes Tenderness to palpation present (GI) Details: RLQ and RUQ Back/Pelvis: COMMON NORMALS: thoracic and lumbar spine normal to inspection Extremity: COMMON NORMALS: normal to inspection and no pedal edema Neuro: SENSORIUM/ORIENTATION: Yes alert Skin: COMMON NORMALS: turgor normal GENERAL SKIN EXAM: turgor normal Course Vital Signs: Vital signs: Vital Signs Temperature 98.0 F 09/21/22 19:03 Pulse Rate 70 09/21/22 19:57 Respiratory Rate 12 09/21/22 19:57 Blood Pressure 164/91 09/21/22 19:57 Pulse Oximetry 92 09/21/22 19:57 Oxygen Delivery Me thod Room Air 09/21/22 19:03 MDM - Abdominal Pain Medical Decision Making 62-year-old female comes in today for complaints of right flank pain radiating to the right groin. Patient has a history of renal stone. Patient also reports history of kidney donation. Patient appears nontoxic, and in moderate pain. Vital signs are normal. Differential diagnosis includes but not limited to gastroenteritis, appendicitis, gallbladder disease, renal calculi, pyelonephritis. CBC noted mild elevation white count at 12,000. CMP had a creatinine 1.5. CT of the abdomen and pelvis noted mild right hydronephrosis with a 6 mm obstructing proximal right ureteral calculus. Patient appears nontoxic. Reviewed this patient with Dr. Elder, urologist. He agreed to admit patient with plans for treatment of obstructing ureteral stone in the morning. Discussed with Dr. Vasquez, attending ER physician who agreed to write for admission orders. Lab Data 09/21/22 19:44 09/21/22 19:44 Labs/Radiology: Radiology Impressions Abdomen/Pelvis CT 09/21/22 19:16 IMPRESSION: 1. Mild right hydronephrosis. 6 mm obstructing proximal right ureteral calculus, series 5, image 66. Findings are consistent with right obstructive uropathy. This is new when compared to CT abdomen and pelvis dated 03/25/2021. 2. Absent left kidney. Laboratory Results WBC 12.9 10^3/uL (4.0-10.0) H 09/21/22 19:44 RBC 4.20 10^6/uL (4.1-5.3) 09/21/22 19:44 Hgb 14.0 g/dL (11.5-15.3) 09/21/22 19:44 Hct 42.5 % (37.0-47.0) 09/21/22 19:44 MCV 101.2 fl (81-99) H 09/21/22 19:44 MCH 33.3 pg (28.0-34.0) 09/21/22 19:44 MCHC 32.9 g/dL (30.0-36.0) 09/21/22 19:44 RDW 13.2 % (12.1-15.1) 09/21/22 19:44 Plt Count 275 10^3/cmm (130-400) 09/21/22 19:44 MPV 10.5 fL (7.4-10.4) H 09/21/22 19:44 Neut % (Auto) 79.5 % 09/21/22 19:44 Lymph % (Auto) 13.1 % 09/21/22 19:44 [place] % (Auto) 6.2 % 09/21/22 19:44 Eos % (Auto) 0.3 % 09/21/22 19:44 Baso % (Auto) 0.4 % 09/21/22 19:44 Neut # (Auto) 10.26 10^3/uL (1.8-7.7) H 09/21/22 19:44 Lymph # (Auto) 1.7 10^3/uL (0.8-4.8) 09/21/22 19:44 [place] # (Auto) 0.8 10^3/uL (0.2-0.9) 09/21/22 19:44 Eos # (Auto) 0.0 10^3/uL (0.0-0.8) 09/21/22 19:44 Baso # (Auto) 0.1 10^3/uL (0.0-0.1) 09/21/22 19:44 Nucleated RBC % (auto) 0 % 09/21/22 19:44 Nucleated RBCs # 0.0 /100WBC 09/21/22 19:44 Sodium 138 mmol/L (136-145) 09/21/22 19:44 Potassium 4.3 mmol/L (3.5-5.1) 09/21/22 19:44 Chloride 100 mmol/L (98-107) 09/21/22 19:44 Carbon Dioxide 25 mmol/L (22-29) 09/21/22 19:44 Anion Gap 17.3 (5-19) 09/21/22 19:44 BUN 20 mg/dL (8-23) 09/21/22 19:44 Creatinine 1.5 mg/dL (0.5-0.9) H 09/21/22 19:44 GFR Calculation 35.4 mL/min (90-130) L 09/21/22 19:44 Glucose 112 mg/dL (65-115) 09/21/22 19:44 Calculated Osmolality 289 mOsm/kg (285-295) 09/21/22 19:44 Calcium 9.4 mg/dL (8.5-10.5) 09/21/22 19:44 Total Bilirubin 0.4 mg/dL (0.15-1.2) 09/21/22 19:44 AST 18 U/L (0-32) 09/21/22 19:44 ALT 13 U/L (0-33) 09/21/22 19:44 Alkaline Phosphatase 85 U/L (35-105) 09/21/22 19:44 Troponin T Baseline 8 ng/L (0-10) 09/21/22 19:44 Total Protein 7.8 g/dL (6.6-8.7) 09/21/22 19:44 Albumin 4.4 g/dL (3.5-5.2) 09/21/22 19:44 Globulin 3.4 g/dL (1.3-4.6) 09/21/22 19:44 Lipase 47 U/L (13-60) 09/21/22 19:44 EKG Data EKG 1: EKG interpretation date: 09/21/22 EKG interpretation time: 20:10 Interpretation: EKG shows a normal sinus rhythm with a regular rate at [address] elevation or ectopy is noted. No prior exam was available for comparison. Discharge Plan Discharge Patient Disposition: Admitted As Inpatient Clinical Impression: Right ureteral calculus Condition: Stable Coding Level of Care Code ED Post Graduate Intern for Michelle Redmond
--- NOTE | 2022-09-21 19:12 | ECG_ITS ---
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 Measurements Intervals [place] Rate: 66 P: 54 DC: 163 QRS: 32 QRSD: 83 T: 43 QT: 415 QTc: 435 Interpretive Statements SINUS RHYTHM No previous ECG available for comparison Electronically Signed On 09-22-2022 13:01:18 CDT by Mimi Conteh M.D. [id number]
--- NOTE | 2022-09-21 19:16 | CTR_ITS ---
PROCEDURE INFORMATION: Exam: CT Abdomen And Pelvis Without Contrast Exam date and time: 09/21/2022 8:14 PM Age: 62 years old Clinical indication: Abdominal pain; Right; Prior surgery; Surgery date: 6+ months; Surgery type: Left nephrectomy; Patient HX: C/O RT flank pain. ; Additional info: Right flank pain radiating rlq, HX of renal stones TECHNIQUE: Imaging protocol: Computed tomography of the abdomen and pelvis without contrast. Radiation optimization: All CT scans at this facility use at least one of these dose optimization techniques: automated exposure control; mA and/or kV adjustment per patient size (includes targeted exams where dose is matched to clinical indication); or iterative reconstruction. REPORTING DATA: Count of CT and Cardiac NM exams in prior 12 months: This patient has received 0 known CTs and 0 known cardiac nuclear medicine studies in the 12 months prior to the current study. COMPARISON: CT kidney stone [id number] 03/25/2021 2:01 PM RADIATION DOSE METRICS: Total DLP (mGy-cm): 934.23 FINDINGS: Lungs: Mild atelectasis versus fibrosis noted at the lung bases. Heart: 1.8 cm right pericardial cyst, unchanged. Diaphragm: There is a hiatal hernia noted. Liver: The liver is unremarkable in appearance. Gallbladder and bile ducts: No calcified gallstones in the gallbladder. No gallbladder wall thickening. No pericholecystic fluid. No biliary dilatation. Pancreas: Unremarkable. No ductal dilation. Spleen: No focal splenic lesion. No splenomegaly. Adrenal glands: The adrenal glands appear within normal limits. Kidneys and ureters: Mild right hydronephrosis. 6 mm obstructing proximal right ureteral calculus, series 5, image 66. Findings are consistent with right obstructive uropathy. Distal right ureter is unremarkable. Absent left kidney. Stomach and bowel: No acute gastric abnormality demonstrated. The small bowel is unremarkable as demonstrated. No acute abnormality/inflammatory change of the colon. Appendix: No evidence of appendicitis. Intraperitoneal space: No pneumoperitoneum. No significant fluid collection. Vasculature: The aorta is atherosclerotic. No aortic aneurysm. Lymph nodes: No pathologically enlarged lymph nodes. Urinary bladder: Unremarkable as visualized. Reproductive: Status post hysterectomy. Bones/joints: Unremarkable. No acute osseous abnormality. Soft tissues: The abdominal wall demonstrates a small umbilical hernia, containing only fat. CT/CT kidney stone [id number] IMPRESSION: 1. Mild right hydronephrosis. 6 mm obstructing proximal right ureteral calculus, series 5, image 66. Findings are consistent with right obstructive uropathy. This is new when compared to CT abdomen and pelvis dated 03/25/2021. 2. Absent left kidney.
[2022-09-21] MEDS: sodium chloride 0.9% 500 ML 999 ML IV (19:50)
[2022-09-21] MEDS: ondansetron 2 mg/ML SDV 2 mL 4 MG IVP (19:51)
[2022-09-21] MEDS: fentaNYL 50 mcg/mL INJ 2mL 100 MCG IVP (19:51)
[2022-09-21 20:00] LABS: Basophils # 0.1 10^3/uL (0.0-0.1); Basophils % 0.4 %; Eosinophils % 0.3 %; Hematocrit 42.5 % (37.0-47.0); Lymphocytes # 1.7 10^3/uL (0.8-4.8); Lymphocytes % 13.1 %; Mean Corpuscular HGB Conc 32.9 g/dL (30.0-36.0); Mean Corpuscular Hemoglobin 33.3 pg (28.0-34.0); Mean Corpuscular Volume 101.2 fl (81-99); Mean Platelet Volume 10.5 fL (7.4-10.4); Monocytes # 0.8 10^3/uL (0.2-0.9); Monocytes % 6.2 %; Neutrophils # 10.26 10^3/uL (1.8-7.7); Neutrophils % 79.5 %; Nucleated Red Blood Cells % 0 %; Platelet Count 275 10^3/cmm (130-400); Red Cell Distribution Width 13.2 % (12.1-15.1); White Blood Count 12.9 10^3/uL (4.0-10.0)
[2022-09-21 20:18] LABS: Alanine Aminotransferase 13 U/L (0-33); Albumin Level 4.4 g/dL (3.5-5.2); Alkaline Phosphatase 85 U/L (35-105); Anion Gap 17.3 (5-19); Aspartate Amino Transferase 18 U/L (0-32); Blood Urea Nitrogen 20 mg/dL (8-23); Calcium 9.4 mg/dL (8.5-10.5); Carbon Dioxide 25 mmol/L (22-29); Chloride 100 mmol/L (98-107); Globulin 3.4 g/dL (1.3-4.6); Glomerular Filtration Rate 35.4 mL/min (90-130); Glucose 112 mg/dL (65-115); Lipase 47 U/L (13-60); Osmolality Calculated 289 mOsm/kg (285-295); Potassium 4.3 mmol/L (3.5-5.1); Sodium 138 mmol/L (136-145); Total Bilirubin 0.4 mg/dL (0.15-1.2); Total Protein 7.8 g/dL (6.6-8.7)
[2022-09-21 20:20] LABS: Troponin(5th) Baseline 8 ng/L (0-10)
[2022-09-21] MEDS: morphine 4 mg/mL SDV 1 mL IVP ×2 (21:11→23:38)
--- NOTE | 2022-09-21 21:16 | ECG_ITS ---
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 Measurements Intervals [place] Rate: 72 P: 49 [place]: 155 QRS: 22 QRSD: 87 T: 44 QT: 399 QTc: 437 Interpretive Statements SINUS RHYTHM Compared to ECG 09/21/2022 20:01:46 No significant changes Electronically Signed On 09-22-2022 13:02:11 CDT by Mimi Conteh M.D. [email or web address]
--- NOTE | 2022-09-21 21:34 | PM.HP ---
Providers/Chief Complaint Admitting Physician: Jael Primary Care Provider: Maira Gilbert MD Chief Complaint: ABD Pain History of Present Illness Zeina Sawant is a 62 year old female known to me for UROLITHIASIS complicated by solitary kidney (donated) and CKD with baseline Cr around 1.2-1.5. Had endoscopic lithotripsy in 2020 for a 7mm ureteral stone. She failed to keep her appointment in September 2021 for routine follow-up KUB for surveillance of residual renal calculus. Presented with abrupt onset of severe RIGHT renal colicky pain that began abruptly today, without f/c. And with complaints of severe nausea and vomiting. Difficulty controlling the pain in the emergency department. CT: 6mm Right proximal ureteral stone with obstruction. Cr at [facility] ? decreased UO. Admitted for pain control and close observation b/c of risk with solitary right kidney Review of Systems Const: Reports: malaise; Denies: fever(s) or chills Eyes: Denies: change in vision or yellow eyes ENMT: Denies: hoarseness Card: Denies: chest pain or palpitations Resp: Denies: dyspnea or productive cough GI: Reports: abdominal pain, nausea and vomiting : Reports: flank pain; Denies: dysuria Musc: Denies: neck pain Skin/Breast: Denies: rash or jaundice Neuro: Denies: confusion or Slurred speech present Psych: Reports: anxiety (Related to her status medically) Endo: Denies: flushing [place]/Lymph: Denies: easy bruising or easy bleeding All/Imm: Denies: urticaria or acute wheezing Medications/Allergies Home Medications Medication Instructions Recorded Confirmed Last Taken Type cholecalciferol (vitamin D3) 100 2,000 unit PO BID 06/24/19 08/16/22 06/07/20 History mcg (4,000 unit) capsule telgywdkovia-klczcfjf-abucdb 1 tab PO DAILY 05/17/20 08/16/22 06/07/20 History tablet (Multivitamin 50 Plus tablet) aspirin 81 mg tablet,delayed 81 mg PO DAILY #30 tabs 05/20/20 08/16/22 06/06/20 Rx release cyanocobalamin (vitamin B-12) 2,500 mcg sublingual DAILY 09/03/20 08/16/22 Unknown History 2,500 mcg sublingual tablet (Vitamin B-12) albuterol sulfate 90 mcg/actuation 2 puff inhalation Q4H PRN 05/26/22 08/16/22 Unknown Rx aerosol inhaler (ProAir HFA) Shortness Of Breath #8.5 grams amlodipine 5 mg tablet 5 mg PO DAILY #90 tabs 05/26/22 08/16/22 Unknown Rx atorvastatin 20 mg tablet See Rx Instructions .Route 05/26/22 08/16/22 Unknown Rx .COMPLEX #30 tabs diclofenac sodium 1 % topical gel 2 g topical QID #100 grams 05/26/22 08/16/22 Unknown Rx estradiol 1 mg tablet 0.5 mg PO BID #90 tabs 05/26/22 08/16/22 Unknown Rx famotidine 20 mg tablet See Rx Instructions .Route 05/26/22 08/16/22 Unknown Rx .COMPLEX #60 tabs fluticasone fur. 200 mcg-umeclid 1 inh inhalation DAILY #60 ea 05/26/22 08/16/22 Unknown Rx 62.5 mcg-vilant 25 mcg inhalat.powder (Trelegy Ellipta) fluticasone propionate 50 See Rx Instructions .Route 05/26/22 08/16/22 Unknown Rx mcg/actuation nasal .COMPLEX #16 grams spray,suspension metoprolol succinate 25 mg See Rx Instructions .Route 05/26/22 08/16/22 Unknown Rx tablet,extended release 24 hr .COMPLEX #90 tabs sertraline 100 mg tablet See Rx Instructions .Route 05/26/22 08/16/22 Unknown Rx .COMPLEX #90 tabs folic acid 1 mg tablet 2 mg PO DAILY #180 tabs 08/16/22 08/16/22 Unknown Rx methotrexate sodium 2.5 mg tablet 12.5 mg PO .weekly #30 tabs 08/16/22 08/16/22 Unknown Rx cetirizine 10 mg capsule (Zyrtec) 10 mg PO DAILY #90 caps 09/06/22 Unknown Rx prednisone 5 mg tablet 5 mg PO DAILY 30 days #30 tabs 09/06/22 Unknown Rx etanercept 50 mg/mL (1 mL) 50 mg SUBCUT .qweek #4 mL 09/14/22 Unknown Rx subcutaneous syringe (Enbrel) Allergies Allergy/AdvReac Type Severity Reaction Status Date / Time No Known Allergies Allergy Verified 09/21/22 19:08 PFSH Acute PFSH: Medical History Acute CVA (cerebrovascular accident) Asthma Chronic kidney disease, stage 3 Current chronic use of systemic steroids Depression Dermatitis Gastroesophageal reflux History of melanoma Right arm - removed 11/2013. Right forearm - removed 08/2011. Temporal giant cell arteritis Ureterolithiasis Obstructing left proximal ureteral stone May 2020 leftComplication of associated pyelonephritis. Emergency stenting. 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 08/2011: Removed from right forearm. H/O oral surgery (~2013) Remove growth from mouth - benign. H/O: hysterectomy (12/11/07) LAVH/BSO. Dx: Uterine fibroids, Menorrhagia, Dysmenorrhea. Performed by Dr. Kelly at [facility] in [place], [place]. History of colonoscopy (~03/2015) Dr. Stewart Status post cystoscopy with ureteral stent placement [place] teeth extracted (~2004) Family History Grandfather Stroke Maternal grandfather Mother Hyperlipidemia Hypertension Father Heart disease Grandmother Heart disease Paternal grandmother Diabetes Paternal grandmother Hypertension Maternal grandmother Denies family history of Anesthesia complication Bleeding disorder Social History Smoking and tobacco status: never smoked Quit status (tobacco): has quit using tobacco Year quit tobacco: 1990 Second hand smoke exposure: No Alcohol intake: current Alcohol intake frequency: holidays/special occasions only Alcohol type: wine Substance/Drug Use: never Caregiver/support person: Yes Lives independently: Yes Marital status: service: No Current occupational status: employed Current gender identity: Female Special carmen needs: No Vitals/I&O/Wt Last Vital Signs Temp 98.0 F 09/21/22 19:03 Pulse 72 09/21/22 21:12 Resp 16 09/21/22 21:12 BP 149/84 09/21/22 21:12 Pulse Ox 92 09/21/22 21:12 O2 Del Method Room Air 09/21/22 19:03 Weight last 48 hrs Weight 230 lb Physical Exam Const: COMMON NORMALS: alert and well nourished GENERAL APPEARANCE: well kempt and well developed ORIENTATION/CONSCIOUSNESS: not confused HENMT: COMMON NORMALS: normocephalic HEAD & SCALP: normal to inspection and normocephalic Eye: COMMON NORMALS: conjunctivae normal and no scleral icterus CONJUNCTIVA: Yes conjunctivae normal Neck/C-Spine: GENERAL: Yes normal visual inspection Lymph: OTHER: No lymphedema Chest: OTHER: Normal chest movements Resp: COMMON NORMALS: normal respiratory effort EFFORT & INSPECTION: Yes able to speak in complete sentences, No labored and No Actively coughing Cardio: OTHER: Regular rhythm, tachycardic GI: OTHER: Right upper quadrant tenderness normoactive bowel sounds. No masses : OTHER: Bladder nondistended Right CVA tenderness. Back/Pelvis: OTHER: Right CVA tenderness Extremity: COMMON NORMALS: no clubbing, cyanosis or edema Neuro: COMMON NORMALS: no focal motor deficits SENSORIUM/ORIENTATION: Yes alert Psych: COMMON NORMALS: mental status grossly normal APPEARANCE: Yes well kempt ATTITUDE: Yes calm and Yes engaged Skin: COMMON NORMALS: no rashes or lesions noted and no jaundice Data 09/21/22 19:44 09/21/22 19:44 CT Abd/Pel: My impression: There is right proximal ureteral and renal pelvic dilation secondary to a 6 mm stone in the right proximal ureter. Some mild perirenal inflammatory changes. The ureter appears tortuous in the proximal aspect. A&P Assessment and plan (1) Right ureteral calculus: 6 mm obstructing right proximal ureteral stone and solitary kidney. Poorly controlled symptoms. History of obstructive pyelonephritis without evidence currently Creatinine preserved at baseline. Recommend surgical intervention Plan Hydrate, pain control, antiemetics assess for intervention Attestations Medical Necessity Statement*: Refractory pain related to stone. Increased risk due to solitary kidney which is obstructed, prior history of obstructive pyelonephritis. Coding Level of Care Code Acute Code for [facility] Diagnoses Right ureteral calculus N20.1
[2022-09-21 21:54] LABS: Troponin 5 2HR 8.24 ng/L (0-10)
[2022-09-21 21:58] LABS: Troponin 5 2HR Delta 0.24 ABS# (0-10)
[2022-09-21] MEDS: sodium chloride 0.9% 1,000 ML 75 ML IV (23:38)
[2022-09-22] VITALS (19 sets, daily range): BP systolic 95–182; BP diastolic 59–100; PULSE 81–114; RESP 15–22; TEMP 36.8–38.8; O2SAT 90–97
[2022-09-22 02:28] LABS: Add Urine Microscopic? YES; Bilirubin Urine Neg (Negative); Blood Urine 3+ (Negative); Glucose Urine UA Norm (Normal); Ketones Urine Negative (Negative); Leukocyte Esterase Urine 2+ (Negative); Nitrate Urine Positive (Negative); Protein Urine 1+ (Negative); Urine Appearance Cloudy (CLEAR); Urine Color Yellow (Yellow); Urobilinogen Urine Norm (Negative); pH Urine 6.5 (5-7)
[2022-09-22 02:29] LABS: Add Urine Culture? Yes; Bacteria Urine 3+ /hpf; RBC Urine 50-80 /hpf (0-2); WBC Urine TOO NUMEROUS TO CNT /hpf (0-5)
[2022-09-22] MEDS: ondansetron 2 mg/ML SDV 2 mL 4 MG IVP (02:30)
[2022-09-22] MEDS: morphine 4 mg/mL SDV 1 mL 2 MG IVP (02:46)
--- NOTE | 2022-09-22 07:26 | P.PN_ITS ---
Subjective Subjective: Urology Still with very difficult pain control status. Requiring large doses of frequent narcotics just to maintain steady state. I recommend cystoscopy and stent placement. We had originally talked about going after the stone but a urinalysis that was done after she was admitted showed evidence of an infection. She will start antibiotics this morning and have a stent placed today. Vitals/I&O/Wt Last Vital Signs Temp 98.4 F 09/22/22 04:57 Pulse 89 09/22/22 04:57 Resp 18 09/22/22 04:57 BP 182/100 09/22/22 04:57 Pulse Ox 95 09/22/22 04:57 O2 Del Method Nasal Cannula 09/22/22 04:57 O2 Flow Rate 2 09/22/22 04:57 09/21/22 09/22/22 09/22/22 22:59 06:59 14:59 Intake Total 45 / 45 Output Total 250 / 250 Balance -205 / -205 Weight last 48 hrs Weight 230 lb Physical Exam Narrative: Alert, lethargic from the pain medication. Responds appropriately. Oriented Obviously in discomfort. 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 Coding Level of Care Code Acute Code for [facility] Diagnoses Solitary kidney, acquired Z90.5 Urolithiasis N20.9
[2022-09-22 08:22] LABS: Basophils % 0.3 %; Eosinophils % 0.3 %; Hematocrit 38.9 % (37.0-47.0); Hemoglobin 12.3 g/dL (11.5-15.3); Lymphocytes # 1.3 10^3/uL (0.8-4.8); Lymphocytes % 9.1 %; Mean Corpuscular HGB Conc 31.6 g/dL (30.0-36.0); Mean Corpuscular Hemoglobin 32.3 pg (28.0-34.0); Mean Corpuscular Volume 102.1 fl (81-99); Monocytes % 7.2 %; Neutrophils % 82.7 %; Nucleated Red Blood Cells % 0 %; Platelet Count 237 10^3/cmm (130-400); Red Blood Count 3.81 10^6/uL (4.1-5.3); Red Cell Distribution Width 13.2 % (12.1-15.1); White Blood Count 13.7 10^3/uL (4.0-10.0)
[2022-09-22 08:46] LABS: Alanine Aminotransferase 11 U/L (0-33); Albumin Level 3.7 g/dL (3.5-5.2); Alkaline Phosphatase 81 U/L (35-105); Anion Gap 14.3 (5-19); Aspartate Amino Transferase 18 U/L (0-32); Blood Urea Nitrogen 24 mg/dL (8-23); Calcium 8.7 mg/dL (8.5-10.5); Carbon Dioxide 25 mmol/L (22-29); Chloride 105 mmol/L (98-107); Glomerular Filtration Rate 25.4 mL/min (90-130); Glucose 108 mg/dL (65-115); Lactate (Lactic Acid level) 1.5 mmol/L (0.5-2.2); Osmolality Calculated 295 mOsm/kg (285-295); Potassium 4.3 mmol/L (3.5-5.1); Sodium 140 mmol/L (136-145); Total Bilirubin 0.4 mg/dL (0.15-1.2); Total Protein 6.7 g/dL (6.6-8.7)
--- NOTE | 2022-09-22 09:42 | USCV_ITS ---
Zeina Sawant Age: 62 Gender: F : 1960 Exam Date: 09/22/2022 10:27 Ordering Phys: Jasper Beasley MD Technologist: RUBY Exam Location: [facility] Indication: tia Risk Factors: Previous Vascular Surgery: Right Brachial BP: / Left Brachial BP: / Right Left Velocity (cm/s) Spectral Plaque Velocity (cm/s) Spectral Plaque Syst/Diast Broadening Syst/Diast Broadening 93.70/ 19.80 Prox CCA 87.10 / 18.70 99.20/ 22.10 Mid CCA 95.90 / 19.25 90.40/ 23.20 Distal CCA 81.60 / 15.40 78.30/ 22.10 Prox ICA 84.90 / 13.20 81.60/ 20.90 Mid ICA 95.90 / 18.70 102.50/29.80 Distal ICA 99.20 / 34.20 119.10 ECA 133.40 1.03 ICA/CCA 1.05 Antegrade Vertebral Antegrade 76.10/ 24.30 cm/s 78.30/ 18.70 cm/s Bi Subclavian Bi 144.4 125.7 0 0 FINDINGS Comparison:. 05/18/20 No significant elevation of systolic or diastolic velocities. Waveforms are normal. Minimal carotid atherosclerosis. Antegrade vertebral arteries. CONCLUSIONS Bilateral ICA stenosis less than 50%. No interval change in stenosis since prior exam. Dr. Dawn Mehta DO (Electronically Signed) Final Date: 22 September 2022 12:34 S
[2022-09-22 09:56] LABS: Glucose Point of Care 108 mg/dL (70-110)
--- NOTE | 2022-09-22 10:30 | PC.CHAP ---
Pastoral Care Encounter/Spiritual Assessment Type of Contact [] Declined front office medical assistant visit [] Patient/Family/Request visit [] Outpatient visit [] Follow-up visit [] Physician referral [] Code/Alert [] Routine visit [] Staff referral [] Actively dying [] Patient sleeping [] Family support [] [] Out of room [] Palliative care [] [] Receiving care in room [] Pre-surgical visit [] Trauma [] Long length of stay [] ICU visit [x] Other: desmissed +1 Relational/Emotional Strength [] Patient feels connected with others/family/visitors/staff [] Distress [] Loneliness/isolation [] Abandonment Spirituality of Patient [] Person of Gisell [] Attends Jew of their Gisell [] Believes in Prayer [] Reads Bible or Taoism materials [] There are Spiritual issues to be addressed Time Study Observer Interventions [] Prayer [] Active listening [] Non-anxious presence [] Spiritual/emotional support [] Crisis/trauma care [] Spiritual counseling [] Bereavement support [] Provided bereavement packet [] Provided Bible/devotional materials [] Provided toy/stuffed animal, coloring book to patient or family member [] Provided Communion [] Anointing/[place] [] Salvation [] Completed spiritual assessment [] Other: Impact on Illness or Injury [] Angry [] Fearful [] Anxious [] Often cries [] Exhaustion [] Unable to work [] Unable to attend muslim [] Unable to walk/stand [] Unable to read [] Unable to drive [] Unable to eat/drink [] Unable to sleep [] Unable to be with family [] Patient intubated [] Other: Summary desmissed +1 Time spent with patient 5 mins
[2022-09-22] MEDS: cefTRIAXone 2,000 MG in sodium chloride 0.9% (plus) 50 ML 100 MG IV ×2 (10:40→19:20)
--- NOTE | 2022-09-22 11:20 | P.CONIM_ITS ---
Providers/Reason For Consult Consulting Physician/Specialty*: Perioperative management Reason for Consult*: Hospitalist Attending Physician: Carlton Elder MD Primary Care Provider: Maira Gilbert MD History of Present Illness History of Present Illness Zeina Sawant is a 62 year old female who has solitary kidney with kidney stones, patient said from UTI, she also has chronic kidney disease, she is going for ureteral stent placement with Dr. Elder, patient is stating that with last stent removal which was roughly few years ago she suffered from a stroke however she did not receive any tPA patient is stating that she recovered from stroke and did not experience any residual deficits. Patient received fentanyl and morphine she is drowsy not able to recall events appropriately. Labs and CBC reviewed along BMP. Worsening of creatinine noted She is currently on ceftriaxone CT abdomen pelvis consistent with mild right hydronephrosis extremities are obstructing right ureteral stone Review of Systems Const: Denies: fever(s) Eyes: Denies: change in vision ENMT: Denies: throat pain Card: Denies: chest pain Resp: Denies: dyspnea GI: Denies: abdominal pain : Denies: dribbling Musc: Denies: neck pain Skin/Breast: Denies: changing lesions Neuro: Denies: headache(s) Psych: Reports: anxiety Medications/Allergies Home Medications Medication Instructions Recorded Confirmed Last Taken Type isawcszpgxep-xrgrqney-fxdmsx 1 tab PO DAILY 05/17/20 09/22/22 06/07/20 History tablet (Multivitamin 50 Plus tablet) aspirin 81 mg tablet,delayed 81 mg PO DAILY #30 tabs 05/20/20 09/22/22 06/06/20 Rx release cyanocobalamin (vitamin B-12) 2,500 mcg sublingual DAILY 09/03/20 09/22/22 Unknown History 2,500 mcg sublingual tablet (Vitamin B-12) albuterol sulfate 90 mcg/actuation 2 puff inhalation Q4H PRN 05/26/22 09/22/22 Unknown Rx aerosol inhaler (ProAir HFA) Shortness Of Breath #8.5 grams amlodipine 5 mg tablet 5 mg PO DAILY #90 tabs 05/26/22 09/22/22 Unknown Rx diclofenac sodium 1 % topical gel 2 g topical QID #100 grams 05/26/22 09/22/22 Unknown Rx estradiol 1 mg tablet 0.5 mg PO BID #90 tabs 05/26/22 09/22/22 Unknown Rx folic acid 1 mg tablet 2 mg PO DAILY #180 tabs 08/16/22 09/22/22 Unknown Rx methotrexate sodium 2.5 mg tablet 12.5 mg PO .weekly #30 tabs 08/16/22 09/22/22 Unknown Rx cetirizine 10 mg capsule (Zyrtec) 10 mg PO DAILY #90 caps 09/06/22 09/22/22 Unknown Rx prednisone 5 mg tablet 5 mg PO DAILY 30 days #30 tabs 09/06/22 09/22/22 Unknown Rx etanercept 50 mg/mL (1 mL) 50 mg SUBCUT .qweek #4 mL 09/14/22 09/22/22 Unknown Rx subcutaneous syringe (Enbrel) adalimumab 40 mg/0.8 mL 40 mg SUBCUT Q14D 09/22/22 09/22/22 Unknown History subcutaneous pen kit (Humira Pen) atorvastatin 20 mg tablet 20 mg PO DAILY 09/22/22 09/22/22 Unknown History cholecalciferol (vitamin D3) 50 50 mcg PO DAILY 09/22/22 09/22/22 Unknown Histo ry mcg (2,000 unit) capsule (Vitamin D3) famotidine 20 mg tablet 20 mg PO BID 09/22/22 09/22/22 Unknown History fluticasone propionate 50 2 spray intranasal DAILY 09/22/22 09/22/22 Unknown History mcg/actuation nasal spray,suspension metoprolol succinate 25 mg 25 mg PO BEDTIME 09/22/22 09/22/22 Unknown History tablet,extended release 24 hr sertraline 100 mg tablet 100 mg PO DAILY 09/22/22 09/22/22 Unknown History Allergies Allergy/AdvReac Type Severity Reaction Status Date / Time No Known Allergies Allergy Verified 09/22/22 08:42 Current Medications Generic Name Dose Route Start Last Admin Trade Name Freq PRN Reason Stop Dose Admin Sodium Chloride 1,000 mls @ 125 mls/hr 09/21/22 23:15 09/21/22 23:38 Sodium Chloride 0.9% IV 75 mls/hr .Q8H FRANCISCO Administration Ceftriaxone Sodium 2,000 mg/ 50 mls @ 100 mls/hr 09/22/22 07:35 09/22/22 10:40 Sodium Chloride IV 100 mls/hr Q12H FRANCISCO Administration Protocol Ondansetron HCl 4 mg 09/21/22 23:08 09/22/22 02:30 Ondansetron 2 Mg/Ml Sdv 2 Ml IVP 4 mg Q6H PRN Administration NAUSEA AND VOMITING PFSH Acute PFSH: Medical History Acute CVA (cerebrovascular accident) Asthma Chronic kidney disease, stage 3 Current chronic use of systemic steroids Depression Dermatitis Gastroesophageal reflux History of melanoma Right arm - removed 11/2013. Right forearm - removed 08/2011. Right ureteral calculus Temporal giant cell arteritis Ureterolithiasis Obstructing left proximal ureteral stone May 2020 leftComplication of associated pyelonephritis. Emergency stenting. 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 08/2011: Removed from right forearm. H/O oral surgery (~2013) Remove growth from mouth - benign. H/O: hysterectomy (12/11/07) LAVH/BSO. Dx: Uterine fibroids, Menorrhagia, Dysmenorrhea. Performed by Dr. Kelly at [facility] in [place], [place]. History of colonoscopy (~03/2015) Dr. Stewart Status post cystoscopy with ureteral stent placement [place] teeth extracted (~2004) Family History Grandfather Stroke Maternal grandfather Mother Hyperlipidemia Hypertension Father Heart disease Grandmother Heart disease Paternal grandmother Diabetes Paternal grandmother Hypertension Maternal grandmother Denies family history of Anesthesia complication Bleeding disorder Social History Smoking and tobacco status: never smoked Quit status (tobacco): has quit using tobacco Year quit tobacco: 1990 Second hand smoke exposure: No Alcohol intake: current Alcohol intake frequency: holidays/special occasions only Alcohol type: wine Substance/Drug Use: never Caregiver/support person: Yes Lives independently: Yes Marital status: service: No Current occupational status: employed Current gender identity: Female Special carmen needs: No Vitals/I&O/Wt Last Vital Signs Temp 98.3 F 09/22/22 07:52 Pulse 102 H 09/22/22 07:52 Resp 16 09/22/22 07:52 BP 136/75 09/22/22 07:52 Pulse Ox 92 09/22/22 07:52 O2 Del Method Nasal Cannula 09/22/22 07:52 O2 Flow Rate 2 09/22/22 04:57 09/21/22 09/22/22 09/22/22 22:59 06:59 14:59 Intake Total 45 / 45 Output Total 250 / 250 Balance -205 / -205 Weight last 48 hrs Weight 104.326 kg Physical Exam Narrative: Patient is euvolemic N.p.o. Drowsy because of opiate effect Currently on room air GCS 15 Nonfocal neuro exam Patient was able to walk from the bathroom towards her bed Fatigued and lethargic S1, S2 Abdomen soft Nonfocal neuro exam Data 09/22/22 08:11 09/22/22 08:11 A&P Assessment and plan (1) Temporal giant cell arteritis: (2) Post-menopause on HRT (hormone replacement therapy): (3) Depression: (4) Gastroesophageal reflux: (5) Obstructive uropathy: (6) Hemorrhoids: (7) Asthma: Qualifiers: Asthma severity: mild Asthma persistence: unspecified Asthma complication type: unspecified Qualified Code(s): J45.909 - Unspecified asthma, uncomplicated (8) Urinary incontinence: Qualifiers: Urinary Incontinence type: mixed stress and urge incontinence Qualified Code(s): N39.46 - Mixed incontinence (9) CKD (chronic kidney disease): Plan Patient suffered from stroke right middle cerebral artery with her stent removal in 2020 she was given tPA by Dr. Durand, at that point she was discharged home no significant residual weakness was noted after tPA that was given in the ICU postoperatively Head MRI did show subacute infarct right louie radiata, it was consistent with ischemic stroke, echo unremarkable EF 57% head MRI showed no significant stenosis or occlusion Patient has finished the work-up no need of preoperative work-up at this point The etiology of ischemic stroke was not identified, currently EKG shows sinus rhythm However this should not delay her procedure time today I will closely follow-up Acute on chronic kidney disease: Related to UTI Despite improvement after stent placement for obstructive uropathy intervention Patient is independent lives alone at home She is full code She can have regular diet after her surgery We can start DVT prophylaxis as well Consult Attestations Medical Necessity Statement: As per urology Diagnoses Temporal giant cell arteritis M31.6 Post-menopause on HRT (hormone replacement therapy) Z79.890 Depression F32.9 Gastroesophageal reflux K21.9 Obstructive uropathy N13.9 Hemorrhoids K64.9 Asthma J45.909 Asthma severity: mild Asthma persistence: unspecified Asthma complication type: unspecified Urinary incontinence N39.46 Urinary Incontinence type: mixed stress and urge incontinence CKD (chronic kidney disease) N18.9
[2022-09-22] MEDS: sodium chloride 0.9% 1,000 ML 30 ML IV (12:41)
--- NOTE | 2022-09-22 12:57 | P.ANESASSM_ITS ---
Pre-Anesthetic Assessment Height/Weight: Height 1.65 m Weight 104.326 kg Temp Pulse Resp BP Pulse Ox O2 Del Method O2 Flow Rate 102 F H 114 H 20 H 107/65 93 Nasal Cannula 3 09/22/22 12:31 09/22/22 12:31 09/22/22 12:31 09/22/22 12:31 09/22/22 12:31 09/22/22 12:31 09/22/22 12:31 Operation Date: 09/22/22 13:20 Proposed Procedures p Cystoscopy(Not Applicable) - Carlton Elder MD Operation Date: 09/22/22 13:00 Proposed Procedures p Cystoscopy(Not Applicable) - Carlton Elder MD s Retrograde Pyelogram(Not Applicable) - Carlton Elder MD s Ureteroscopy(Right) - Carlton Elder MD s Laser Lithotripsy(Right) - MD dinesh Lopez Ureteral Stent Placement(Right) - Carlton Elder MD Familial anesthetic complications: none Was Beta Ronn taken within 24 hours: N/A Was Clonidine taken within 24 hours: N/A Social No alcohol and No tobacco Exam alert, oriented x 3, clear to auscultation bilaterally and regular rate & rhythm Airway Submandibular: within normal limits Cervical ROM: within normal limits Mallampati: Class II Dentition: full Pulmonary Asthma CV/HEM Anemia and Hypertension Chronic Renal Insufficiency GI Gastroesophageal Reflux Disease Metabolic Morbid Obesity Chronic steroid Neuropsych Anxiety, Cerebrovascular Accident and Depression Anesthetic Plan ASA status: 3 Anesthesia: General Medications/Allergies Home Medications Medication Instructions Recorded Confirmed Last Taken Type avflylxzdcvt-rhcyyrvv-wvxiyt 1 tab PO DAILY 05/17/20 09/22/22 06/07/20 History tablet (Multivitamin 50 Plus tablet) aspirin 81 mg tablet,delayed 81 mg PO DAILY #30 tabs 05/20/20 09/22/22 06/06/20 Rx release cyanocobalamin (vitamin B-12) 2,500 mcg sublingual DAILY 09/03/20 09/22/22 Unknown History 2,500 mcg sublingual tablet (Vitamin B-12) albuterol sulfate 90 mcg/actuation 2 puff inhalation Q4H PRN 05/26/22 09/22/22 Unknown Rx aerosol inhaler (ProAir HFA) Shortness Of Breath #8.5 grams amlodipine 5 mg tablet 5 mg PO DAILY #90 tabs 05/26/22 09/22/22 Unknown Rx diclofenac sodium 1 % topical gel 2 g topical QID #100 grams 05/26/22 09/22/22 U nknown Rx estradiol 1 mg tablet 0.5 mg PO BID #90 tabs 05/26/22 09/22/22 Unknown Rx folic acid 1 mg tablet 2 mg PO DAILY #180 tabs 08/16/22 09/22/22 Unknown Rx methotrexate sodium 2.5 mg tablet 12.5 mg PO .weekly #30 tabs 08/16/22 09/22/22 Unknown Rx cetirizine 10 mg capsule (Zyrtec) 10 mg PO DAILY #90 caps 09/06/22 09/22/22 Unknown Rx prednisone 5 mg tablet 5 mg PO DAILY 30 days #30 tabs 09/06/22 09/22/22 Unknown Rx etanercept 50 mg/mL (1 mL) 50 mg SUBCUT .qweek #4 mL 09/14/22 09/22/22 Unknown Rx subcutaneous syringe (Enbrel) adalimumab 40 mg/0.8 mL 40 mg SUBCUT Q14D 09/22/22 09/22/22 Unknown History subcutaneous pen kit (Humira Pen) atorvastatin 20 mg tablet 20 mg PO DAILY 09/22/22 09/22/22 Unknown History cholecalciferol (vitamin D3) 50 50 mcg PO DAILY 09/22/22 09/22/22 Unknown History mcg (2,000 unit) capsule (Vitamin D3) famotidine 20 mg tablet 20 mg PO BID 09/22/22 09/22/22 Unknown History fluticasone propionate 50 2 spray intranasal DAILY 09/22/22 09/22/22 Unknown History mcg/actuation nasal spray,suspension metoprolol succinate 25 mg 25 mg PO BEDTIME 09/22/22 09/22/22 Unknown History tablet,extended release 24 hr sertraline 100 mg tablet 100 mg PO DAILY 09/22/22 09/22/22 Unknown History Allergies Allergy/AdvReac Type Severity Reaction Status Date / Time No Known Allergies Allergy Verified 09/22/22 08:42 Current Medications Generic Name Dose Route Start Last Admin Trade Name Freq PRN Reason Stop Dose Admin Sodium Chloride 1,000 mls @ 125 mls/hr 09/21/22 23:15 09/21/22 23:38 Sodium Chloride 0.9% IV 75 mls/hr .Q8H FRANCISCO Administration Ceftriaxone Sodium 2,000 mg/ 50 mls @ 100 mls/hr 09/22/22 07:35 09/22/22 10 :40 Sodium Chloride IV 100 mls/hr Q12H FRANCISCO Administration Protocol Sodium Chloride 1,000 mls @ 30 mls/hr 09/22/22 12:30 09/22/22 12:41 Sodium Chloride 0.9% IV 09/23/22 12:29 30 mls/hr .Q24H FRANCISCO Administration Ondansetron HCl 4 mg 09/21/22 23:08 09/22/22 02:30 Ondansetron 2 Mg/Ml Sdv 2 Ml IVP 4 mg Q6H PRN Administration NAUSEA AND VOMITING PFSH Anesthesia Medical History Acute CVA (cerebrovascular accident) Asthma Chronic kidney disease, stage 3 Current chronic use of systemic steroids Depression Dermatitis Gastroesophageal reflux History of melanoma Right arm - removed 11/2013. Right forearm - removed 08/2011. Right ureteral calculus Temporal giant cell arteritis Ureterolithiasis Obstructing left proximal ureteral stone May 2020 leftComplication of associated pyelonephritis. Emergency stenting. 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 08/2011: Removed from right forearm. H/O oral surgery (~2013) Remove growth from mouth - benign. H/O: hysterectomy (12/11/07) LAVH/BSO. Dx: Uterine fibroids, Menorrhagia, Dysmenorrhea. Performed by Dr. Kelly at [facility] in [place], [place]. History of colonoscopy (~03/2015) Dr. Stewart Status post cystoscopy with ureteral stent placement [place] teeth extracted (~2004) Family History Grandfather Stroke Maternal grandfather Mother Hyperlipidemia Hypertension Father Heart disease Grandmother Heart disease Paternal grandmother Diabetes Paternal grandmother Hypertension Maternal grandmother Denies family history of Anesthesia complication Bleeding disorder Social History Smoking and tobacco status: never smoked Quit status (tobacco): has quit using tobacco Year quit tobacco: 1990 Second hand smoke exposure: No Alcohol intake: current Alcohol intake frequency: holidays/special occasions only Alcohol type: wine Substance/Drug Use: never Caregiver/support person: Yes Lives independently: Yes Marital status: service: No Current occupational status: employed Current gender identity: Female Special carmen needs: No Data Anesthesia 09/22/22 08:11 09/22/22 08:11 Short CBC 09/21/22 09/22/22 Range/Units 19:44 08:11 WBC 12.9 H 13.7 H (4.0-10.0) 10^3/uL Hgb 14.0 12.3 (11.5-15.3) g/dL Hct 42.5 38.9 (37.0-47.0) % MCV 101.2 H 102.1 H (81-99) fl Plt Count 275 237 (130-400) 10^3/cmm Neut % (Auto) 79.5 82.7 % Neut # (Auto) 10.26 H 11.30 H (1.8-7.7) 10^3/uL BMP 09/21/22 09/22/22 19:44 08:11 Sodium 138 140 Potassium 4.3 4.3 Chloride 100 105 Carbon Dioxide 25 25 BUN 20 24 H Creatinine 1.5 H 2.0 H Glucose 112 108 Calcium 9.4 8.7 Cardiac Enzymes 09/21/22 09/21/22 Range/Units 19:44 21:32 Troponin T Baseline 8 (0-10) ng/L Troponin T 120 Minute 8.24 (0-10) ng/L Delta Troponin T 0.24 (0-10) ABS# Liver Function 09/21/22 09/22/22 Range/Units 19:44 08:11 Total Bilirubin 0.4 0.4 (0.15-1.2) mg/dL AST 18 18 (0-32) U/L ALT 13 11 (0-33) U/L Alkaline Phosphatase 85 81 (35-105) U/L Albumin 4.4 3.7 (3.5-5.2) g/dL Urine 09/22/22 Range/Units 02:00 Urine Color Yellow (Yellow) Urine Appearance Cloudy A (CLEAR) Urine pH 6.5 (5-7) Ur Specific [place] 1.010 (1.005-1.030) Urine Protein 1+ H (Negative) Urine Glucose (UA) Norm (Normal) Urine Ketones Negative (Negative) Urine Nitrate Positive H (Negative) Urine Bilirubin Neg (Negative) Ur Leukocyte Esterase 2+ H (Negative) Urine RBC 50-80 H (0-2) /hpf Urine WBC Too numerous to cnt H (0-5) /hpf Cardiac Studies: Echocardiogram Ultrasound 05/18/20
--- NOTE | 2022-09-22 12:59 | PM.MISC ---
Miscellaneous Note Note: Change of status Labs show increasing white count, normal lactate. Creatinine has increased to 2.0. Developed fever and tachycardia. Reviewed with the patient that given the new evidence of infection and progressive clinical symptoms would recommend stenting only. Might have to do ureteroscopy in order to bypass the stone but hopefully not. Patient agreed to follow through as recommended.
--- NOTE | 2022-09-22 13:17 | P.OP_ITS ---
Operative Report Date of procedure: September 22, 2022 Pre-op diagnosis: RIGHT obstructive pyelonephritis SOLITARY right Post-op diagnosis: RIGHT obstructive pyelonephritis SOLITARY right Procedure done: 1. Cystoscopy, RIGHT: Ureteral stent placement Implants: Right ureteral stent: 7 [place] by 26 cm double-pigtail without string Specimens removed/disposition: None Pathology: None Surgeon: Jael Estimated blood loss: Minimal Urine output: Not measured Complications: None Findings: Anesthesia: General Condition: Stable Disposition: PACU Intraoperative findings: * Decreased hydronephrosis on minimal volume retrograde pyelogram confirming anatomy in the pyelocalyceal system. * Significant amount of purulent material drained with passage of wire and stent * 7 [place] by 26 cm double-pigtail stent left indwelling * She did experience some very transient hypotension during the procedure which responded well to albumin vasopressin volume replacement in general. Brief History: This is a Jese is a very pleasant 62-year-old white female with a history of urolithiasis and remote history of struct of pyelonephritis. She was admitted through the emergency department last night with complaints of severe right renal colicky type symptoms and was found to have a 6 mm right proximal ureteral stone further complicated by history of solitary right kidney having donated her left kidney for transplantation purposes. White count was minimally elevated. There was a delay in obtaining a urine specimen until very early this morning and it demonstrated UTI. Antibiotics were initiated. Labs repeated. Lactate showed no abnormality. Hospitalist service was consulted for medical management and assistance with her treatment. Prior to identifying the urine the plan was to try to definitively treat the stone with cystoscopy and ureteroscopy with laser lithotripsy but once it was clear that she had infection plans were changed to urgent cystoscopy and right ureteral stent placement. We did review the possibility of need for percutaneous nephrostomy/antegrade stent placement for inability to access the upper tract from a retrograde perspective. Hopefully that will not be the case given the fact that her symptoms started yesterday. Procedure: After urgent evaluation examination and obtaining of informed consent she was taken to the operating suite on 09/22/2022 where general anesthesia was administered without difficulty after appropriate timeout was performed, SCDs confirmed to be functioning, preoperative antibiotics administered, beta-bo protocol confirmed. Prepped and draped in usual sterile fashion in dorsolithotomy position pain careful attention to avoiding pressure points. 21 [place] cystoscope with 30 degree lens was introduced into the urethral meatus and advanced into the bladder without difficulty. The bladder was systematically examined. No stones were seen. Bladder did not demonstrate significant inflammatory changes consistent with infection. A flexible tip guidewire was then advanced up the left ureter bypassing the stone curling in the general area of the upper pole calyx. An open-ended ureteral catheter was passed over the guidewire and the guidewire removed. Approximately 1 cc of contrast was injected to confirm anatomy of the renal pelvis to make sure the stent was in appropriate position. There was a significant improvement in the hydronephrosis from the time of the CT scan. The wire was then repassed and the cystoscope backloaded over the guidewire. A 7 [place] by 26 cm double-pigtail stent was advanced over the guidewire through the cystoscope into appropriate position as confirmed via fluoroscopy and cystoscopy. Stent was confirmed to be draining significant amount of purulent material. Bladder was drained with a 16 [place] Vera catheter and the procedure was completed. She tolerated procedure well without complications and was awakened in the operating room and returned to PACU in stable condition. PLANS: 1. Maintain stent for least a week for adequate drainage for obstructive pyelonephritis and then review definitive treatment options. 2. Hospitalist assistance with medical management.
--- NOTE | 2022-09-22 13:30 | SC_ITS ---
WS: [id number] [place] [facility] REASON FOR EXAM: ureteral stone FINDINGS: Retrograde wire and catheter cannulation of the right ureter and renal collecting system. Injection of contrast demonstrates mild hydronephrosis with narrowing of the ureteral pelvic junction . Previously demonstrated ureteral pelvic junction calculus is no longer identified. [facility] [place] [facility] IMPRESSION: Right retrograde ureteral pyelogram as above.
--- NOTE | 2022-09-22 14:57 | ANE.PACU2 ---
Inpatient post-anesthesia follow up: Airway intact: Yes Vital signs: Temperature 99.0 F Pulse Rate 95 Respiratory Rate 21 Blood Pressure 97/62 Pulse Oximetry 93 Oxygen Delivery Me thod Nasal Cannula Oxygen Flow Rate 3 Fraction of Inspir ed Oxygen Hydration adequate: Yes Nausea and vomiting: No Pain level: 2 Mental status: Baseline
[2022-09-22] MEDS: sodium chloride 0.9% 1,000 ML 125 ML IV (20:51)
[2022-09-23] VITALS (7 sets, daily range): BP systolic 132–153; BP diastolic 73–83; PULSE 66–88; RESP 16–22; TEMP 36.6–36.9; O2SAT 90–94
[2022-09-23 04:15] LABS: Basophils % 0.1 %; Eosinophils % 0.1 %; Hematocrit 38.9 % (37.0-47.0); Lymphocytes # 0.7 10^3/uL (0.8-4.8); Mean Corpuscular HGB Conc 30.8 g/dL (30.0-36.0); Mean Corpuscular Hemoglobin 31.8 pg (28.0-34.0); Mean Corpuscular Volume 103.2 fl (81-99); Mean Platelet Volume 10.7 fL (7.4-10.4); Monocytes # 0.3 10^3/uL (0.2-0.9); Monocytes % 1.8 %; Neutrophils % 93.5 %; Nucleated Red Blood Cells % 0 %; Platelet Count 233 10^3/cmm (130-400); Red Blood Count 3.77 10^6/uL (4.1-5.3); Red Cell Distribution Width 13.3 % (12.1-15.1); White Blood Count 17.1 10^3/uL (4.0-10.0)
[2022-09-23 04:32] LABS: Blood Urea Nitrogen 22 mg/dL (8-23); Calcium 8.5 mg/dL (8.5-10.5); Carbon Dioxide 23 mmol/L (22-29); Chloride 105 mmol/L (98-107); Glomerular Filtration Rate 32.9 mL/min (90-130); Glucose 153 mg/dL (65-115); Osmolality Calculated 296 mOsm/kg (285-295); Sodium 140 mmol/L (136-145)
[2022-09-23 04:33] LABS: Anion Gap 16.5 (5-19); Potassium 4.5 mmol/L (3.5-5.1)
[2022-09-23] MEDS: sodium chloride 0.9% 1,000 ML 125 ML IV ×3 (04:56→21:16)
[2022-09-23] MEDS: cefTRIAXone 2,000 MG in sodium chloride 0.9% (plus) 50 ML 100 MG IV ×2 (09:59→20:24)
--- NOTE | 2022-09-23 10:41 | PM.PN ---
Subjective Subjective: Urology follow-up: Postop day #1 urgent right ureteral stent placement and solitary kidney for obstructive pyelonephritis She has remained afebrile overnight. Kidney at times. Hemodynamically stable otherwise. Good oxygenation White count: 17.1, up from preop value Creatinine: Decreased to 1.6 post stent placement Glucose was 153 Feels much better today. Denies any significant pain Vitals/I&O/Wt Last Vital Signs Temp 98.5 F 09/23/22 07:52 Pulse 84 09/23/22 07:52 Resp 18 09/23/22 07:52 BP 136/78 09/23/22 07:52 Pulse Ox 90 09/23/22 07:52 O2 Del Method Room Air 09/23/22 07:52 O2 Flow Rate 1.5 09/22/22 20:00 09/22/22 09/23/22 09/23/22 22:59 06:59 14:59 Intake Total 1580 / 2180 1400 / 3580 480 / 480 Output Total 425 / 425 900 / 1325 Balance 1155 / 1755 500 / 2255 480 / 480 Weight last 48 hrs Weight 230 lb Physical Exam Narrative: Alert and oriented, no acute distress Pleasant and cooperative throughout exam Respiratory, unlabored, no wheezing Normal chest movements Extremity good range of motion Normal mental status with normal cognition Urinary Catheter Management: Vera: Cath Placed During This Visit: no Reason for Continuing Indwelling Catheter: Other Data 09/23/22 03:55 09/23/22 03:55 Micro: Microbiology 09/22/22 02:00 Urine Culture - Preliminary Urine,Clean Catch Gram Negative Rods 09/23/22 09:29 Blood Culture - Preliminary Blood SPECIMEN COLLECTED 09/23/22 09:19 Blood Culture - Preliminary Blood SPECIMEN COLLECTED A&P Assessment and plan (1) Right ureteral calculus: Status post urgent stenting doing well much improved clinical picture (2) Solitary kidney, 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 She does still appear to have a small punctate calcification probably in the lower pole calyceal papilla. This seems to be roughly in the same position as an [address] scan prior to this episode. This 6 mm stone appears to be completely new in the last 18 months. She therefore is at high risk for stone formation. Plan Continue current care. Appreciate hospitalist assistance with medical management I reviewed that she will go home on antibiotics and we will make plans to treat the stone either with ESWL if it can be easily visualized and/or ureteroscopy after recovery from infection. Discussed the importance of long-term stone risk reduction strategy Also discussed the importance of keeping her appointments try to avoid recurrent episodes like this in the future. It is very likely that the stone is causing problem now would have been identified as growing had she kept her follow-up appointments.this all made sense to her and she is committed to follow-up now Attestations Medical Necessity Statement*: Requiring IV antibiotics for obstructive pyelonephritis. Cultures pending. Coding Level of Care Code Acute Code for Chg Fwd Diagnoses Right ureteral calculus N20.1 Solitary kidney, acquired Z90.5 Obstructive pyelonephritis N11.1 Retained ureteral stent Z96.0 Chronic steroid use CKD (chronic kidney disease) N18.9 Urolithiasis N20.9
--- NOTE | 2022-09-23 10:45 | XRR_ITS ---
PROCEDURE INFORMATION: Exam: XR Abdomen Exam date and time: 09/23/2022 12:09 PM Age: 62 years old Clinical indication: Condition or disease; Kidney or ureter condition; Calculus (stone) in ureter; Additional info: Follow-up right ureteral stone, not portable TECHNIQUE: Imaging protocol: Radiologic exam of the abdomen. Views: Frontal supine view of the abdomen. 1 View. COMPARISON: CT kidney stone [id number] 09/21/2022 8:14 PM FINDINGS: Tubes, catheters and devices: A right ureteral stent projects in satisfactory position. Gastrointestinal tract: Normal. No bowel dilation. Vasculature: There is a tiny phlebolith along the stent at the L4 level. No renal calcifications are seen. Bones/joints: Unremarkable. XR/XR KUB [id number] IMPRESSION: Satisfactory position of the right ureteral stent. No acute abnormality.
[2022-09-23] MEDS: predniSONE 5 mg Tablet PO (11:09)
[2022-09-23] MEDS: acetaminophen 325 mg Tablet 650 MG PO ×2 (11:09→21:17)
--- NOTE | 2022-09-23 11:31 | PM.PN ---
Subjective Subjective: No fever since stent placement Leukocytosis noted Patient takes steroids for giant cell arteritis Pain well managed Awake and alert Feeling better Vera catheter in place Question blood cultures today Awaiting urine culture report Plan for stone removal once infection clears as per Dr. Elder Vitals/I&O/Wt Last Vital Signs Temp 98.5 F 09/23/22 07:52 Pulse 84 09/23/22 07:52 Resp 18 09/23/22 07:52 BP 136/78 09/23/22 07:52 Pulse Ox 90 09/23/22 07:52 O2 Del Method Room Air 09/23/22 07:52 O2 Flow Rate 1.5 09/22/22 20:00 09/22/22 09/23/22 09/23/22 22:59 06:59 14:59 Intake Total 1580 / 2180 1400 / 3580 480 / 480 Output Total 425 / 425 900 / 1325 Balance 1155 / 1755 500 / 2255 480 / 480 Weight last 48 hrs Weight 104.326 kg Physical Exam Narrative: Awake and alert GCS 15 Vera catheter with clear urine nonfocal neuro exam S1-S2 doing well on room air Pleasant and cooperative No headache Urinary Catheter Management: Vera: Cath Placed During This Visit: no Reason for Continuing Indwelling Catheter: Other Data 09/23/22 03:55 09/23/22 03:55 Micro: Microbiology 09/22/22 02:00 Urine Culture - Preliminary Urine,Clean Catch Gram Negative Rods 09/23/22 09:29 Blood Culture - Preliminary Blood SPECIMEN COLLECTED 09/23/22 09:19 Blood Culture - Preliminary Blood SPECIMEN COLLECTED A&P Assessment and plan (1) Temporal giant cell arteritis: (2) Depression: (3) Gastroesophageal reflux: (4) Urinary incontinence: Qualifiers: Urinary Incontinence type: mixed stress and urge incontinence Qualified Code(s): N39.46 - Mixed incontinence (5) Solitary kidney, acquired: (6) Right ureteral calculus: (7) Obstructive uropathy: (8) Retained ureteral stent: (9) Obstructive pyelonephritis: Plan No perioperative complications noted Febrile events and leukocytosis worsening noted, patient is not septic Stent placed by Dr. Elder yesterday Leukocytosis noted, patient take steroids at home for giant cell arteritis Holding methotrexate and Humira for now Continue morphine for hypertension Currently on ceftriaxone 2 g every 12 hours For obstructive pyelonephritis patient has received a stent plan for stone removal as per Dr. Elder once UTI/pyonephritis clears up Patient has to wait for the blood and urine culture report which might take 24 to 48 hours to decide on antibiotics then she will stay in the hospital Medicine will follow along Patient is on regular diet DVT prophylaxis added Attestations Medical Necessity Statement*: As per orthopedics Diagnoses Temporal giant cell arteritis M31.6 Depression F32.9 Gastroesophageal reflux K21.9 Urinary incontinence N39.46 Urinary Incontinence type: mixed stress and urge incontinence Solitary kidney, acquired Z90.5 Right ureteral calculus N20.1 Obstructive uropathy N13.9 Retained ureteral stent Z96.0 Obstructive pyelonephritis N11.1
[2022-09-23] MEDS: aspirin 81 mg EC Tablet PO (12:58)
[2022-09-23] MEDS: amlodipine 5 mg Tablet PO (12:59)
[2022-09-23] MEDS: folic acid 1 mg Tablet 2 MG PO (12:59)
[2022-09-23] MEDS: heparin 5,000 unit/mL INJ 1 mL 5000 UNIT SUBCUT ×2 (12:59→23:10)
[2022-09-23] MEDS: sertraline 100 mg Tablet PO (13:08)
[2022-09-23] MEDS: docusate sodium 100 mg Capsule PO (17:34)
[2022-09-23] MEDS: famotidine 20 mg Tablet PO (17:34)
[2022-09-23] MEDS: atorvastatin 40 mg Tablet 20 MG PO (21:17)
[2022-09-23] MEDS: estradiol 1 mg Tablet 0.5 MG PO (21:17)
[2022-09-23] MEDS: metoprolol succinate ER (24 HR) 25 mg Tablet PO (21:17)
[2022-09-24] VITALS (7 sets, daily range): BP systolic 148–172; BP diastolic 80–94; PULSE 66–85; RESP 16–18; TEMP 36.7–36.9; O2SAT 92–96
[2022-09-24] MEDS: sodium chloride 0.9% 1,000 ML 125 ML IV (05:38)
[2022-09-24 05:46] LABS: Basophils % 0.3 %; Eosinophils # 0.1 10^3/uL (0.0-0.8); Eosinophils % 0.4 %; Hematocrit 35.7 % (37.0-47.0); Hemoglobin 11.2 g/dL (11.5-15.3); Lymphocytes # 2.3 10^3/uL (0.8-4.8); Lymphocytes % 19.9 %; Mean Corpuscular HGB Conc 31.4 g/dL (30.0-36.0); Mean Platelet Volume 10.9 fL (7.4-10.4); Monocytes # 0.7 10^3/uL (0.2-0.9); Monocytes % 6.3 %; Neutrophils # 8.49 10^3/uL (1.8-7.7); Neutrophils % 72.7 %; Nucleated Red Blood Cells % 0 %; Platelet Count 228 10^3/cmm (130-400); Red Cell Distribution Width 13.4 % (12.1-15.1); White Blood Count 11.7 10^3/uL (4.0-10.0)
[2022-09-24 06:20] LABS: Blood Urea Nitrogen 16 mg/dL (8-23); Calcium 8.5 mg/dL (8.5-10.5); Carbon Dioxide 27 mmol/L (22-29); Chloride 108 mmol/L (98-107); Glomerular Filtration Rate 56.6 mL/min (90-130); Glucose 104 mg/dL (65-115); Osmolality Calculated 303 mOsm/kg (285-295); Sodium 146 mmol/L (136-145)
[2022-09-24] MEDS: cefTRIAXone 2,000 MG in sodium chloride 0.9% (plus) 50 ML 100 MG IV (06:30)
[2022-09-24] MEDS: famotidine 20 mg Tablet PO (09:42)
[2022-09-24] MEDS: predniSONE 5 mg Tablet PO (09:42)
[2022-09-24] MEDS: sertraline 100 mg Tablet PO (09:42)
[2022-09-24] MEDS: amlodipine 5 mg Tablet PO (09:42)
[2022-09-24] MEDS: docusate sodium 100 mg Capsule PO (09:42)
[2022-09-24] MEDS: aspirin 81 mg EC Tablet PO (09:42)
[2022-09-24] MEDS: folic acid 1 mg Tablet 2 MG PO (09:42)
[2022-09-24] MEDS: estradiol 1 mg Tablet 0.5 MG PO (09:44)
--- NOTE | 2022-09-24 11:04 | P.DS_ITS ---
Discharge Providers Date of Admission: 09/21/22 21:01 Date of Discharge: September 24, 2022 Attending Provider at Admission: Carlton Elder MD Attending Provider at Discharge: Carlton Elder MD Consults: Specialist service, Dr. Beasley Primary Care Provider: Maira Gilbert MD Diagnoses at Discharge Discharge Diagnosis (1) Obstructive pyelonephritis: Status: Acute (2) Right ureteral calculus: Status: Acute (3) Solitary kidney, acquired: Status: Acute (4) Retained ureteral stent: Status: Acute (5) Temporal giant cell arteritis: Status: Acute (6) Depression: Status: Acute (7) Gastroesophageal reflux: Status: Acute (8) Urinary incontinence: Status: Acute Qualifiers: Urinary Incontinence type: mixed stress and urge incontinence Qualified Code(s): N39.46 - Mixed incontinence Reason for Visit Reason for Visit: right proximal ureteral stone Brief History: History of stones. 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 Presented with typical renal colic and no evidence of symptomatic infection. Hospital Course Hospital Course Presented to the emergency department on the night of 09/21/2022 with co mplaints of right renal colicky type symptoms complicated by history of right solitary kidney secondary to transplant donation previously. She also had prior history of a stone associated with obstructive pyelonephritis. Initially was felt to be just related to stone. She had a delayed providing of the urine. Initially afebrile white count was minimally elevated and she looked just like she had typical renal colicky appearance. Because of the severity of the pain though she was admitted for further evaluation and treatment also because of her solitary kidney with a 6 mm stone in the proximal ureter it was felt that she would require intervention and tentative plans were made for endoscopic treatment of the stone On the following morning her urinalysis came back and clearly showed infect ion. Her clinical picture began to look more like obstructive pyelonephritis with increasing white count, elevated temperature, persistent tachycardia and tachypnea but no hemodynamic instability. Her creatinine has bounced up from 1.5-2.0. She was started on antibiotics after urine culture and it was recommended that she undergo urgent/emergent right ureteral stent placement. Hospitalist service was consulted and Dr. Beasley provided medical management. On 09/22/2022 she underwent cystoscopy and right ureteral stent placement uneventfully. She had fairly prompt improvement in all parameters including symptoms vital signs and laboratory values. Urine culture came back E. coli very sensitive and was covered by the ceftriaxone she was on. Previously in December 2021 she had a more resistant Proteus organism. White count was declining back to admission level. Vital signs were very stable and she had no fever spikes. KUB showed on postop day #1 the stent to be in good position. I could not clearly see the stone. (Prior stone was 90% carbonate Apatite and 10% calcium oxalate dihydrate) On careful questioning postoperatively she did admit that she had probably been having some increasing irritative symptoms with voiding including urgency, frequency, nocturia, smaller voided volumes which is unusual for her. She did not really associate them with UTI because of the absence of burning and pain. Operatively she did well. She was felt to be a good candidate for further convalescence at home and was discharged on postoperative day #2. Was placed on CEFUROXIME 500 mg twice a day. Plans will be made to perform endoscopic evaluation of her ureter with plans for laser lithotripsy of the stone. Elected this over ESWL based on the lack of radiopacity. Physical Exam Narrative: Looks great. Alert oriented no acute distress Unlabored respiration. No audible wheezing Normal range of motion of extremities Clear thinking No obvious discomfort Back to baseline. Urinary Catheter Management: Vera: Cath Placed During This Visit: no Reason for Continuing Indwelling Catheter: Other Discharge Data Studies Completed and Pending Completed Studies During Hospitalization Category Date Time Status CT abdomen renal stone [CT kidney stone 39190] Stat Cat Scan 09/21/22 19:16 Completed XR KUB 32135 Routine Exams 09/23/22 10:45 Completed US carotid duplex bilateral [CV carotid duplex BI* Ultrasound 09/22/22 09:42 Completed 25647] Routine Pending at discharge Category Date Time Status Blood Culture Stat Lab 09/23/22 09:29 Results Radiology Impressions Abdomen/Pelvis CT 09/21/22 19:16 IMPRESSION: 1. Mild right hydronephrosis. 6 mm obstructing proximal right ureteral calculus, series 5, image 66. Findings are consistent with right obstructive uropathy. This is new when compared to CT abdomen and pelvis dated 03/25/2021. 2. Absent left kidney. C-Arm Fluoroscopy 09/22/22 13:30 IMPRESSION: Right retrograde ureteral pyelogram as above. KUB X-Ray 09/23/22 10:45 IMPRESSION: Satisfactory position of the right ureteral stent. No acute abnormality. Laboratory Results WBC 11.7 10^3/uL (4.0-10.0) H 09/24/22 05:10 RBC 3.50 10^6/uL (4.1-5.3) L 09/24/22 05:10 Hgb 11.2 g/dL (11.5-15.3) L 09/24/22 05:10 Hct 35.7 % (37.0-47.0) L 09/24/22 05:10 MCV 102.0 fl (81-99) H 09/24/22 05:10 MCH 32.0 pg (28.0-34.0) 09/24/22 05:10 MCHC 31.4 g/dL (30.0-36.0) 09/24/22 05:10 RDW 13.4 % (12.1-15.1) 09/24/22 05:10 Plt Count 228 10^3/cmm (130-400) 09/24/22 05:10 MPV 10.9 fL (7.4-10.4) H 09/24/22 05:10 Neut % (Auto) 72.7 % 09/24/22 05:10 Lymph % (Auto) 19.9 % 09/24/22 05:10 Crowley % (Auto) 6.3 % 09/24/22 05:10 Eos % (Auto) 0.4 % 09/24/22 05:10 Baso % (Auto) 0.3 % 09/24/22 05:10 Neut # (Auto) 8.49 10^3/uL (1.8-7.7) H 09/24/22 05:10 Lymph # (Auto) 2.3 10^3/uL (0.8-4.8) 09/24/22 05:10 Crowley # (Auto) 0.7 10^3/uL (0.2-0.9) 09/24/22 05:10 Eos # (Auto) 0.1 10^3/uL (0.0-0.8) 09/24/22 05:10 Baso # (Auto) 0.0 10^3/uL (0.0-0.1) 09/24/22 05:10 Nucleated RBC % (auto) 0 % 09/24/22 05:10 Nucleated RBCs # 0.0 /100WBC 09/24/22 05:10 Sodium 146 mmol/L (136-145) H 09/24/22 05:10 Potassium 4.0 mmol/L (3.5-5.1) 09/24/22 05:10 Chloride 108 mmol/L (98-107) H 09/24/22 05:10 Carbon Dioxide 27 mmol/L (22-29) 09/24/22 05:10 Anion Gap 15.0 (5-19) 09/24/22 05:10 BUN 16 mg/dL (8-23) 09/24/22 05:10 Creatinine 1.0 mg/dL (0.5-0.9) H 09/24/22 05:10 GFR Calculation 56.6 mL/min (90-130) L 09/24/22 05:10 Glucose 104 mg/dL (65-115) 09/24/22 05:10 POC Glucose 108 mg/dL (70-110) 09/22/22 09:52 Calculated Osmolality 303 mOsm/kg (285-295) H 09/24/22 05:10 Lactate 1.5 mmol/L (0.5-2.2) 09/22/22 08:11 Calcium 8.5 mg/dL (8.5-10.5) 09/24/22 05:10 Total Bilirubin 0.4 mg/dL (0.15-1.2) 09/22/22 08:11 AST 18 U/L (0-32) 09/22/22 08:11 ALT 11 U/L (0-33) 09/22/22 08:11 Alkaline Phosphatase 81 U/L (35-105) 09/22/22 08:11 Troponin T Baseline 8 ng/L (0-10) 09/21/22 19:44 Troponin T 120 Minute 8.24 ng/L (0-10) 09/21/22 21:32 Delta Troponin T 0.24 ABS# (0-10) 09/21/22 21:32 Total Protein 6.7 g/dL (6.6-8.7) 09/22/22 08:11 Albumin 3.7 g/dL (3.5-5.2) 09/22/22 08:11 Globulin 3.0 g/dL (1.3-4.6) 09/22/22 08:11 Lipase 47 U/L (13-60) 09/21/22 19:44 Urine Color Yellow (Yellow) 09/22/22 02:00 Urine Appearance Cloudy (CLEAR) A 09/22/22 02:00 Urine pH 6.5 (5-7) 09/22/22 02:00 Ur Specific [place] 1.010 (1.005-1.030) 09/22/22 02:00 Urine Protein 1+ (Negative) H 09/22/22 02:00 Urine Glucose (UA) Norm (Normal) 09/22/22 02:00 Urine Ketones Negative (Negative) 09/22/22 02:00 Urine Blood 3+ (Negative) H 09/22/22 02:00 Urine Nitrate Positive (Negative) H 09/22/22 02:00 Urine Bilirubin Neg (Negative) 09/22/22 02:00 Urine Urobilinogen Norm mg/dL (Negative) 09/22/22 02:00 Ur Leukocyte Esterase 2+ (Negative) H 09/22/22 02:00 Urine RBC 50-80 /hpf (0-2) H 09/22/22 02:00 Urine WBC Too numerous to cnt /hpf (0-5) H 09/22/22 02:00 Ur Squamous Epith Cells 5-10 /hpf (0-5) H 09/22/22 02:00 Amorphous Sediment Not Reportable 09/22/22 02:00 Urine Bacteria 3+ /hpf (NONE) H 09/22/22 02:00 Additional Data from Hospital Stay Urine culture: E. coli Resistant only to ampicillin sulbactam Vitals Last Vital Signs Temp 98.1 F 09/24/22 07:39 Pulse 70 09/24/22 07:39 Resp 18 09/24/22 07:39 BP 164/84 09/24/22 07:39 Pulse Ox 93 09/24/22 07:39 O2 Del Method Nasal Cannula 09/24/22 07:39 O2 Flow Rate 1 09/24/22 07:24 Discharge Plan Discharge Patient Disposition: Home Condition: Stable Prescriptions: New cefuroxime axetil 500 mg tablet 500 mg PO BID 10 Days Qty: 28 1RF Continued cyanocobalamin (vitamin B-12) [Vitamin B-12] 2,500 mcg tablet, sublingual 2,500 mcg sublingual DAILY methotrexate sodium 2.5 mg tablet 12.5 mg PO .weekly Qty: 30 3RF Rx Instructions: 5 tabs on same day once a week. folic acid 1 mg tablet 2 mg PO DAILY Qty: 180 1RF amlodipine 5 mg tablet 5 mg PO DAILY Qty: 90 3RF albuterol sulfate [ProAir HFA] 90 mcg/actuation HFA aerosol inhaler 2 puff INHALATION Q4H PRN (Reason: Shortness Of Breath) Qty: 8.5 6RF estradiol 1 mg tablet 0.5 mg PO BID Qty: 90 3RF diclofenac sodium 1 % gel 2 g topical QID Qty: 100 0RF Rx Instructions: apply to shoulder prednisone 5 mg tablet 5 mg PO DAILY 30 Days Qty: 30 3RF Rx Instructions: part of a taper 5mg in AM, 3mg in PM. Zyrtec 10 mg capsule 10 mg PO DAILY Qty: 90 2RF Enbrel 50 mg/mL (1 mL) syringe 50 mg SUBCUT .qweek Qty: 4 5RF Multivitamin 50 Plus Tablet 1 tab PO DAILY aspirin 81 mg Tablet,Delayed Release (Dr/Ec) 81 mg PO DAILY Qty: 30 0RF Vitamin D3 50 mcg (2,000 unit) Capsule 50 mcg PO DAILY atorvastatin 20 mg tablet 20 mg PO DAILY sertraline 100 mg tablet 100 mg PO DAILY famotidine 20 mg tablet 20 mg PO BID metoprolol succinate 25 mg tablet extended release 24 hr 25 mg PO BEDTIME fluticasone propionate 50 mcg/actuation spray,suspension 2 spray intranasal DAILY Humira Pen 40 mg/0.8 mL pen injector kit 40 mg SUBCUT Q14D Discharge Orders: Discharge Order (Routine); Ordered 09/24/22 Ordered By: Carlton Elder Referrals: Carlton Elder MD [Physician] - (We will schedule her for surgery Outpatient Surgery this coming Monday afternoon on 09/28/2022. She will need to call my office for details. [phone]) Maira Gilbert MD [Primary Care Provider] - Discharge Diet: Usual diet Discharge Activity: Increase activity as tolerated Patient Instructions: Opioid Safety Activity Restrictions/Additional Instructions: Urology instructions: 1. If you continue to do as well as you are we will plan for treatment of the s tone with the scope under anesthesia on 09/28/2022. The procedure is called a cystoscopy, RIGHT retrograde, ureteroscopy, laser, possible stent. If the stent is replaced it will be short-term and to allow appropriate healing before the stent is removed. This will be a decision made intraoperatively. 2. A prescription for CEFUROXIME has been sent to [facility] in [place]. You will need to stay on that antibiotic until we have completed the treatment of the stone. 3. He will be very important to focus on stone risk reduction strategies moving forward. Urology follow-up after I retire will probably request a 24-hour urine to see if we can identify risk factors that can be better controlled. 4. As we talked about it will be very important to increase your fluid intake to produce at least 2 to 3 L (preferably 3 L) every 24 hours. You can start working on that now. He will be important to measure at home to make sure that you actually are hitting those targets consistently. The good news after you have establish the habit it would be hard to stop and will be much easier. 5. Please call if you have any concerns prior to the scheduled surgery next week. Possible upper can reach me after hours. My office number is [phone] during normal working hours. Discharge Attestations Time Spent in Discharge Care*: greater than 30 min Quality Metrics Clinical Quality Measures [ No reported AMI, CVA or VTE this stay] Coding Level of Care Code Acute Code for Chg Fwd Diagnoses Obstructive pyelonephritis N11.1 Right ureteral calculus N20.1 Solitary kidney, acquired Z90.5 Retained ureteral stent Z96.0 Temporal giant cell arteritis M31.6 Depression F32.9 Gastroesophageal reflux K21.9 Urinary incontinence N39.46 Urinary Incontinence type: mixed stress and urge incontinence
== END 2022-09-24 13:40 | disposition home or self-care (01) | DRG 661 ==
LOC: ER 21:02 → MEDSURG 23:02
PROVIDERS: Internal Medicine; Admitting Provider Urology; Emergency Provider Nurse Practitioner Family; PCP Family Medicine; Visit Provider Urology
PROC: 0TJB8ZZ Inspection of Bladder, Via Natural or Artificial Opening Endoscopic (ICD-10-PCS; CPT 52000; principal; 2022-09-22 13:00)
PROC: 0T768DZ Dilation of Right Ureter with Intraluminal Device, Via Natural or Artificial Opening Endoscopic (ICD-10-PCS; CPT 74420; 2022-09-22 13:00)
PROC: 0TJ98ZZ Inspection of Ureter, Via Natural or Artificial Opening Endoscopic (ICD-10-PCS; CPT 52351; 2022-09-22 13:00)
PROC: 0T768DZ Dilation of Right Ureter with Intraluminal Device, Via Natural or Artificial Opening Endoscopic (ICD-10-PCS; CPT 50605; 2022-09-22 13:00)
DX: N13.6 Pyonephrosis (principal); I12.9 Hypertensive chronic kidney disease with stage 1 through stage 4 chronic kidney disease, or unspecified chronic kidney disease; Z87.891 Personal history of nicotine dependence; J45.909 Unspecified asthma, uncomplicated; F32.A Depression, unspecified; M19.90 Unspecified osteoarthritis, unspecified site; Z86.73 Personal history of transient ischemic attack (TIA), and cerebral infarction without residual deficits; K21.9 Gastro-esophageal reflux disease without esophagitis; Z87.442 Personal history of urinary calculi; Z90.5 Acquired absence of kidney; Z52.4 Kidney donor; Z79.82 Long term (current) use of aspirin; Z79.52 Long term (current) use of systemic steroids; N39.46 Mixed incontinence; F41.9 Anxiety disorder, unspecified; M31.6 Other giant cell arteritis; E66.01 Morbid (severe) obesity due to excess calories; Z68.38 Body mass index [BMI] 38.0-38.9, adult; R00.0 Tachycardia, unspecified; B96.20 Unspecified Escherichia coli [E. coli] as the cause of diseases classified elsewhere; N18.30 Chronic kidney disease, stage 3 unspecified
CPT/HCPCS: 36415; 36416; 74018; 74176; 76000; 80048; 80053; 81001; 82962; 83605; 83690; 84484; 85025; 87040; 87077; 87086; 87186; 93005; 93880; 96361; 96372; 96374; 96375; 99285; J0696; J1644; J2250; J2270; J2405; J2704; J2930; J3010; J3490; J7030; J7040; J7512; J8499; P9045

== ENCOUNTER → 2022-09-28 10:55 | Day surgery (SDC) | payer OTHER, SELFPAY ==
[2022-09-27 10:10] VITALS: BMI 38.2
[2022-09-28] VITALS (8 sets, daily range): BP systolic 95–136; BP diastolic 56–82; PULSE 78–97; RESP 15–18; TEMP 36.2–36.8; O2SAT 90–97
--- NOTE | 2022-09-28 11:03 | XR_ITS ---
WS: [id number] ABDOMEN KUB CLINICAL INFORMATION: Renal/ureteral calculi. COMPARISON: September 23, 2022 FINDINGS: RIGHT double-J ureteral stent. Surgical clips LEFT retroperitoneum. Normal bowel gas pattern. Scattered air and normal caliber small and large bowel. No significant tahira l distention. XR/XR KUB [id number] Impression: Stable RIGHT double-J ureteral stent.
--- NOTE | 2022-09-28 11:03 | SC_ITS ---
WS: [id number] C-ARM RADIOGRAPHS ABDOMEN; 2 IMAGES HISTORY: Right ureteroscopy COMPARISON: None available. Intraoperative imaging during ureteroscopy. SC/C-arm FL for Urology IMPRESSION: Intraoperative imaging during ureteroscopy.
[2022-09-28] MEDS: sodium chloride 0.9% 1,000 ML 30 ML IV (11:55)
--- NOTE | 2022-09-28 12:29 | ANES.PREANE2 ---
Pre-Anesthetic Assessment Height/Weight: Height 1.65 m Weight 104.326 kg Temp Pulse Resp BP Pulse Ox O2 Del Method 97.4 F L 79 18 136/81 96 Room Air 09/28/22 11:25 09/28/22 11:25 09/28/22 11:25 09/28/22 11:25 09/28/22 11:25 09/28/22 11:37 Preop Diagnosis: Status post emergency right ureteral stenting for obstructive pyelo Operation Date: 09/28/22 12:50 Proposed Procedures p CYSTOSCOPY RIGHT RETROGRADE URETEROSCOPY LASER STENT 46522 [id number] modifier 26,N20.9(Not Applicable) - Carlton Elder MD s Retrograde Pyelogram(Right) - MD dinesh Lopez Ureteroscopy(Right) - MD dinesh Lopez Laser Lithotripsy(Right) - MD dinesh Lopez Ureteral Stent Placement(Right) - Carlton Elder MD Familial anesthetic complications: none Was Beta Ronn taken within 24 hours: Yes Was Clonidine taken within 24 hours: N/A Last intake: Intake Last Liquid Date 09/27/22 Last Liquid Time 22:00 Last Solid Date 09/27/22 Last Solid Time 19:00 Social No alcohol and No tobacco Exam alert, oriented x 3, clear to auscultation bilaterally and regular rate & rhythm Airway Submandibular: within normal limits Cervical ROM: within normal limits Mallampati: Class II Dentition: full Pulmonary Asthma CV/HEM Anemia and Hypertension Metabolic Hyperlipidemia and Morbid Obesity Chronic steroids Neuropsych Cerebrovascular Accident Temporal arteritis Anesthetic Plan ASA status: 3 Anesthesia: General Medications/Allergies Home Medications Medication Instructions Recorded Confirmed Last Taken Type antpdomjhjzl-djcqialr-edbzjj 1 tab PO DAILY 05/17/20 09/27/22 1 Day Ago History tablet (Multivitamin 50 Plus ~09/26/22 tablet) aspirin 81 mg tablet,delayed 81 mg PO DAILY #30 tabs 05/20/20 09/27/22 09/26/22 Rx release cyanocobalamin (vitamin B-12) 2,500 mcg sublingual DAILY 09/03/20 09/27/22 1 Day Ago History 2,500 mcg sublingual tablet ~09/26/22 (Vitamin B-12) albuterol sulfate 90 mcg/actuation 2 puff inhalation Q4H PRN 05/26/22 09/27/22 Unknown Rx aerosol inhaler (ProAir HFA) Shortness Of Breath #8.5 grams amlodipine 5 mg tablet 5 mg PO DAILY #90 tabs 05/26/22 09/27/22 1 Day Ago Rx ~09/26/22 estradiol 1 mg tablet 0.5 mg PO BID #90 tabs 05/26/22 09/27/22 1 Day Ago Rx ~09/26/22 folic acid 1 mg tablet 2 mg PO DAILY #180 tabs 08/16/22 09/27/22 1 Day Ago Rx ~09/26/22 cetirizine 10 mg capsule (Zyrtec) 10 mg PO DAILY #90 caps 09/06/22 09/27/22 1 Day Ago Rx ~09/26/22 prednisone 5 mg tablet 5 mg PO DAILY 30 days #30 tabs 09/06/22 09/27/22 1 Day Ago Rx ~09/26/22 atorvastatin 20 mg tablet 20 mg PO DAILY 09/22/22 09/27/22 1 Day Ago History ~09/26/22 cholecalciferol (vitamin D3) 50 50 mcg PO DAILY 09/22/22 09/27/22 1 Day Ago History mcg (2,000 unit) capsule (Vitamin ~09/26/22 D3) famotidine 20 mg tablet 20 mg PO BID 09/22/22 09/27/22 1 Day Ago History ~09/26/22 fluticasone propionate 50 2 spray intranasal DAILY 09/22/22 09/27/22 1 Day Ago History mcg/actuation nasal ~09/26/22 spray,suspension metoprolol succinate 25 mg 25 mg PO BEDTIME 09/22/22 09/27/22 1 Day Ago History tablet,extended release 24 hr ~09/26/22 sertraline 100 mg tablet 100 mg PO DAILY 09/22/22 09/27/22 1 Day Ago History ~09/26/22 cefuroxime axetil 500 mg tablet 500 mg PO BID 10 days #28 tabs 09/24/22 09/27/22 1 Day Ago Rx ~09/26/22 adalimumab 40 mg/0.8 mL 40 mg (0.8 mL) SUBCUT Q14D #2 ea 09/27/22 Unknown Rx subcutaneous pen kit (Humira Pen) Allergies Allergy/AdvReac Type Severity Reaction Status Date / Time No Known Allergies Allergy Verified 09/22/22 08:42 Current Medications Generic Name Dose Route Start Last Admin Trade Name Freq PRN Reason Stop Dose Admin Sodium Chloride 1,000 mls @ 30 mls/hr 09/28/22 11:15 09/28/22 11:55 Sodium Chloride 0.9% IV 09/29/22 11:14 30 mls/hr .Q24H FRANCISCO Administration PFSH Anesthesia Medical History Acute CVA (cerebrovascular accident) Asthma Chronic kidney disease, stage 3 Current chronic use of systemic steroids Depression Dermatitis Gastroesophageal reflux History of melanoma Right arm - removed 11/2013. Right forearm - removed 08/2011. Right ureteral calculus Temporal giant cell arteritis Ureterolithiasis Obstructing left proximal ureteral stone May 2020 leftComplication of associated pyelonephritis. Emergency stenting. 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 08/2011: Removed from right forearm. H/O oral surgery (~2013) Remove growth from mouth - benign. H/O: hysterectomy (12/11/07) LAVH/BSO. Dx: Uterine fibroids, Menorrhagia, Dysmenorrhea. [place] [facility] [place] History of colonoscopy (~03/2015) Dr. Stewart Status post cystoscopy with ureteral stent placement Ferdinand teeth extracted (~2004) Family History Grandfather Stroke Maternal grandfather Mother Hyperlipidemia Hypertension Father Heart disease Grandmother Heart disease Paternal grandmother Diabetes Paternal grandmother Hypertension Maternal grandmother Denies family history of Anesthesia complication Bleeding disorder Social History Smoking and tobacco status: never smoked Quit status (tobacco): has quit using tobacco Year quit tobacco: 1990 Second hand smoke exposure: No Alcohol intake: current Alcohol intake frequency: holidays/special occasions only Alcohol type: wine Substance/Drug Use: never Caregiver/support person: Yes Lives independently: Yes Marital status: service: No Current occupational status: employed Current gender identity: Female Special carmen needs: No Data Anesthesia Cardiac Studies: Echocardiogram Ultrasound 05/18/20
--- NOTE | 2022-09-28 13:13 | W.PM.OPSUD ---
Surgery/Procedure H&P Update DATE OF PROCEDURE: September 28, 2022 DATE H&P PERFORMED: 09/21/22 H&P UPDATE INFORMATION: I have reviewed H&P completed within last 30 days, I have examined patient prior to procedure, No changes to prior documentation and Changes to prior documentation as noted here CHANGES TO PREVIOUS DOCUMENTATION: Cannot clearly see the stone on the KUB today. Cannot rule out passage or radiolucent stone With ureteroscopy presuming the stone is still there PREOP DIAGNOSIS: Status post emergency right ureteral stenting for obstructive pyelo PLANNED PROCEDURE: Operation Date: 09/28/22 12:50 Proposed Procedures p CYSTOSCOPY RIGHT RETROGRADE URETEROSCOPY LASER STENT 94246 [id number] modifier 26,N20.9(Not Applicable) - Carlton Elder MD s Retrograde Pyelogram(Right) - MD dinesh Lopez Ureteroscopy(Right) - MD dinesh Lopez Laser Lithotripsy(Right) - MD dinesh Lopez Ureteral Stent Placement(Right) - Carlton Elder MD
--- NOTE | 2022-09-28 13:17 | P.OP_ITS ---
Operative Report Date of procedure: September 28, 2022 Pre-op diagnosis: Right proximal ureteral stone status post emergency stenting for obstructive pyelonephritis Post-op diagnosis: Ureteral stone confirmed to have spontaneously passed prior to the procedure Procedure done: 1. Cystoscopy, removal of right ureteral stent 2. Right retrograde ureteropyelogram 3. Right ureteral renoscopy Implants: None Specimens removed/disposition: None Pathology: None Surgeon: Following Estimated blood loss: Minimal Urine output: Not measured. Complications: None Findings: Anesthesia: General Condition: Stable Disposition: PACU Intraoperative findings: * Ureter was nicely dilated No stent left indwelling at the completion of the procedure * Could easily see the entire collecting system and ureter under endoscopy and the stone was confirmed to have spontaneously passed prior to the procedure. * CYSTITIS CYSTICA * No stone for analysis. Brief History: The patient is a very pleasant 62-year-old white female with a history of recurrent stones and prior obstructive pyelonephritis who was recently admitted to the hospital with severe pain to have a right proximal ureteral stone with obstruction and evidence of UTI. She was taken to the operating room urgently for cystoscopy and stent placement. She recovered well from the infection with antibiotics and is back now for attempt at definitive therapy of the stone. Serial KUBs post stent placement have not demonstrated the stone. She is unaware of having passed a stone. Procedure: After routine preoperative evaluation examination and obtaining of informed consent she was taken to the operating suite on 09/28/2022 where general anesthesia was administered without difficulty after appropriate timeout was performed, SCDs confirmed to be functioning, preoperative antibiotics administered, beta-bo protocol confirmed. Prepped and draped in usual sterile fashion in dorsolithotomy position pain careful attention to avoiding pressure points. 21 Maori cystoscope with 30 degree lens was introduced into urethra meatus and advanced into the bladder without difficulty. Bladder was systematically examined and showed both evidence of acute and chronic cystitis. She had DIFFUSE CYSTITIS CYSTICA throughout the bladder which had been previously identified at time of stent placement. The stent was in the expected position without encrustation. A flexible tip guidewire was then advanced up the left ureter next to the stent curling in the area of the upper pole calyx. The stent was then grasped with grasping forceps and withdrawn through the meatus under fluoroscopic guidance without difficulty. A second guidewire was passed through the stent and the first was secured to the drapes as a safety wire and the second was utilized as a wire. An offset semirigid ureteroscope was advanced up the right ureter over the working wire into the ureter and the wire was then removed. The scope was easily passed all the way to the UPJ. Careful inspection revealed no persistence of the stone seen on previous imaging. Could not rule out the possibility of migration into the kidney. The wire was repassed through the scope and the scope was removed. A 24 cm ureteral access sheath was then advanced over the working wire to the hub under fluoroscopic monitoring. The wire was removed a flexible ureterorenoscope was then passed through the sheath easily up the ureter. Again no stones were visualized in the ureter. The renal pelvis and proximal ureter was opacified with retrograde contrast injection for RETROGRADE URETEROPYELOGRAM demonstrating: No evidence of persistent filling defect in the right proximal ureter and no clear evidence of filling defects within the collecting system proximal to that. The scope was then passed into the renal pelvis and all calyces were ca refully inspected with the scope utilizing fluoroscopy as a guide to looking into all the calyces. No stone was seen. She did have some tiny papilla adherent stones that would be punctate at most. These were in the expected position in the right lower pole given the previous CT scan findings. Once it was confirmed that no stones remained in the upper collecting system the sheath was backed down to the hub of the scope and the scope was slowly withdrawn to confirm entry findings of no stone remaining in the ureter. The ureter was in excellent shape with no evidence of significant edema or trauma. It was decided therefore not to leave a stent indwelling. The bladder was again inspected and no stone was seen. Bladder was drained and the procedure was completed. She tolerated the procedure well without complications and was awakened in the operating room and returned recovery in stable condition. PLANS: 1. Anticipate discharge from outpatient surgery today 2. Because of the chronic cystitis findings we will leave her on antibiotics for an extended period of time. 3. She will need follow-up with urology post my long term. We will help make arrangements to have her see either [facility] or [facility]. 4. I reviewed all these points with the patient as well as her close friends who will help her complete these instructions
--- NOTE | 2022-09-28 16:24 | ANE.PACU2 ---
Inpatient post-anesthesia follow up: Airway intact: Yes Vital signs: Temperature 97.2 F Pulse Rate 78 Respiratory Rate 18 Blood Pressure 118/82 Pulse Oximetry 94 Oxygen Delivery Me thod Room Air Oxygen Flow Rate 6 Fraction of Inspir ed Oxygen Hydration adequate: Yes Nausea and vomiting: No Pain level: 3 Mental status: Baseline
== END | disposition home or self-care (01) ==
PROVIDERS: PCP Family Medicine; Visit Provider Urology
PROC: 0TJB8ZZ Inspection of Bladder, Via Natural or Artificial Opening Endoscopic (ICD-10-PCS; CPT 52000; principal; 2022-09-28 12:30)
PROC: (CPT 74420; 2022-09-28 12:30)
PROC: 0TJ98ZZ Inspection of Ureter, Via Natural or Artificial Opening Endoscopic (ICD-10-PCS; CPT 52351; 2022-09-28 12:30)
PROC: (CPT 52310; 2022-09-28 12:30)
DX: N20.1 Calculus of ureter (principal); N30.80 Other cystitis without hematuria; I12.9 Hypertensive chronic kidney disease with stage 1 through stage 4 chronic kidney disease, or unspecified chronic kidney disease; N18.30 Chronic kidney disease, stage 3 unspecified; D64.9 Anemia, unspecified; E78.5 Hyperlipidemia, unspecified; J45.909 Unspecified asthma, uncomplicated; E66.01 Morbid (severe) obesity due to excess calories; Z68.38 Body mass index [BMI] 38.0-38.9, adult; Z87.891 Personal history of nicotine dependence; Z86.73 Personal history of transient ischemic attack (TIA), and cerebral infarction without residual deficits
CPT/HCPCS: 52005; 52310; 74018; 76000; J1100; J2370; J2405; J2704; J2710; J3010; J3490; J7030

== ENCOUNTER → 2022-10-04 14:46 | Outpatient (BNVA) | payer OTHER, SELFPAY | PROVIDERS: PCP Family Medicine; Visit Provider Family Medicine | DX: N20.0 Calculus of kidney (principal) | CPT/HCPCS: 81003 ==

== ENCOUNTER → 2022-11-28 12:56 | Outpatient (BNVA) | payer OTHER, SELFPAY | PROVIDERS: PCP Family Medicine; Visit Provider Internal Medicine | DX: M31.6 Other giant cell arteritis (principal); L30.9 Dermatitis, unspecified; J32.9 Chronic sinusitis, unspecified; B96.89 Other specified bacterial agents as the cause of diseases classified elsewhere; N18.9 Chronic kidney disease, unspecified; M06.9 Rheumatoid arthritis, unspecified | CPT/HCPCS: 36415; 73030; 80053; 81001; 85025; 85651; 86036; 86140; 87077; 87086; 87186 ==

== ENCOUNTER 2023-05-29 13:05 | Outpatient (CLI) | payer OTHER, SELFPAY ==
--- NOTE | 2023-05-29 13:10 | MM_ITS ---
WS: [id number] BILATERAL 3D TOMOSYNTHESIS DIGITAL SCREENING MAMMOGRAPHY WITH CAD CLINICAL INFORMATION: SCREENING HISTORY: Screening mammogram. No current complaints. COMPARISON: 2021 TECHNIQUE: Bilateral CC and MLO views. FINDINGS: The breasts are composed of heterogeneous fibroglandular density tissue, which can limit the detectio n of small underlying mass lesions. No suspicious mass, asymmetry, calcifications, or architectural d istortion. No evidence of malignancy. Vascular calcification IMPRESSION: MM/[place] [id number] BI-RADS: 2-Benign FOLLOW UP: 1 Year Follow-up Recommend return to annual screening mammography.
== END 2023-05-29 13:06 | disposition home or self-care (01) ==
LOC: RAD 13:06
PROVIDERS: PCP Family Medicine; Visit Provider Family Medicine
DX: Z12.31 Encounter for screening mammogram for malignant neoplasm of breast (principal); R92.323 Mammographic fibroglandular density, bilateral breasts; R92.333 Mammographic heterogeneous density, bilateral breasts
CPT/HCPCS: 77063; 77067

== ENCOUNTER → 2023-05-30 10:51 | Outpatient (BNVA) | payer OTHER, BC, SELFPAY | PROVIDERS: PCP Family Medicine; Visit Provider Family Medicine | DX: F32.A Depression, unspecified (principal); I10 Essential (primary) hypertension; E78.2 Mixed hyperlipidemia; E55.9 Vitamin D deficiency, unspecified; E53.8 Deficiency of other specified B group vitamins; R35.0 Frequency of micturition | CPT/HCPCS: 80053; 81003; 82306; 82607; 84443; 85025; 87077; 87086; 87184 ==

== ENCOUNTER 2023-07-12 15:06 | Outpatient (CLI) | payer OTHER, SELFPAY ==
--- NOTE | 2023-07-12 15:24 | XR_ITS ---
WS: [id number] Examination: XR abdomen min 2V [id number] Reason for Exam: NEPHROLITHIASIS Date: July 12, 2023 Comparison: September 28, 2022 Findings: The right ureteral stent has been removed Again surgical clips are identified just to the left of midline There is no free air. There is no evidence of obstruction The psoas margins are well seen. Vascular calcifications present. Impression: There is no evidence of free air or obstruction
== END 2023-07-12 15:07 | disposition home or self-care (01) ==
LOC: RAD 15:19
PROVIDERS: PCP Family Medicine; Visit Provider Urology
DX: N20.0 Calculus of kidney (principal)
CPT/HCPCS: 74019

== ENCOUNTER → 2023-07-26 14:13 | Outpatient (BNVA) | payer OTHER, BC, MEDICAID, SELFPAY | PROVIDERS: PCP Family Medicine; Visit Provider Internal Medicine Rheumatology | DX: Z11.59 Encounter for screening for other viral diseases (principal); Z11.1 Encounter for screening for respiratory tuberculosis; Z79.899 Other long term (current) drug therapy; L40.9 Psoriasis, unspecified; M31.6 Other giant cell arteritis; L40.0 Psoriasis vulgaris | CPT/HCPCS: 36415; 86480; 86704; 86803; 87340 ==

== ENCOUNTER → 2023-08-03 10:55 | Outpatient (BNVA) | payer OTHER, MEDICAID, SELFPAY | PROVIDERS: PCP Family Medicine; Visit Provider Family Medicine | DX: R50.9 Fever, unspecified (principal) | CPT/HCPCS: 87400 ==

== ENCOUNTER → 2023-09-14 13:23 | Outpatient (BNVA) | payer OTHER, BC, MEDICAID, SELFPAY | PROVIDERS: PCP Family Medicine; Visit Provider Family Medicine | DX: N39.0 Urinary tract infection, site not specified (principal) | CPT/HCPCS: 81003 ==

== ENCOUNTER → 2023-12-13 14:34 | Outpatient (BNVA) | payer OTHER, BC, MEDICAID, SELFPAY | PROVIDERS: PCP Family Medicine; Visit Provider Internal Medicine Rheumatology | DX: L40.50 Arthropathic psoriasis, unspecified (principal); M31.6 Other giant cell arteritis | CPT/HCPCS: 36415; 80076; 82565; 85025; 85651; 86140 ==

== ENCOUNTER → 2024-04-17 15:06 | Outpatient (BNVA) | payer OTHER, BC, MEDICAID, SELFPAY | PROVIDERS: PCP Family Medicine; Visit Provider Internal Medicine Rheumatology | DX: L40.50 Arthropathic psoriasis, unspecified (principal); Z79.899 Other long term (current) drug therapy | CPT/HCPCS: 36415; 80076; 82565; 85025; 85651; 86140 ==

== ENCOUNTER → 2024-04-18 12:06 | Outpatient (BNVA) | payer MEDICARE, BC, MEDICAID, SELFPAY | PROVIDERS: PCP Family Medicine; Visit Provider Family Medicine | DX: I10 Essential (primary) hypertension (principal); E78.2 Mixed hyperlipidemia; R30.0 Dysuria; E78.5 Hyperlipidemia, unspecified; Z01.818 Encounter for other preprocedural examination | CPT/HCPCS: 80048; 80061; 81000; 81003 ==

== ENCOUNTER 2024-07-17 15:37 | Outpatient (CLI) | payer MEDICARE, SELFPAY ==
--- NOTE | 2024-07-17 15:44 | XR_ITS ---
WS: [id number] Exam: XR KUB [id number] Date/Time of Exam: 07/17/2024 4:20 PM Reason For Exam: Nephrolithiasis No bowel obstruction or pneumoperitoneum. Surgical clips in the RIGHT abdomen. Small nonspecific calcification along the LEFT paraspinal region at about the level of the L3-4 disc. Opaque material seen in the upper LEFT quadrant that may represent debris in the stomach. Bony structures are intact. XR/XR KUB [id number] IMPRESSION: 1. No acute process identified. 2. Nonspecific LEFT paraspinal calcifications at about the level of the L3-4 di sc. 3. Postoperative changes.
[2024-07-17 16:26] LABS: Basophils # 0.1 10^3/uL (0.0-0.1); Basophils % 0.8 %; Eosinophils # 0.1 10^3/uL (0.0-0.8); Eosinophils % 0.7 %; Hematocrit 42.4 % (36-47); Lymphocytes # 1.8 10^3/uL (0.8-4.8); Lymphocytes % 21.6 %; Mean Corpuscular HGB Conc 31.4 g/dL (30-55); Mean Corpuscular Hemoglobin 29.7 pg (27-33); Mean Corpuscular Volume 94.6 fl (85-98); Mean Platelet Volume 9.9 fL (7.4-10.4); Monocytes # 0.5 10^3/uL (0.2-0.9); Monocytes % 5.6 %; Neutrophils # 5.92 10^3/uL (1.8-7.7); Neutrophils % 70.8 %; Nucleated Red Blood Cells % 0 %; Platelet Count 294 10^3/cmm (157-399); Red Blood Count 4.48 10^6/uL (3.85-5.65); White Blood Count 8.37 10^3/uL (3.29-11.43)
[2024-07-17 16:38] LABS: Erythrocyte Sedimentation Rate 26 mm/hr (0-15)
[2024-07-17 16:47] LABS: Albumin Level 4.2 g/dL (3.5-5.2); Alkaline Phosphatase 134 U/L (35-105); C Reactive Protein 7.8 mg/L (0.0-4.9); Globulin 3.9 g/dL (1.3-4.6); Glomerular Filtration Rate 50.3 mL/min (90-130); Total Bilirubin 0.2 mg/dL (0.15-1.2); Total Protein 8.1 g/dL (6.6-8.7)
[2024-07-17 16:51] LABS: Alanine Aminotransferase 28 U/L (0-33); Aspartate Amino Transferase 33 U/L (0-32)
== END 2024-07-17 15:38 | disposition home or self-care (01) ==
PROVIDERS: Internal Medicine Rheumatology; PCP Family Medicine; Visit Provider Urology
DX: L40.50 Arthropathic psoriasis, unspecified (principal); L40.0 Psoriasis vulgaris; Z79.899 Other long term (current) drug therapy; Z71.85 Encounter for immunization safety counseling; N20.0 Calculus of kidney; M51.86 Other intervertebral disc disorders, lumbar region; Z98.890 Other specified postprocedural states; R93.5 Abnormal findings on diagnostic imaging of other abdominal regions, including retroperitoneum
CPT/HCPCS: 36415; 74018; 80076; 82565; 85025; 85651; 86140; 99214

== ENCOUNTER → 2024-11-13 13:14 | Outpatient (BNVA) | payer MEDICARE, SELFPAY | PROVIDERS: Family Provider Family Medicine; PCP Family Medicine; Visit Provider Internal Medicine Rheumatology | DX: L40.50 Arthropathic psoriasis, unspecified (principal); L40.0 Psoriasis vulgaris; Z79.899 Other long term (current) drug therapy; Z71.85 Encounter for immunization safety counseling | CPT/HCPCS: 36415; 80076; 82306; 82565; 85025; 85651; 86140; 86480; 99214 ==

== ENCOUNTER 2024-11-22 12:54 | Outpatient (CLI) | payer MEDICARE, SELFPAY ==
--- NOTE | 2024-11-22 13:30 | MM_ITS ---
WS: [id number] BILATERAL 3D TOMOSYNTHESIS DIGITAL SCREENING MAMMOGRAPHY WITH CAD CLINICAL INFORMATION: Z12.39 - Encounter for other screening for malignant neop... HISTORY: Screening mammogram. No current complaints. COMPARISON: 2023 TECHNIQUE: Bilateral CC and MLO views. FINDINGS: The breasts are composed of heterogeneous fibroglandular density tissue, which can limit the detection of small underlying mass lesions. No suspicious mass, asymmetry, calcifications, or architectural distortion. No evidence of malignancy. Vascular calcification. MM/MM [facility] tomosynthesis [id number] IMPRESSION: DENSITY: The breasts are heterogeneously dense, which may obscure small masses. BI-RADS: 2 - Benign FOLLOW UP: 1 Year Follow-up Recommend return to annual screening mammography.
--- NOTE | 2024-11-22 14:00 | XR_ITS ---
WS: [id number] SCREENING DEXA SCAN [employer] CLINICAL INFORMATION: M81.0 - Age-related osteoporosis without current patholog... COMPARISON: 2018 FINDINGS: The L1-L4 bone mineral density measures 1.17. This corresponds to a T score score of -0.2 and Z score of 0.1. Left femoral neck bone mineral density measures 0.895 g/cm2. This corresponds to a T score of -0.9 and Z score of -0.7. Right femoral neck bone mineral density measures 0.871 g/cm2. This corresponds to a T score -1.1of and Z score of -0.8. Mean femoral neck bone mineral density measures 0.883 g/cm2. This corresponds to a T score of -1.0 and Z score of -0.8. XR/XR DEXA axial skeleton* [id number] IMPRESSION: Normal bone mineralization lumbar spine. Osteopenia femoral necks at the lower end of the range. Patient's FRAX calculated 10 year probability for major osteoporotic fracture i s 27.6% and osteoporotic hip fracture is 2.4%. Bone density lumbar spine increased 1.6% Bone density femoral necks decreased -6.3%
== END 2024-11-22 12:55 | disposition home or self-care (01) ==
LOC: RAD 12:55
PROVIDERS: Family Provider Family Medicine; PCP Family Medicine; Visit Provider Internal Medicine Rheumatology
DX: Z13.820 Encounter for screening for osteoporosis (principal); M81.0 Age-related osteoporosis without current pathological fracture; R92.333 Mammographic heterogeneous density, bilateral breasts; R92.323 Mammographic fibroglandular density, bilateral breasts; M85.88 Other specified disorders of bone density and structure, other site
CPT/HCPCS: 77063; 77067; 77080

== ENCOUNTER 2025-01-17 16:46 | Emergency (ER) | payer MEDICARE, SELFPAY ==
[2025-01-17 16:58] VITALS: BP 202/150; PULSE 94; RESP 18; TEMP 36.7; O2SAT 93
[2025-01-17 19:03] VITALS: BP 170/102; PULSE 96; O2SAT 96
[2025-01-17 19:09] LABS: Hematocrit 42.4 % (36-47); Hemoglobin 13.60 g/dL (11.27-16.99); Mean Corpuscular HGB Conc 32.1 g/dL (30-55); Mean Corpuscular Hemoglobin 29.8 pg (27-33); Mean Corpuscular Volume 92.8 fl (85-98); Nucleated Red Blood Cells % 0 %; Platelet Count 382 10^3/cmm (157-399); Red Blood Count 4.57 10^6/uL (3.85-5.65); White Blood Count 6.65 10^3/uL (3.29-11.43)
[2025-01-17 19:30] VITALS: PULSE 97; O2SAT 95
[2025-01-17 19:32] LABS: Alanine Aminotransferase 27 U/L (0-33); Albumin Level 4.1 g/dL (3.5-5.2); Alkaline Phosphatase 149 U/L (35-105); Aspartate Amino Transferase 48 U/L (0-32); Blood Urea Nitrogen 22 mg/dL (8-23); Calcium 9.8 mg/dL (8.5-10.5); Carbon Dioxide 23 mmol/L (22-29); Chloride 100 mmol/L (98-107); Globulin 4.7 g/dL (1.3-4.6); Glucose 89 mg/dL (65-115); Lipase 24 U/L (13-60); Osmolality Calculated 299 mOsm/kg (285-295); Sodium 143 mmol/L (136-145); Total Protein 8.8 g/dL (6.6-8.7)
[2025-01-17 19:36] LABS: Anion Gap 24.5 (5-19); Potassium 4.5 mmol/L (3.5-5.1)
[2025-01-17 19:38] VITALS: BP 141/87
[2025-01-17 19:43] LABS: Add Urine Microscopic? NO
--- NOTE | 2025-01-17 19:48 | CTR_ITS ---
PROCEDURE INFORMATION: Exam: CT Abdomen And Pelvis With Contrast Exam date and time: 01/17/2025 8:26 PM Age: 64 years old Clinical indication: Abdominal pain; Generalized; Prior surgery; Surgery date: 6+ months; Surgery type: Kidney donor, hysterectomy; Additional info: Upper abd pain TECHNIQUE: Imaging protocol: Computed tomography of the abdomen and pelvis with contrast. Radiation optimization: All CT scans at this facility use at least one of these dose optimization techniques: automated exposure control; mA and/or kV adjustment per patient size (includes targeted exams where dose is matched to clinical indication); or iterative reconstruction. Contrast material: OMNIPAQUE 350; Contrast volume: 100 ml; Contrast route: INTRAVENOUS (IV); COMPARISON: CT kidney stone [id number] 09/21/2022 8:14 PM RADIATION DOSE METRICS: Total DLP (mGy-cm): 926.93 FINDINGS: Lungs: Lobulated infiltrate at the right lower lobe, concerning for pneumonia with other etiologies such as neoplasm not excluded, consider follow-up after antibiotic therapy to ensure resolution. Diaphragm: Small hiatal hernia. Liver: Probable fatty liver. Gallbladder and biliary ducts: Normal. No calcified stones. No ductal dilation. Pancreas: Normal. No ductal dilation. Spleen: Small splenule. Adrenal glands: Normal. No mass. Kidneys and ureters: Left nephrectomy. Stomach and bowel: Colonic diverticulosis without definite significant acute inflammatory changes. Appendix: No evidence of appendicitis. Intraperitoneal space: Unremarkable. No free air. No significant fluid collection. Vasculature: Aortic atherosclerosis. Lymph nodes: Unremarkable. No enlarged lymph nodes. Urinary bladder: Unremarkable as visualized. Reproductive: Unremarkable as visualized. Bones/joints: Unremarkable. No acute fracture. Soft tissues: Small fat containing umbilical hernia. Other findings: Nonobstructing calculus on the right. CT/CT abdomen pelvis w con* [id number] IMPRESSION: 1. Lobulated infiltrate at the right lower lobe, concerning for pneumonia with other etiologies such as neoplasm not excluded, consider follow-up after antibiotic therapy to ensure resolution. 2. Nonobstructing calculus on the right. 3. Colonic diverticulosis without definite significant acute inflammatory changes.
[2025-01-17 19:52] LABS: Glucose Urine UA Negative (Normal); Nitrate Urine Negative (Negative)
[2025-01-17] MEDS: ondansetron 2 mg/ML SDV 2 mL 4 MG IVP (19:58)
[2025-01-17] MEDS: lidocaine 2% viscous 15 ML, aluminum-mag hydrox-simethicon 30 ML, sucralfate oral liq 1 GM PO (19:58)
[2025-01-17 20:00] VITALS: BP 144/81; PULSE 93; O2SAT 94
[2025-01-17] MEDS: iohexol 350 mg/mL 500 mL Btl (per mL) IV (20:29)
[2025-01-17 20:30] LABS: Specific Gravity, Urine 1.031 (1.005-1.030)
[2025-01-17 20:31] LABS: Charge for UA Resulting for Rev
--- NOTE | 2025-01-17 21:11 | ED_ITS ---
HPI - Nausea/Vomiting/Diarrhea 2 General: Chief complaint: Nausea/Vomiting/Diarrhea Stated complaint: N,V Fever Time Seen by Provider: 01/17/25 19:02 History of Present Illness: Patient is a 64-year-old female presenting with a one-month history of diarrhea and one week of vomiting and anorexia. The patient reports being unable to keep anything down except for ice chips. The diarrhea is described as watery and has persisted despite taking antidiarrheal medications, which provide only temporary relief while the medication is active. The patient has experienced abdominal pain described as being across the top of the abdomen. The patient reports fever, night sweats, but denies chills. In the past day or two, the patient has vomited twice. The patient has attempted self-treatment with Tums, Zofran, Pepto Bismol tablets, antidiarrheal medication, and anti-gas pills with limited success. The patient has not observed blood in the stool but admits to not having looked. The patient has not sought care from their primary care physician due [place] [facility] The patient has a history of kidney donation and reports that inadequate hydration negatively affects their remaining kidney function. Related Data Home Medications ?Medication ?Instructions ?Recorded ?Confirmed hzuruptlgxbo-jptirigq-rutmwa 1 tab PO DAILY 05/17/20 0 11/21/24 tablet (Multivitamin 50 Plus tablet) cholecalciferol (vitamin D3) 50 50 mcg PO DAILY 11/21/24 mcg (2,000 unit) capsule (Vitamin D3) methocarbamol 750 mg tablet See Rx Instructions PO Q8H PRN 04/18/24 11/21/24 Previous Rx's ?Medication ?Instructions ?Recorded aspirin 81 mg tablet,delayed 81 mg PO DAILY #30 tabs 0 05/20/20 release albuterol sulfate 90 mcg/actuation 2 puff inhalation Q 4H PRN 06/27/23 aerosol inhaler (ProAir HFA) Shortness Of Breath #8.5 grams cetirizine 10 mg capsule (Zyrtec) 10 mg PO DAILY #90 c aps 05/06/24 prednisone 5 mg tablet 5 mg PO DAILY #90 tabs 07/17 famotidine 20 mg tablet See Rx Instructions .Route 0 08/05/24 .COMPLEX #180 tabs atorvastatin 20 mg tablet See Rx Instructions .Route 0 10/01/24 .COMPLEX #90 tabs clobetasol 0.05 % topical cream 1 applic topical BID 2 weeks #60 11/13/24 grams etanercept 50 mg/mL (1 mL) 50 mg SUBCUT Q7D #4 mL 10/02 subcutaneous syringe (Enbrel) leflunomide 20 mg tablet 20 mg PO DAILY #90 tabs 10/02 amlodipine 10 mg tablet 10 mg PO DAILY #90 tabs 11/08 08/02 fluticasone propionate 50 See Rx Instructions .Route 0 11/21/24 mcg/actuation nasal .COMPLEX #16 grams spray,suspension sertraline 100 mg tablet See Rx Instructions .Route 0 11/21/24 .COMPLEX #90 tabs metoprolol succinate 25 mg See Rx Instructions .Route 12/16/24 tablet,extended release 24 hr .COMPLEX #30 tabs doxycycline hyclate 100 mg tablet 100 mg PO BID 7 days #14 tabs 01/17/25 metoclopramide HCl 10 mg tablet 10 mg PO Q6H PRN nause a and 01/17/25 (Reglan) vomiting #28 tabs ondansetron 4 mg disintegrating 4 mg PO Q8H PRN nausea and 01/17/25 tablet vomiting #30 tabs Allergies Allergy/AdvReac Type Severity Reaction Status Date / Time tocilizumab (From Actemra) AdvReac Intermediate Rash, Verified 11/13/24 14:33 itching and psoriasis PFSH ED 2 PFSH: Medical History (Updated 01/17/25 @ 21:47 by Abdirahman Yarbrough DO) Immunization counseling High risk medication use Plaque psoriasis Psoriatic arthritis Psoriasis Right ureteral calculus Acute CVA (cerebrovascular accident) Ureterolithiasis Obstructing left proximal ureteral stone May 2020 leftComplication of associated pyelonephritis. Emergency stenting. Asthma Gastroesophageal reflux Chronic kidney disease, stage 3 History of melanoma Right arm - removed 11/2013. Right forearm - removed 08/2011. Depression Current chronic use of systemic steroids Dermatitis Temporal giant cell arteritis Surgical History Status post cystoscopy with ureteral stent placement History of colonoscopy (~03/2015) Dr. 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 08/2011: Removed from right forearm. H/O oral surgery (~2013) Remove growth from mouth - benign. [place] teeth extracted (~2004) H/O: hysterectomy (12/11/07) LAVH/BSO. Dx: Uterine fibroids, Menorrhagia, Dysmenorrhea. Performed by Dr. Kelly at [facility] in [place], [place]. H/O dilation and curettage (~12/1989) Family History Grandfather Stroke Maternal grandfather Mother Hyperlipidemia Hypertension Father Heart disease Grandmother Heart disease Paternal grandmother Diabetes Paternal grandmother Hypertension Maternal grandmother Denies family history of Anesthesia complication Bleeding disorder Social History Smoking and tobacco/nicotine status: former use of tobacco/nicotine Quit status (tobacco/nicotine): has quit using Year quit tobacco: 1990 Former quit date comment: 10 pack year history Second hand smoke exposure: No Alcohol intake: current Alcohol intake frequency: holidays/special occasions only Alcohol type: wine Substance/Drug Use: never Caregiver/support person: Yes Lives independently: Yes Household members: none Marital status: Number of children: 1 service: No Current occupational status: disabled Current occupation: disability for back 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 [employer] Current gender identity: Female Gisell/Oriental Orthodox: Denominational Special gisell needs: Yes Agree to transfusion: No Physical Exam 2 Const: COMMON NORMALS: no acute distress GENERAL APPEARANCE: cooperative; not frail appearing HENMT: COMMON NORMALS: normocephalic, atraumatic and Normal external nose present HEAD & SCALP: normocephalic and atraumatic FACE & SINUS: normal facial exam and face symmetric NOSE: Normal external nose present Eye: COMMON NORMALS: Equal, round and reactive pupils present and EOMs intact bilaterally PUPIL: Yes Equal, round and reactive pupils present Neck/C-Spine: GENERAL: Yes trachea midline Chest: CHEST: Yes Symmetrical chest wall rise Resp: COMMON NORMALS: normal respiratory effort, No retractions, No use of accessory muscles and clear to auscultation bilaterally AUSCULTATION: clear to auscultation bilaterally Cardio: COMMON NORMALS: regular rate and regular rhythm RATE: regular rate RHYTHM: regular rhythm GI: COMMON NORMALS: Normal to inspection, nondistended, normoactive bowel sounds present and Soft to palpation PALPATION: Yes Soft to palpation and Yes Tenderness to palpation present (GI) (diffuse) Extremity: COMMON NORMALS: no pedal edema Neuro: JENNYFER COMA SCALE: document GCS findings Jennyfer coma scale eye opening: Spontaneous [place] coma scale verbal response: Orientated [place] coma scale motor response: Obey commands [place] coma scale total score: 15 S ENSORY EXAM: Yes extremities (intact) Psych: COMMON NORMALS: speech normal SPEECH: Yes normal speech Skin: COMMON NORMALS: no rashes or lesions noted GENERAL SKIN EXAM: no rashes or lesions noted Course 2 Vital Signs: Vital signs: Vital Signs Temperature 98.0 F 01/17/25 16:58 Pulse Rate 93 01/17/25 22:10 Respiratory Rate 18 01/17/25 16:58 Blood Pressure 133/82 01/17/25 22:10 Pulse Oximetry 92 01/17/25 22:10 Oxygen Delivery Me thod Room Air 01/17/25 19:30 MDM - Nausea/Vomiting/Diarrhea Medical Decision Making Blood pressure high initially. Currently normotensive. Afebrile. Belly is diffusely tender. CBC normal. Creatinine is 1.2, which is stable. BMP is otherwise normal. CRP is 53. Liver enzymes are normal. Total bili is 0.4. Urinalysis is negative save 3+ ketones. She is given a fluid bolus here. CT interestingly shows a lobulated infiltrate of the right lower lobe of the lung concerning for pneumonia. No acute abdominal pelvic findings. She will be treated for pneumonia. She will be prescribed Zofran and Reglan for the vomiting. Plenty of clear liquids. She will need repeat imaging to ensure it infiltrate is improving. She was counseled on all this. She is stable for discharge. She knows to return for any worsening symptoms. Lab Data 01/17/25 18:57 01/17/25 18:57 Radiology Impressions Abdomen/Pelvis CT 01/17/25 19:48 IMPRESSION: 1. Lobulated infiltrate at the right lower lobe, concerning for pneumonia with other etiologies such as neoplasm not excluded, consider follow-up after antibiotic therapy to ensure resolution. 2. Nonobstructing calculus on the right. 3. Colonic diverticulosis without definite significant acute inflammatory changes. Laboratory Results WBC 6.65 10^3/uL (3.29-11.43) 01/17/25 18:57 RBC 4.57 10^6/uL (3.85-5.65) 01/17/25 18:57 Hgb 13.60 g/dL (11.27-16.99) 01/17/25 18:57 Hct 42.4 % (36-47) 01/17/25 18:57 MCV 92.8 fl (85-98) 01/17/25 18:57 MCH 29.8 pg (27-33) 01/17/25 18:57 MCHC 32.1 g/dL (30-55) 01/17/25 18:57 RDW 13.2 % (12.1-15.1) 01/17/25 18:57 Plt Count 382 10^3/cmm (157-399) 01/17/25 18:57 MPV 10.8 fL (7.4-10.4) H 01/17/25 18:57 Neut % (Auto) 53.5 % 01/17/25 18:57 Lymph % (Auto) 31.0 % 01/17/25 18:57 [place] % (Auto) 12.0 % 01/17/25 18:57 Eos % (Auto) 2.4 % 01/17/25 18:57 Baso % (Auto) 0.8 % 01/17/25 18:57 Neut # (Auto) 3.56 10^3/uL (1.8-7.7) 01/17/25 18:57 Lymph # (Auto) 2.1 10^3/uL (0.8-4.8) 01/17/25 18:57 [place] # (Auto) 0.8 10^3/uL (0.2-0.9) 01/17/25 18:57 Eos # (Auto) 0.2 10^3/uL (0.0-0.8) 01/17/25 18:57 Baso # (Auto) 0.1 10^3/uL (0.0-0.1) 01/17/25 18:57 Nucleated RBC % (auto) 0 % 01/17/25 18:57 Nucleated RBCs # 0.0 /100WBC 01/17/25 18:57 Sodium 143 mmol/L (136-145) 01/17/25 18:57 Potassium 4.5 mmol/L (3.5-5.1) 01/17/25 18:57 Chloride 100 mmol/L (98-107) 01/17/25 18:57 Carbon Dioxide 23 mmol/L (22-29) 01/17/25 18:57 Anion Gap 24.5 (5-19) H 01/17/25 18:57 BUN 22 mg/dL (8-23) 01/17/25 18:57 Creatinine 1.2 mg/dL (0.5-0.9) H 01/17/25 18:57 GFR Calculation 45.5 mL/min (90-130) L 01/17/25 18:57 Glucose 89 mg/dL (65-115) 01/17/25 18:57 Calculated Osmolality 299 mOsm/kg (285-295) H 01/17/25 18:57 Calcium 9.8 mg/dL (8.5-10.5) 01/17/25 18:57 Total Bilirubin 0.4 mg/dL (0.15-1.2) 01/17/25 18:57 AST 48 U/L (0-32) H 01/17/25 18:57 ALT 27 U/L (0-33) 01/17/25 18:57 Alkaline Phosphatase 149 U/L (35-105) H 01/17/25 18:57 C-Reactive Protein 53.0 mg/L (0.0-4.9) H 01/17/25 18:57 Total Protein 8.8 g/dL (6.6-8.7) H 01/17/25 18:57 Albumin 4.1 g/dL (3.5-5.2) 01/17/25 18:57 Globulin 4.7 g/dL (1.3-4.6) H 01/17/25 18:57 Lipase 24 U/L (13-60) 01/17/25 18:57 Urine Color Dark yellow (Yellow) A 01/17/25 19:32 Urine Appearance Clear (CLEAR) 01/17/25 19:32 Urine pH 5.5 (5-7) 01/17/25 19:32 Ur Specific [place] 1.031 (1.005-1.030) H 01/17/25 19:32 Urine Protein 1+ (Negative) A 01/17/25 19:32 Urine Glucose (UA) Negative (Normal) 01/17/25 19:32 Urine Ketones 3+ (Negative) H 01/17/25 19:32 Urine Blood Negative (Negative) 01/17/25 19:32 Urine Nitrate Negative (Negative) 01/17/25 19:32 Urine Bilirubin Negative (Negative) 01/17/25 19:32 Urine Urobilinogen 1.0 mg/dL (Negative) 01/17/25 19:32 Ur Leukocyte Esterase Negative (Negative) 01/17/25 19:32 Amorphous Sediment Not Reportable 01/17/25 19:32 All radiology interpretation(s) finalized by discharge Discharge Plan Discharge Patient Disposition: Home Clinical Impression: Pneumonia Qualifiers: Laterality: right Lung location: lower lobe of lung Condition: Stable Prescriptions: New metoclopramide HCl [Reglan] 10 mg tablet 10 mg PO Q6H PRN (Reason: nausea and vomiting) Qty: 28 0RF doxycycline hyclate 100 mg tablet 100 mg PO BID 7 Days Qty: 14 0RF Continued ondansetron 4 mg tablet,disintegrating 4 mg PO Q8H PRN (Reason: nausea and vomiting) Qty: 30 0RF No Action prednisone 5 mg tablet 5 mg PO DAILY Qty: 90 1RF Enbrel 50 mg/mL (1 mL) syringe 50 mg SUBCUT Q7D Qty: 4 5RF clobetasol 0.05 % cream 1 applic topical BID 14 Days Qty: 60 1RF leflunomide 20 mg tablet 20 mg PO DAILY Qty: 90 1RF methocarbamol 750 mg tablet See Rx Instructions PO Q8H PRN Rx Instructions: One or two tablets orally every 8 hours PRN; amlodipine 10 mg tablet 10 mg PO DAILY Qty: 90 3RF fluticasone propionate 50 mcg/actuation spray,suspension See Rx Instructions .ROUTE .COMPLEX Qty: 16 2RF Dose Instruction: Use 2 spray(s) in each nostril once daily Rx Instructions: Use 2 spray(s) in each nostril once daily sertraline 100 mg tablet See Rx Instructions .ROUTE .COMPLEX Qty: 90 1RF Dose Instruction: Take 1 tablet by mouth once daily Rx Instructions: Take 1 tablet by mouth once daily albuterol sulfate [ProAir HFA] 90 mcg/actuation HFA aerosol inhaler 2 puff INHALATION Q4H PRN (Reason: Shortness Of Breath) Qty: 8.5 6RF Zyrtec 10 mg capsule 10 mg PO DAILY Qty: 90 2RF famotidine 20 mg tablet See Rx Instructions .ROUTE .COMPLEX Qty: 180 3RF Dose Instruction: Take 1 tablet by mouth twice daily Rx Instructions: Take 1 tablet by mouth twice daily atorvastatin 20 mg tablet See Rx Instructions .ROUTE .COMPLEX Qty: 90 3RF Dose Instruction: Take 1 tablet by mouth once daily Rx Instructions: Take 1 tablet by mouth once daily metoprolol succinate 25 mg tablet extended release 24 hr See Rx Instructions .ROUTE .COMPLEX Qty: 30 2RF Dose Instruction: TAKE 1 TABLET BY MOUTH AT BEDTIME Rx Instructions: TAKE 1 TABLET BY MOUTH AT BEDTIME Multivitamin 50 Plus Tablet 1 tab PO DAILY aspirin 81 mg Tablet,Delayed Release (Dr/Ec) 81 mg PO DAILY Qty: 30 0RF cholecalciferol (vitamin D3) [Vitamin D3] 50 mcg (2,000 unit) Capsule 50 mcg PO DAILY Discharge Orders: Discharge ED (Routine); Ordered 01/17/25 Ordered By: Abdirahman Yarbrough Referrals: Roberta Billingsley MD [Primary Care Provider, Family Practice] Patient Instructions: Pneumonia (ED), Opioid Safety, Pain Management, Patient Portal & [place] Instructions Activity Restrictions/Additional Instructions: Take nausea medication scheduled every 4 hours while awake for the first 48 hours, then as needed following that. Drink plenty of clear liquids. Antibiotics as directed. Return for worsening symptoms despite treatment. Call your doctor Monday for a follow-up appointment. You should have a repeat x-ray in 3 to 4 weeks to ensure pneumonia is resolving. Print Language: Turkmen Coding Level of Care Code ED Kaitara Taraka for Michelle Redmond
[2025-01-17 22:10] VITALS: BP 133/82; PULSE 93; O2SAT 92
== END 2025-01-17 22:11 | disposition home or self-care (01) ==
PROVIDERS: Emergency Provider Emergency Medicine; Family Provider Family Medicine; PCP Family Medicine
DX: J18.9 Pneumonia, unspecified organism (principal); Z79.82 Long term (current) use of aspirin; Z87.891 Personal history of nicotine dependence; Z86.73 Personal history of transient ischemic attack (TIA), and cerebral infarction without residual deficits; Z85.828 Personal history of other malignant neoplasm of skin; N18.30 Chronic kidney disease, stage 3 unspecified
CPT/HCPCS: 36415; 74177; 80053; 81003; 83690; 85025; 86140; 96361; 96374; 99285; J2405; J7040; J9999